=== PATIENT | female | born 1955 | race Caucasian/White ===

== ENCOUNTER 2020-10-11 10:39 | Outpatient (REF) | payer OTHER, SELFPAY ==
[2020-10-11 11:54] LABS: Glucose Urine UA NEG (NEG); Leukocyte Esterase Urine NEG (NEG); Nitrite Urine NEG (NEG); PH 6.5 (5.0-8.0); Urine Blood NEG (NEG); Urine Ketones NEG (NEG); Urine Protein NEG (NEG-TRACE)
[2020-10-11 11:57] LABS: Appearance Urine CLEAR; Color Urine YELLOW
[2020-10-11 11:58] LABS: MANUAL DIFF FLAG NO
[2020-10-11 12:04] LABS: Basophils Percent Auto 0.5 % (0-2); Eosinophils Absolute Auto 0.2 X10*3/uL (0.0-0.4); Eosinophils Percent Auto 4.1 % (0-4); Hematocrit 39.7 % (37-47); Hemoglobin 13.2 g/dl (12.0-16.0); Lymphocytes Absolute Auto 1.2 X10*3/uL (1.2-4.9); Lymphocytes Percent Auto 28.5 % (20-40); Mean Corpuscular HGB Conc 33.2 g/dl (31.0-35.0); Mean Corpuscular Hemoglobin 32.4 pg (27.0-33.0); Mean Corpuscular Volume 97.3 fL (80-98); Mean Platelet Volume 9.5 fL (9.4-12.3); Monocytes Absolute Auto 0.3 X10*3/uL (0.1-1.2); Monocytes Percent Auto 7.6 % (2-11); Neutrophils Absolute Auto 2.4 X10*3/uL (2.0-8.3); Neutrophils Percent Auto 59.3 % (45-73); Platelet Count 387 X10*3/uL (160-400); Red Blood Count 4.08 X10*6/uL (4.20-5.50); Red Cell Distribution Width 11.9 % (11.0-16.0); White Blood Count 4.1 X10*3/uL (4.8-10.8)
[2020-10-11 12:30] LABS: Alanine Aminotransferase 12 U/L (0-31); Albumin Level 4.3 g/dL (3.5-5.0); Alkaline Phosphatase 86 U/L (39-117); Anion Gap 14 (12-20); Aspartate Amino Transferase 16 U/L (5-31); Bilirubin Total 0.2 mg/dL (0.0-1.0); Blood Urea Nitrogen 17 mg/dL (9-16); C Reactive Protein 0.06 mg/dL (< or = 0.50); Calcium 9.1 mg/dL (8.4-10.2); Carbon Dioxide 26 mmol/L (22-29); Chloride 105 mmol/L (96-108); Cholesterol 200 mg/dL; Estimated Glomerular Filt Rate > 60; Glucose Fasting 95 mg/dL (60-99); HDL Cholesterol 59 mg/dL; LDL Cholesterol Calculated 127 mg/dl; Potassium 4.2 mmol/L (3.3-5.1); Sodium 141 mmol/L (135-145); Total Protein 7.1 g/dL (6.5-8.0); Triglycerides 71 mg/dL
[2020-10-11 12:40] LABS: TSH reflex Free T4 1.33 uIU/mL (0.32-4.0)
[2020-10-11 12:56] LABS: Erythrocyte Sedimentation Rate 6 MM/HR (0-20)
[2020-10-12 05:32] LABS: Lyme Abs Screen <0.90 index
[2020-10-12 13:31] LABS: Anti Nuclear Antibody Screen NEGATIVE (NEGATIVE)
== END 2020-10-11 10:40 | disposition home or self-care (01) ==
LOC: HO.LAB 10:39
PROVIDERS: PCP Internal Medicine; Visit Provider Internal Medicine
DX: R53.83 Other fatigue (principal); M79.10 Myalgia, unspecified site; R20.2 Paresthesia of skin; M79.604 Pain in right leg; M79.605 Pain in left leg; E78.5 Hyperlipidemia, unspecified
CPT/HCPCS: 36415; 80053; 80061; 81003; 82550; 84443; 85025; 85652; 86038; 86039; 86140; 86617; 86618

== ENCOUNTER 2021-01-15 07:47 | Outpatient (REF) | payer OTHER, SELFPAY ==
--- NOTE | 2021-01-15 07:51 | EMG_ITS ---
This is a 65-year-old woman, who has had pain in both of her legs for many years as well as low back pain. 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 PHYSICAL EXAMINATION: On examination, she is alert and oriented with normal intellectual functions. Cranial nerves II through XII are normal. Muscle tone and strength are normal in all 4 extremities. Reflexes symmetrical. IMPRESSION: Rule out lumbar radiculopathy. Nerve conduction EMG study: Mild motor axonal loss in the peroneal nerves bilaterally, otherwise normal study. No evidence of diffuse neuropathy. Normal EMG of the left L4-S1 innervated muscles. MD JESSICA Thao/ALEKSANDR / [id number]
== END 2021-01-15 07:48 | disposition home or self-care (01) ==
LOC: HO.NEURO 07:47
PROVIDERS: Visit Provider Internal Medicine
DX: R20.2 Paresthesia of skin (principal); M79.604 Pain in right leg; M79.605 Pain in left leg
CPT/HCPCS: 95885; 95912

== ENCOUNTER → 2022-05-29 15:09 | Outpatient (BNVA) | payer OTHER, SELFPAY | PROVIDERS: PCP Internal Medicine; Visit Provider Nurse Practitioner Psychiatric/Mental Health | DX: F11.20 Opioid dependence, uncomplicated (principal); Z51.81 Encounter for therapeutic drug level monitoring; Z79.899 Other long term (current) drug therapy | CPT/HCPCS: 80305 ==

== ENCOUNTER → 2022-06-03 15:01 | Outpatient (BNVA) | payer OTHER, SELFPAY | PROVIDERS: PCP Internal Medicine; Visit Provider Nurse Practitioner Psychiatric/Mental Health | DX: F11.20 Opioid dependence, uncomplicated (principal); Z51.81 Encounter for therapeutic drug level monitoring; Z79.899 Other long term (current) drug therapy | CPT/HCPCS: 80305 ==

== ENCOUNTER → 2022-06-10 15:30 | Outpatient (BNVA) | payer OTHER, SELFPAY | PROVIDERS: PCP Internal Medicine; Visit Provider Nurse Practitioner Psychiatric/Mental Health | DX: F11.20 Opioid dependence, uncomplicated (principal); Z51.81 Encounter for therapeutic drug level monitoring; Z79.899 Other long term (current) drug therapy | CPT/HCPCS: 80305 ==

== ENCOUNTER → 2022-06-19 15:38 | Outpatient (BNVA) | payer OTHER, SELFPAY | PROVIDERS: PCP Internal Medicine; Visit Provider Nurse Practitioner Psychiatric/Mental Health | DX: Z51.81 Encounter for therapeutic drug level monitoring (principal); F11.20 Opioid dependence, uncomplicated | CPT/HCPCS: 80305 ==

== ENCOUNTER → 2022-06-29 15:08 | Outpatient (BNVA) | payer OTHER, SELFPAY | PROVIDERS: PCP Internal Medicine; Visit Provider Nurse Practitioner Psychiatric/Mental Health | DX: Z51.81 Encounter for therapeutic drug level monitoring (principal) ==

== ENCOUNTER → 2022-07-07 15:16 | Outpatient (BNVA) | payer OTHER, SELFPAY | PROVIDERS: PCP Internal Medicine; Visit Provider Nurse Practitioner Psychiatric/Mental Health | DX: Z51.81 Encounter for therapeutic drug level monitoring (principal); F11.20 Opioid dependence, uncomplicated; F41.9 Anxiety disorder, unspecified | CPT/HCPCS: 80305 ==

== ENCOUNTER → 2022-07-21 15:52 | Outpatient (BNVA) | payer OTHER, SELFPAY | PROVIDERS: PCP Internal Medicine; Visit Provider Nurse Practitioner Psychiatric/Mental Health | DX: F11.20 Opioid dependence, uncomplicated (principal); Z51.81 Encounter for therapeutic drug level monitoring; Z79.899 Other long term (current) drug therapy ==

== ENCOUNTER 2022-08-13 15:40 | Outpatient (REF) | payer OTHER, SELFPAY ==
[2022-08-13 16:09] LABS: Basophils Percent Auto 0.5 % (0-2); Eosinophils Absolute Auto 0.2 X10*3/uL (0.0-0.4); Eosinophils Percent Auto 5.6 % (0-4); Hematocrit 37.8 % (37.0-47.0); Hemoglobin 12.8 g/dl (12.0-16.0); Imm Gran Abs Auto 0.01 X10*3/uL (0.00-0.03); Imm Gran Pct Auto 0.3 % (0.0-0.4); Lymphocytes Absolute Auto 1.3 X10*3/uL (1.2-4.9); Lymphocytes Percent Auto 33.7 % (20-40); MANUAL DIFF FLAG NO; Mean Corpuscular HGB Conc 33.9 g/dl (31.0-35.0); Mean Corpuscular Hemoglobin 32.2 pg (27.0-33.0); Mean Platelet Volume 9.1 fL (9.4-12.3); Monocytes Absolute Auto 0.4 X10*3/uL (0.1-1.2); Monocytes Percent Auto 10.2 % (2-11); Neutrophils Absolute Auto 1.9 x10*3/uL (2.0-8.3); Neutrophils Percent Auto 49.7 % (45-73); Platelet Count 354 X10*3/uL (160-400); Red Blood Count 3.98 X10*6/uL (4.20-5.50); Red Cell Distribution Width 11.8 % (11.0-16.0); White Blood Count 3.7 X10*3/uL (4.8-10.8)
[2022-08-13 16:29] LABS: Appearance Urine Clear; Color Urine Yellow; Glucose Urine UA Negative (Negative); Leukocyte Esterase Urine Trace (Negative); Nitrite Urine Negative (Negative); Specific Gravity - Urine 1.025 (1.005-1.025); UMIC TRIGGER UACC YES; Urine Blood Negative (Negative); Urine Ketones Negative (Negative); Urine Protein Negative (Neg-Trace)
[2022-08-13 16:32] LABS: Bacteria Urine None Seen (None Seen); Hyaline Casts Urine 0-2 /LPF (0-2); RBC Urine 0-2 /HPF (0-2); WBC Urine 0-5 /HPF (0-5)
[2022-08-13 16:37] LABS: Alanine Aminotransferase 10 U/L (0-31); Albumin Level 4.2 g/dL (3.5-5.0); Alkaline Phosphatase 100 U/L (39-117); Anion Gap 8 (12-20); Aspartate Amino Transferase 16 U/L (5-31); Bilirubin Direct < 0.2 mg/dL (0.0-0.5); Bilirubin Total 0.4 mg/dL (0.0-1.0); Blood Urea Nitrogen 19 mg/dL (9-16); Calcium 9.2 mg/dL (8.4-10.2); Carbon Dioxide 26 mmol/L (22-29); Chloride 110 mmol/L (96-108); Estimated Glomerular Filt Rate > 60; Glucose Random 118 mg/dL (60-115); Potassium 4.1 mmol/L (3.3-5.1); Sodium 140 mmol/L (135-145); Total Protein 6.8 g/dL (6.5-8.0)
[2022-08-13 16:43] LABS: Erythrocyte Sedimentation Rate 5 MM/HR (0-20)
[2022-08-13 16:53] LABS: TSH reflex Free T4 1.33 uIU/mL (0.32-4.0); Vitamin D 25-OH Total 6.9 ng/mL (>30)
== END 2022-08-13 15:41 | disposition home or self-care (01) ==
LOC: HO.LAB 15:40
PROVIDERS: Absent Provider Nurse Practitioner Psychiatric/Mental Health; PCP Internal Medicine; Visit Provider Internal Medicine
DX: R10.9 Unspecified abdominal pain (principal); E55.9 Vitamin D deficiency, unspecified; F11.20 Opioid dependence, uncomplicated
CPT/HCPCS: 36415; 80053; 81001; 81003; 82248; 82306; 84443; 85025; 85652

== ENCOUNTER → 2022-08-18 16:01 | Outpatient (BNVA) | payer OTHER, SELFPAY | PROVIDERS: PCP Internal Medicine; Visit Provider Nurse Practitioner Psychiatric/Mental Health | DX: Z13.89 Encounter for screening for other disorder (principal) ==

== ENCOUNTER → 2022-08-25 11:00 | Outpatient (BNVA) | payer OTHER, SELFPAY | PROVIDERS: PCP Internal Medicine; Visit Provider Physician Assistant | DX: Z13.89 Encounter for screening for other disorder (principal) ==

== ENCOUNTER 2022-08-25 12:29 | Outpatient (REF) | payer OTHER, SELFPAY ==
[2022-08-25 14:13] LABS: MANUAL DIFF FLAG NO
[2022-08-25 14:23] LABS: Basophils Percent Auto 0.2 % (0-2); Eosinophils Absolute Auto 0.2 X10*3/uL (0.0-0.4); Hematocrit 36.2 % (37.0-47.0); Hemoglobin 12.1 g/dl (12.0-16.0); Imm Gran Abs Auto 0.01 X10*3/uL (0.00-0.03); Imm Gran Pct Auto 0.2 % (0.0-0.4); Lymphocytes Absolute Auto 1.3 X10*3/uL (1.2-4.9); Lymphocytes Percent Auto 33.2 % (20-40); Mean Corpuscular HGB Conc 33.4 g/dl (31.0-35.0); Mean Corpuscular Hemoglobin 32.1 pg (27.0-33.0); Mean Platelet Volume 9.2 fL (9.4-12.3); Monocytes Absolute Auto 0.4 X10*3/uL (0.1-1.2); Monocytes Percent Auto 9.4 % (2-11); Neutrophils Absolute Auto 2.1 x10*3/uL (2.0-8.3); Platelet Count 346 X10*3/uL (160-400); Red Blood Count 3.77 X10*6/uL (4.20-5.50)
[2022-08-25 14:38] LABS: Lipase 17 U/L (8-78)
[2022-09-13 07:11] LABS: Alcohol, Ethyl Urine Screen SEE COMMENTS
== END 2022-08-25 12:30 | disposition home or self-care (01) ==
LOC: HO.WFDLDS 12:29
PROVIDERS: Visit Provider Physician Assistant
DX: R10.10 Upper abdominal pain, unspecified (principal); K52.9 Noninfective gastroenteritis and colitis, unspecified; R11.2 Nausea with vomiting, unspecified; F10.10 Alcohol abuse, uncomplicated
CPT/HCPCS: 80307; 83690; 85025

== ENCOUNTER 2022-09-02 16:05 | Outpatient (REF) | payer OTHER, SELFPAY ==
[2022-09-06 06:38] LABS: Fecal Fat Qualitative Abnormal (Normal)
[2022-09-11 13:59] LABS: Pancreatic Elastase-1 466 mcg/g
== END 2022-09-02 16:06 | disposition home or self-care (01) ==
LOC: HO.LNP 16:05
PROVIDERS: Visit Provider Physician Assistant
DX: R19.7 Diarrhea, unspecified (principal); R11.2 Nausea with vomiting, unspecified
CPT/HCPCS: 82656; 82705

== ENCOUNTER → 2022-09-15 16:02 | Outpatient (BNVA) | payer OTHER, SELFPAY | PROVIDERS: PCP Internal Medicine; Visit Provider Nurse Practitioner Psychiatric/Mental Health | DX: Z13.89 Encounter for screening for other disorder (principal) ==

== ENCOUNTER → 2022-09-16 14:59 | Outpatient (BNVA) | payer OTHER, SELFPAY | PROVIDERS: PCP Internal Medicine; Visit Provider Physician Assistant | DX: Z13.89 Encounter for screening for other disorder (principal) ==

== ENCOUNTER 2022-09-28 14:38 | Outpatient (REF) | payer OTHER, SELFPAY ==
--- NOTE | ~2022-09-28 | US_ITS ---
EXAMINATION: US ABDOMEN COMPLETE CLINICAL INFORMATION: Upper abdominal pain, unspecified. COMPARISON: Ultrasound abdomen complete 10/08/2015. TECHNIQUE: Real-time imaging of the abdominal viscera. FINDINGS: PANCREAS: Normal. ABDOMINAL AORTA: The proximal, mid, and distal segments are normal in caliber. INFERIOR VENA CAVA: Visualized portions are normal. LIVER: The liver is normal in size. The liver contour is normal. There is mild increased liver parenchymal echogenicity, consistent with hepatic steatosis. No focal hepatic lesion. There is no intrahepatic biliary duct dilatation seen. GALLBLADDER: Normal. The gallbladder is physiologically distended without evidence of stones, sludge, polyps, wall thickening or pericholecystic fluid. COMMON BILE DUCT: Normal in caliber measuring 0.5 cm in diameter. RIGHT KIDNEY: Multiple punctate echogenic foci are noted which do not shadow and do not demonstrate twinkle artifact probably representing vascular interfaces rather than calculi. No hydronephrosis. No renal calculi or focal parenchymal lesions. The kidney measures 9.2 cm in maximum dimension. LEFT KIDNEY: There is a single 2 mm echogenic focus present at the lower pole of the left kidney that may represent a nonobstructing stone. In addition, similar punctate echogenic foci without shadowing or twinkle artifact are noted in the left renal pelvis as well, also probably represented vascular interfaces. No hydronephrosis . The kidney measures 8.5 cm in maximum dimension. SPLEEN: Normal. The spleen measures 8.4 cm in maximum dimension. FREE FLUID: None. US/US abdomen complete IMPRESSION: 1. Hepatic steatosis. 2. Punctate echogenic foci in both kidneys which do not demonstrate twinkle artifact and probably represents vascular interfaces rather calculi. 3. A 2 mm large echogenic focus in the left lower pole may represent a nonobstructing calculus.
== END 2022-09-28 14:39 | disposition home or self-care (01) ==
LOC: HO.HMGCX 14:38
PROVIDERS: PCP Internal Medicine; Visit Provider Physician Assistant
DX: R10.10 Upper abdominal pain, unspecified (principal); Z78.9 Other specified health status
CPT/HCPCS: 76700

== ENCOUNTER → 2022-10-13 16:10 | Outpatient (BNVA) | payer OTHER, SELFPAY | PROVIDERS: PCP Internal Medicine; Visit Provider Nurse Practitioner Psychiatric/Mental Health | DX: Z13.89 Encounter for screening for other disorder (principal) ==

== ENCOUNTER → 2022-10-27 14:30 | Outpatient (BNVA) | payer OTHER, SELFPAY | PROVIDERS: PCP Internal Medicine; Visit Provider Nurse Practitioner Psychiatric/Mental Health | DX: Z13.89 Encounter for screening for other disorder (principal) ==

== ENCOUNTER → 2022-11-24 14:39 | Outpatient (BNVA) | payer OTHER, SELFPAY | PROVIDERS: PCP Internal Medicine; Visit Provider Nurse Practitioner Psychiatric/Mental Health ==

== ENCOUNTER 2023-01-20 14:58 | Outpatient (AMB) | payer OTHER, SELFPAY ==
--- NOTE | 2023-01-20 15:01 | A.OFFVIS_ITS ---
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 Has decided she is going to retire, excited to start this process. Reports that she would like to be done working before her birthday in April. Patient expressing anxiety as she has found a lump in her breast and is concerned that it is a recurrence of cancer. She has an ultrasound and mammogram scheduled for February 12. 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 [facility] Medical History (Updated 01/21/23 @ 17:40 by Lisa Kidd CNP) Allergic rhinitis Bilateral lower extremity pain Depression Fatigue History of breast cancer Lumbar degenerative disc disease Myalgia Opioid use disorder, moderate, dependence Osteopenia Paresthesia of bilateral legs Surgical History History of lumpectomy of both breasts Hx of tonsillectomy Family History Father Hypertension Cardiovascular disease Stroke Mother Hypertension Stroke Cardiovascular disease Sister Breast cancer Maternal Aunt Breast cancer Other Mental health problem Substance abuse Social History Housing: House Alcohol intake: current Alcohol intake frequency: 0-2 drinks per day Patient Tobacco Use Status: Never used Tobacco e-Cigarette/Vaping Use: Never Used Second Hand Smoke Exposure: Yes service: No Current occupational status: employed Cognitive needs: No Hearing needs: No Vision needs: No Review of Systems Const Reports as per HPI and Reports no additional complaints Physical Exam Vital Signs: Last Vital Signs Pulse 80 01/20/23 15:19 BP 128/72 01/20/23 15:19 Pulse Ox 97 01/20/23 15:19 Oxygen Delivery Method Room Air 01/20/23 15:19 Const General: cooperative, no acute distress and alert Nutritional Appearance: average body habitus Orientation/consciousness: patient oriented x3 Limitations: no limitations Neuro General: patient oriented x3 Psych Appearance: grossly normal Mental Status: mental status grossly normal Speech and movement: Normal speech and movement present Affect: normal affect Attitude: cooperative Thought process: Normal thought process present Thought content: Normal thought content present Insight: Good insight present (Psych) Judgement: Good judgement present (Psych) Results AMB 14 Panel Urine Drug Screen Urine Marijuana (THC) Negative Last Edit by Sheila Tenorio CMA on 01/20/23 15:30 Urine Cocaine Negative Last Edit by Sheila Tenorio CMA on 01/20/23 15:30 Urine Morphine Negative Last Edit by Sheila Tenorio CMA on 01/20/23 15:30 Urine Methamphetamine Negative Last Edit by Sheila Tenorio CMA on 01/20/23 15:30 Urine Amphetamine Negative Last Edit by Sheila Tenorio CMA on 01/20/23 15:3 0 Urine Benzodiazepine Negative Last Edit by Sheila Tenorio CMA on 01/20/23 15:30 Urine Barbiturates Negative Last Edit by Sheila Tenorio CMA on 01/20/23 15: 30 Urine Methadone Negative Last Edit by Sheila Tenorio CMA on 01/20/23 15:30 Urine Buprenorphine Positive Last Edit by Sheila Tenorio CMA on 01/20/23 15 :30 Urine Tricyclic Antidepressant Positive Last Edit by Sheila Tenorio CMA on 01/20/23 15:30 Urine MDMA Negative Last Edit by Sheila Tenorio CMA on 01/20/23 15:30 Urine Oxycodone Negative Last Edit by Sheila Tenorio CMA on 01/20/23 15:30 Urine Phencyclidine Negative Last Edit by Sheila Tenorio CMA on 01/20/23 15 :30 Urine Propoxyphene Negative Last Edit by Sheila Tenorio CMA on 01/20/23 15: 30 Results Reviewed Results Reviewed: Laboratory Last Values POC Urine Buprenorphine Positive 01/20/23 15:06 POC Urine Morphine Negative 01/20/23 15:06 POC Urine Oxycodone Negative 01/20/23 15:06 POC Urine Methadone Negative 01/20/23 15:06 POC Urine Propoxyphene Negative 01/20/23 15:06 POC Urine Barbiturates Negative 01/20/23 15:06 POC U Tricyclic Antidpr Positive 01/20/23 15:06 POC Urine PCP Negative 01/20/23 15:06 POC Ur Amphetamines Negative 01/20/23 15:06 POC Ur Methamphetamine Negative 01/20/23 15:06 POC Urine MDMA Negative 01/20/23 15:06 POC Ur Benzodiazepine Negative 01/20/23 15:06 POC Urine Cocaine Negative 01/20/23 15:06 POC Ur Marijuana (THC) Negative 01/20/23 15:06 Assessment & Plan Assessment & Plan (1) Opioid use disorder, moderate, dependence: Code(s): F11.20 - Opioid dependence, uncomplicated Plan: * Continue Suboxone at current dose * Follow-up 4 weeks * Encouraged patient to call office with any questions or concerns prior to next appointment. Orders: Orders AMB 14 Panel Urine Drug Screen 01/20/23 Z51.81 - Encounter for therapeutic drug level monitoring Medications: Refilled buprenorphine-naloxone 8-2 mg (Suboxone) 2 film sublingual DAILY 60 ea 0RF buprenorphine-naloxone 8-2 mg (Suboxone) 2 film sublingual DAILY 28 ea 0RF Coding Level of Care Code Est Pt Level 3 (72422) Diagnoses Opioid use disorder, moderate, dependence F11.20
[2023-01-20 15:19] VITALS: BP 128/72; PULSE 80; O2SAT 97
== END 2023-01-20 15:35 | disposition home or self-care (01) ==
LOC: HO.HCC 14:58
PROVIDERS: PCP Internal Medicine; Visit Provider Nurse Practitioner Psychiatric/Mental Health
DX: F11.20 Opioid dependence, uncomplicated (principal)
CPT/HCPCS: 99213

== ENCOUNTER → 2023-01-20 14:58 | Outpatient (BNVA) | payer OTHER, SELFPAY | PROVIDERS: PCP Internal Medicine; Visit Provider Nurse Practitioner Psychiatric/Mental Health | DX: F11.20 Opioid dependence, uncomplicated (principal); F41.9 Anxiety disorder, unspecified; Z51.81 Encounter for therapeutic drug level monitoring | CPT/HCPCS: 80305 ==

== ENCOUNTER → 2023-02-12 13:00 | Outpatient (BNV) | payer OTHER, SELFPAY | PROVIDERS: PCP Internal Medicine; Visit Provider Radiology Diagnostic Radiology | DX: N63.11 Unspecified lump in the right breast, upper outer quadrant (principal); Z85.3 Personal history of malignant neoplasm of breast | CPT/HCPCS: 76642; 77062; 77066 ==

== ENCOUNTER 2023-02-12 13:08 | Outpatient (REF) | payer OTHER, SELFPAY ==
--- NOTE | ~2023-02-12 | MM_ITS ---
EXAMINATION: MM DIAGNOSTIC DIGITAL BREAST TOMOSYNTHESIS, BILATERAL RIGHT BREAST ULTRASOUND CLINICAL INFORMATION: History of conservatively treated right breast cancer now with a palpable lump in the 10:00 position of the right breast. Patient also presents for screening left mammography. COMPARISON: Mammography: This study is compared with prior sonography mammography dating back to 2018. MAMMOGRAM: TECHNIQUE: Digital breast tomosynthesis is performed in both the craniocaudal and mediolateral oblique views along with computer-aided detection (CAD). Synthesized 2D images are generated from the tomosynthesis. FINDINGS: There are scattered areas of fibroglandular density (ACR BI-RADS breast composition Category b). There are architectural changes of the medial aspect of the right breast from prior breast cancer surgery. There are no significant masses, abnormal calcifications, or other abnormalities. There are no mammographic signs of malignancy at the current time. ULTRASOUND: Sonography of the palpable area of concern, 10:00 7 cm from the nipple, was performed. In this location there is a 5 mm x 4 mm x 2 mm superficially located, normal intramammary lymph node. MM/MM tomosynthesis diagnostic BI IMPRESSION: No mammographic evidence of malignancy. A normal, superficially located lymph node accounts for the patient's palpable lump. Results are provided to the patient at time of visit by the technologist. ASSESSMENT: BI-RADS BI-RADS 2 - Benign Findings RECOMMENDATION: 1 year F/U This patient's information was entered into a reminder system with a target due date for their next mammogram.
== END 2023-02-12 13:09 | disposition home or self-care (01) ==
LOC: HO.MAMMO 13:08
PROVIDERS: PCP Internal Medicine; Visit Provider Internal Medicine
DX: N63.11 Unspecified lump in the right breast, upper outer quadrant (principal)
CPT/HCPCS: 76642; 77062; 77066

== ENCOUNTER 2023-02-15 16:33 | Emergency (ER) | payer OTHER, SELFPAY ==
--- NOTE | 2023-02-15 18:30 | ED.GENADULT ---
HPI - General Adult General Chief complaint: Abdominal Pain Stated complaint: vomitng/abd pain Source: patient Mode of arrival: ambulatory Limitations: no limitations History of Present Illness HPI narrative: Patient is a 67 year old assigned female at with a history of alcohol abuse and anxiety presenting to the emergency department today with abdominal pain. Patient states that starting earlier today she began to have abdominal pain, nausea, and vomiting. Patient denies any dizziness, lightheadedness, fever, chills, blurry vision, double vision, loss of vision, chest pain, difficulty breathing, shortness of breath, back pain, night sweats, pain with urination, increased urinary frequency, increased urinary urgency, blood in her urine or stool, syncope or a near syncopal episode, recent trauma or falls, bowel incontinence, bladder incontinence, bowel retention, bladder retention, or any other complaints at this time. Onset (ago): hour(s) Location: abdomen Radiation: non-radiation Severity: mild Severity scale (1-10): 3 Quality: aching and dull Pain Consistency: constant Relieving factors: none Exacerbating factors: none Associated symptoms: nausea/vomiting Treatments prior to arrival: none Related Data Previous Rx's Medication Instructions Recorded loratadine 10 mg tablet (Allergy 10 mg PO DAILY PRN allergy 01/10/21 Relief (loratadine)) symptoms 90 days #90 tabs ibuprofen 800 mg tablet 800 mg PO Q8H PRN for pain #90 tabs 04/06/21 pantoprazole 40 mg tablet,delayed 40 mg PO DAILY 30 days #30 tabs 05/25/22 release pantoprazole 20 mg tablet,delayed 40 mg PO ONCE 30 days #60 tabs 08/25/22 release bisacodyl 5 mg tablet,delayed 10 mg PO ONCE colonoscopy prep 1 09/16/22 release (Dulcolax (bisacodyl)) day #2 tabs polyethylene glycol 3350 17 238 g PO ONCE 1 day #238 grams 09/16/22 gram/dose oral powder (Miralax) methylcellulose (laxative) 500 mg 500 mg PO BID #60 tabs 09/17/22 tablet (Citrucel) lamotrigine 150 mg tablet 150 mg PO DAILY #30 tabs 11/24/22 buprenorphine 8 mg-naloxone 2 mg 2 film sublingual DAILY #60 ea 02/17/23 sublingual film (Suboxone) Allergies Allergy/AdvReac Type Severity Reaction Status Date / Time alprazolam [From XANAX] Allergy Unknown SEIZURE Verified 02/17/23 15:34 tramadol Allergy Unknown Unknown Verified 02/17/23 15:34 Cymbalta Allergy Unknown headaches Uncoded 02/17/23 15:34 Gabapentin Allergy Unknown abdominal Uncoded 02/17/23 15:34 pains Review of Systems Constitutional: Constitutional: Reports no additional constitutional complaints, Denies chills, Denies fever(s) and Denies night sweats Eyes: Eyes: Reports no additional eye complaints, Denies blurry vision, Denies change in vision, Denies diplopia, Denies eye discharge, Denies loss of vision and Denies eye pain ENT: Denies dizziness Cardiovascular: Cardiovascular: Reports no additional cardiovascular complaints, Denies chest pain, Denies lightheadedness, Denies Loss of Consciousness and Denies dyspnea Respiratory: Respiratory: Reports no additional respiratory complaints and Denies dyspnea Gastrointestinal: Gastrointestinal: Reports no additional gastrointestinal complaints, Reports abdominal pain, Denies melena, Denies hematochezia, Denies change in bowel habits, Denies change in stool character, Reports nausea and Reports vomiting Genitourinary: Genitourinary: Denies hematuria, Denies urinary frequency, Denies dysuria, Denies urinary incontinence, Denies urinary hesitancy and Denies urinary urgency Musculoskeletal: Musculoskeletal: Reports no additional musculoskeletal complaints, Denies numbness and Denies tingling Neurologic: Denies dizziness, Denies loss of vision, Denies numbness and Denies tingling Psychiatric: Psychiatric: Reports no additional psychiatric complaints Endocrine: Endocrine: Reports no additional endocrine complaints Hematologic/Lymphatic: Hematologic/Lymphatic: Reports no additional hematologic/lymphatic complaints Allergic/Immunologic: Allergic/Immunologic: Reports no additional allergic/immunologic complaints [facility] Past Medical History Attestation statement: The following information was validated with the patient. Source: old records reviewed and nursing notes reviewed Medical History Abdominal pain Allergic rhinitis Bilateral lower extremity pain Depression Diarrhea Fatigue History of breast cancer History of opioid use Lumbar degenerative disc disease Lump of right breast Myalgia Nausea Nausea & vomiting Opioid use disorder, moderate, dependence Osteopenia Paresthesia of bilateral legs Poor historian Sinusitis Surgical History History of lumpectomy of both breasts Hx of tonsillectomy Family History Family History Father Hypertension Cardiovascular disease Stroke Mother Hypertension Stroke Cardiovascular disease Sister Breast cancer Maternal Aunt Breast cancer Other Mental health problem Substance abuse Social History Social History Housing: House Alcohol intake: current Alcohol intake frequency: 0-2 drinks per day Patient Tobacco Use Status: Never used Tobacco e-Cigarette/Vaping Use: Never Used Second Hand Smoke Exposure: Yes service: No Current occupational status: employed Cognitive needs: No Hearing needs: No Vision needs: No Physical Exam ED Vital Signs: BMI result Body Mass Index 20.0 Const General: cooperative, no acute distress, alert and awake Nutritional Appearance: well nourished Orientation/consciousness: patient oriented x3 Limitations: no limitations HENMT Head: Yes normal to inspection and Yes atraumatic Ears: hearing grossly normal bilaterally and external ears normal General nose exam: Normal external nose present, no nasal discharge noted and no epistaxis Face and sinus: Yes normal facial exam, No abrasion and No laceration Mouth: Normal oral and palatal mucosa present, no drooling and no muffled voice Eyes General: appearance normal, both eyes and all related structures Periorbital: periorbital findings normal Eyelids: Yes eyelids normal Conjunctivae: conjunctivae normal Pupils: Equal, round and reactive pupils present EOM: EOMs intact bilaterally Neck Neck: Yes normal visual inspection, Yes full ROM and Yes no lymphadenopathy Chest Chest palpation & inspection: normal inspection of the chest Resp Effort & Inspection: normal respiratory effort and able to speak in complete sentences GI Inspection: Yes normal to inspection Neuro General: patient oriented x3 and moves all extremities Cranial nerves: Yes Equal, round and reactive pupils present Cognition (Neuro): normal cognition Motor exam (neuro): 5/5 motor strength present throughout Sensory Exam: Normal double simultaneous stimulation for sensation Coordination: [id number] test normal Extrem General: Yes normal to inspection, Yes full ROM and Yes capillary refill normal Psych Appearance: grossly normal Mental Status: mental status grossly normal Affect: normal affect Attitude: cooperative Thought process: Normal thought process present Thought content: Normal thought content present Insight: Good insight present (Psych) Course Course Course Narrative: RME performed by Sharon Johnson PA-C. Patient is a 67 year old assigned female at presenting to the emergency department with abdominal pain and nausea. Patient has a history of alcohol and opiate abuse. Labs and swabs ordered. Patient placed back in the waiting room pending room availability and results. Medical Decision Making Medical Decision Making [facility] Narrative: Patient is a 67 year old assigned female at with a history of anxiety and alcohol abuse presenting to the emergency department today with abdominal pain, nausea, and vomiting. Patient's limited physical exam performed in triage was unremarkable. Patient's blood work was unremarkable. Patient's EKG was unremarkable. Patient eloped from the department before myself or any of the other emergency department providers could perform a more thorough physical examination, explain physical examination or test results, discuss need for or lack there of for further work up, or treatment plan / treatments. Differential Diagnosis Differential Diagnoses: The differential diagnosis associated with the presentation includes Abdominal pain Nausea Vomiting Gastroenteritis Gastritis Admission/Observation Consideration of admission/observation: Escalation of care including admission/observation considered Patient would have been admitted to the hospital had her work up had any findings where hospital admission was appropriate, her clinical presentation warranted hospital admission, and she hadn't eloped from the department. Lab Data [facility] Lab Attestation statement: I reviewed the patient's lab results. My interpretation of these studies and their corresponding values is that they are grossly normal. 02/15/23 19:36 02/15/23 19:36 Labs: Lab Results 02/15/23 02/15/23 02/15/23 Range/Units 19:36 19:36 19:36 WBC 5.3 (4.8-10.8) X10*3/uL RBC 4.37 (4.20-5.50) X10*6/uL Hgb 11.3 L (12.0-16.0) g/dl Hct 35.8 L (37.0-47.0) % MCV 81.9 (80.0-98.0) fL MCH 25.9 L (27.0-33.0) pg MCHC 31.6 (31.0-35.0) g/dl RDW 17.2 H (11.0-16.0) % Plt Count 359 (160-400) X10*3/uL MPV 8.7 L (9.4-12.3) fL Immature Gran % (Auto) 0.2 (0.0-0.4) % Neut % (Auto) 64.6 (45-73) % Lymph % (Auto) 22.3 (20-40) % Swisher % (Auto) 9.5 (2-11) % Eos % (Auto) 3.0 (0-4) % Baso % (Auto) 0.4 (0-2) % Lymph # (Auto) 1.2 (1.2-4.9) X10*3/uL Swisher # (Auto) 0.5 (0.1-1.2) X10*3/uL Eos # (Auto) 0.2 (0.0-0.4) X10*3/uL Baso # (Auto) 0.0 (0.0-0.2) X10*3/uL Abs Immat Gran (auto) 0.01 (0.00-0.03) X10*3/uL Absolute Neuts (auto) 3.4 (2.0-8.3) x10*3/uL Absolute Nucleated RBC 0.000 (0.0-0.012) X10*3/uL Nucleated RBC % (auto) 0.0 (0.0-0.2) /100WBC Sodium 140 (135-145) mmol/L Potassium 4.4 (3.3-5.1) mmol/L Chloride 109 H (96-108) mmol/L Carbon Dioxide 24 (22-29) mmol/L Anion Gap 11 L (12-20) BUN 11 (9-16) mg/dL Creatinine 0.70 (0.5-1.4) mg/dL Estim Creat Clear Calc 58.8 Estimated GFR > 60 Random Glucose 107 (60-115) mg/dL Calcium 9.0 (8.4-10.2) mg/dL Magnesium 1.9 (1.6-2.6) mg/dL Total Bilirubin 0.4 (0.0-1.0) mg/dL AST 20 (5-31) U/L ALT 16 (0-31) U/L Alkaline Phosphatase 92 (39-117) U/L Troponin I High Sens 3.0 (<3.5-17.0) ng/L Total Protein 7.2 (6.5-8.0) g/dL Albumin 4.1 (3.5-5.0) g/dL Lipase 15 (8-78) U/L Ethyl Alcohol < 10 mg/dL COVID-19 ([facility]) (Negative) COVID-19 Clin Com 02/15/23 Range/Units 19:36 WBC (4.8-10.8) X10*3/uL RBC (4.20-5.50) X10*6/uL Hgb (12.0-16.0) g/dl Hct (37.0-47.0) % MCV (80.0-98.0) fL MCH (27.0-33.0) pg MCHC (31.0-35.0) g/dl RDW (11.0-16.0) % Plt Count (160-400) X10*3/uL MPV (9.4-12.3) fL Immature Gran % (Auto) (0.0-0.4) % Neut % (Auto) (45-73) % Lymph % (Auto) (20-40) % Swisher % (Auto) (2-11) % Eos % (Auto) (0-4) % Baso % (Auto) (0-2) % Lymph # (Auto) (1.2-4.9) X10*3/uL Swisher # (Auto) (0.1-1.2) X10*3/uL Eos # (Auto) (0.0-0.4) X10*3/uL Baso # (Auto) (0.0-0.2) X10*3/uL Abs Immat Gran (auto) (0.00-0.03) X10*3/uL Absolute Neuts (auto) (2.0-8.3) x10*3/uL Absolute Nucleated RBC (0.0-0.012) X10*3/uL Nucleated RBC % (auto) (0.0-0.2) /100WBC Sodium (135-145) mmol/L Potassium (3.3-5.1) mmol/L Chloride (96-108) mmol/L Carbon Dioxide (22-29) mmol/L Anion Gap (12-20) BUN (9-16) mg/dL Creatinine (0.5-1.4) mg/dL Estim Creat Clear Calc Estimated GFR Random Glucose (60-115) mg/dL Calcium (8.4-10.2) mg/dL Magnesium (1.6-2.6) mg/dL Total Bilirubin (0.0-1.0) mg/dL AST (5-31) U/L ALT (0-31) U/L Alkaline Phosphatase (39-117) U/L Troponin I High Sens (<3.5-17.0) ng/L Total Protein (6.5-8.0) g/dL Albumin (3.5-5.0) g/dL Lipase (8-78) U/L Ethyl Alcohol mg/dL COVID-19 ([facility]) Negative (Negative) COVID-19 Clin Com See Note Independent Interpretation I performed an independent interpretation of an: EKG Interpretation: Vent. Rate: 068 BPM ? ? Atrial Rate: 068 BPM P-R Int: 136 ms? QRS Dur: 076 ms QT Int: 422 ms ? ? ? P-R-T Axes: 059 069 065 degrees QTc Int: 448 ms ? Normal sinus rhythm Possible Left atrial enlargement Minimal voltage criteria for LVH, may be normal variant ( Sokolow-Justin ) Borderline ECG No previous ECGs available ? Electronically Signed By:Ruperto Krishna Dictated By: Ruperto Krishna MD Signed By: Electronically signed by Ruperto Krishna MD 02/16/23 1456 Chronic Conditions Patient?s care impacted by: Other (alcohol abuse) Social Determinants Patient?s care significantly limited by Social Determinants of Health including: Other Social Determinant of Health (alcohol abuse) Discharge Plan Discharge Clinical Impression: Abdominal pain Patient Disposition: Elopement Prescriptions: No Action ibuprofen 800 mg tablet 800 mg PO Q8H PRN (Reason: for pain) Qty: 90 0RF loratadine [Allergy Relief (loratadine)] 10 mg tablet 10 mg PO DAILY PRN (Reason: allergy symptoms) 90 Days Qty: 90 3RF pantoprazole 40 mg tablet,delayed release (DR/EC) 40 mg PO DAILY 30 Days Qty: 30 3RF bisacodyl [Dulcolax (bisacodyl)] 5 mg tablet,delayed release (DR/EC) 10 mg PO ONCE 1 Days Qty: 2 0RF Rx Instructions: Take 2 tablets by mouth at 12:00pm the day before your procedure. polyethylene glycol 3350 [Miralax] 17 gram/dose powder 238 g PO ONCE 1 Days Qty: 238 0RF Rx Instructions: Take as directed by mouth the day before your procedure. Citrucel 500 mg tablet 500 mg PO BID Qty: 60 5RF pantoprazole 20 mg tablet,delayed release (DR/EC) 40 mg PO ONCE 30 Days Qty: 60 6RF lamotrigine 150 mg tablet 150 mg PO DAILY Qty: 30 6RF buprenorphine-naloxone [Suboxone] 8-2 mg film 2 film sublingual DAILY Qty: 60 0RF Discharge Date/Time: 02/15/23 23:05
[2023-02-15 18:31] VITALS: BP 172/78; PULSE 74; RESP 16; TEMP 36.2; O2SAT 98
--- NOTE | 2023-02-15 18:32 | ECG_ITS ---
Test Reason : ABD PAIN Blood Pressure : / mmHG Vent. Rate : 068 BPM Atrial Rate : 068 BPM P-R Int : 136 ms QRS Dur : 076 ms QT Int : 422 ms P-R-T Axes : 059 069 065 degrees QTc Int : 448 ms Normal sinus rhythm Possible Left atrial enlargement Minimal voltage criteria for LVH, may be normal variant ( Sokolow-Justin ) Borderline ECG No previous ECGs available Referred By: Sharon Johnson Electronically Signed By:Ruperto Krishna
[2023-02-15 19:41] LABS: MANUAL DIFF FLAG NO
[2023-02-15 19:42] LABS: Basophils Percent Auto 0.4 % (0-2); Eosinophils Absolute Auto 0.2 X10*3/uL (0.0-0.4); Hematocrit 35.8 % (37.0-47.0); Hemoglobin 11.3 g/dl (12.0-16.0); Imm Gran Abs Auto 0.01 X10*3/uL (0.00-0.03); Imm Gran Pct Auto 0.2 % (0.0-0.4); Lymphocytes Absolute Auto 1.2 X10*3/uL (1.2-4.9); Lymphocytes Percent Auto 22.3 % (20-40); Mean Corpuscular HGB Conc 31.6 g/dl (31.0-35.0); Mean Corpuscular Hemoglobin 25.9 pg (27.0-33.0); Mean Corpuscular Volume 81.9 fL (80.0-98.0); Mean Platelet Volume 8.7 fL (9.4-12.3); Monocytes Absolute Auto 0.5 X10*3/uL (0.1-1.2); Monocytes Percent Auto 9.5 % (2-11); Neutrophils Absolute Auto 3.4 x10*3/uL (2.0-8.3); Neutrophils Percent Auto 64.6 % (45-73); Platelet Count 359 X10*3/uL (160-400); Red Blood Count 4.37 X10*6/uL (4.20-5.50); Red Cell Distribution Width 17.2 % (11.0-16.0); White Blood Count 5.3 X10*3/uL (4.8-10.8)
[2023-02-15 19:57] LABS: COVID-19 Test Negative (Negative); IDNOW Serial# 08D9AD1C
[2023-02-15 20:02] LABS: Alanine Aminotransferase 16 U/L (0-31); Albumin Level 4.1 g/dL (3.5-5.0); Alkaline Phosphatase 92 U/L (39-117); Anion Gap 11 (12-20); Aspartate Amino Transferase 20 U/L (5-31); Bilirubin Total 0.4 mg/dL (0.0-1.0); Blood Urea Nitrogen 11 mg/dL (9-16); Carbon Dioxide 24 mmol/L (22-29); Chloride 109 mmol/L (96-108); Creatinine Clr Calc Pharmacy 58.8; Estimated Glomerular Filt Rate > 60; Ethanol < 10 mg/dL; Glucose Random 107 mg/dL (60-115); Lipase 15 U/L (8-78); Magnesium 1.9 mg/dL (1.6-2.6); Potassium 4.4 mmol/L (3.3-5.1); Sodium 140 mmol/L (135-145); Total Protein 7.2 g/dL (6.5-8.0)
== END 2023-02-15 23:05 | disposition left against medical advice (07) ==
PROVIDERS: Physician Assistant Medical; Emergency Provider Emergency Medicine; PCP Internal Medicine
DX: R10.9 Unspecified abdominal pain (principal); Z20.822 Contact with and (suspected) exposure to COVID-19; F11.20 Opioid dependence, uncomplicated; F10.10 Alcohol abuse, uncomplicated; Y90.0 Blood alcohol level of less than 20 mg/100 ml; Z79.899 Other long term (current) drug therapy
CPT/HCPCS: 80053; 80307; 83690; 83735; 84484; 85025; 87635; 93005; 99283

== ENCOUNTER → 2023-02-15 18:32 | Outpatient (BNV) | payer OTHER, SELFPAY | PROVIDERS: Emergency Provider Emergency Medicine; PCP Internal Medicine; Visit Provider Internal Medicine Cardiovascular Disease | DX: R11.2 Nausea with vomiting, unspecified (principal); R10.9 Unspecified abdominal pain | CPT/HCPCS: 93010 ==

== ENCOUNTER 2023-02-17 15:14 | Outpatient (AMB) | payer OTHER, SELFPAY ==
--- NOTE | 2023-02-17 15:20 | MHC.OFFVIS ---
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: No Allergies alprazolam [From XANAX] Allergy (Unknown, Verified 02/17/23 15:34) SEIZURE tramadol Allergy (Unknown, Verified 02/17/23 15:34) Unknown Cymbalta Allergy (Unknown, Uncoded 02/17/23 15:34) headaches Gabapentin Allergy (Unknown, Uncoded 02/17/23 15:34) abdominal pains Do you need a note to return to daycare/school/sports/work: No HPI mat visit HPI Details Patient presents for follow up Currently prescribed suboxone 8mg BID Continues to do well with recovery Had mammogram and repots results were negative--she is still concerned however and will be following up with provider [facility] Medical History (Updated 02/15/23 @ 18:31 by SHASHI Garza) Abdominal pain Allergic rhinitis Bilateral lower extremity pain Depression Diarrhea Fatigue History of breast cancer History of opioid use Lumbar degenerative disc disease Lump of right breast Myalgia Nausea Nausea & vomiting Opioid use disorder, moderate, dependence Osteopenia Paresthesia of bilateral legs Poor historian Sinusitis Surgical History History of lumpectomy of both breasts Hx of tonsillectomy Family History Father Hypertension Cardiovascular disease Stroke Mother Hypertension Stroke Cardiovascular disease Sister Breast cancer Maternal Aunt Breast cancer Other Mental health problem Substance abuse Social History Housing: House Alcohol intake: current Alcohol intake frequency: 0-2 drinks per day Patient Tobacco Use Status: Never used Tobacco e-Cigarette/Vaping Use: Never Used Second Hand Smoke Exposure: Yes service: No Current occupational status: employed Cognitive needs: No Hearing needs: No Vision needs: No Review of Systems Const Reports as per HPI and Reports no additional complaints Physical Exam Vital Signs: Last Vital Signs Pulse 84 02/17/23 15:33 BP 128/82 02/17/23 15:33 Pulse Ox 96 02/17/23 15:33 Oxygen Delivery Method Room Air 02/17/23 15:33 Const General: cooperative, no acute distress and alert Nutritional Appearance: average body habitus Orientation/consciousness: patient oriented x3 Limitations: no limitations Neuro General: patient oriented x3 Psych Appearance: grossly normal Mental Status: mental status grossly normal Speech and movement: Normal speech and movement present Affect: normal affect Attitude: cooperative Thought process: Normal thought process present Thought content: Normal thought content present Insight: Good insight present (Psych) Judgement: Good judgement present (Psych) Assessment & Plan Assessment & Plan (1) Opioid use disorder, moderate, dependence: Code(s): F11.20 - Opioid dependence, uncomplicated Plan: Continue Suboxone at current dose Follow-up 4 weeks Encouraged patient to call office with any questions or concerns prior to next appointment. Medications: Refilled buprenorphine-naloxone 8-2 mg (Suboxone) 2 film sublingual DAILY 60 ea 0RF Coding Level of Care Code Est Pt Level 3 (41058) Diagnoses Opioid use disorder, moderate, dependence F11.20
[2023-02-17 15:33] VITALS: BP 128/82; PULSE 84; O2SAT 96
== END 2023-02-17 15:58 | disposition home or self-care (01) ==
LOC: HO.HCC 15:14
PROVIDERS: PCP Internal Medicine; Visit Provider Nurse Practitioner Psychiatric/Mental Health
DX: F11.20 Opioid dependence, uncomplicated (principal)
CPT/HCPCS: 99213

== ENCOUNTER → 2023-02-17 15:14 | Outpatient (BNVA) | payer OTHER, SELFPAY | PROVIDERS: PCP Internal Medicine; Visit Provider Nurse Practitioner Psychiatric/Mental Health | DX: F11.20 Opioid dependence, uncomplicated (principal); F32.9 Major depressive disorder, single episode, unspecified; Z51.81 Encounter for therapeutic drug level monitoring ==

== ENCOUNTER 2023-03-24 15:14 | Outpatient (AMB) | payer OTHER, SELFPAY ==
--- NOTE | 2023-03-24 15:20 | A.OFFVIS_ITS ---
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 Allergies alprazolam [From XANAX] Allergy (Unknown, Verified 03/24/23 15:21) SEIZURE tramadol Allergy (Unknown, Verified 03/24/23 15:21) Unknown Cymbalta Allergy (Unknown, Uncoded 03/24/23 15:21) headaches Gabapentin Allergy (Unknown, Uncoded 03/24/23 15:21) abdominal pains Do you need a note to return to daycare/school/sports/work: No HPI MAT Visit HPI0 Details Pt presents for OUD treatment follow up Currently being prescribed Suboxone 16mg daily Denies any side effects related to medication No questions or concerns at this time [facility] Medical History Abdominal pain Allergic rhinitis Bilateral lower extremity pain Depression Diarrhea Fatigue History of breast cancer History of opioid use Lumbar degenerative disc disease Lump of right breast Myalgia Nausea Nausea & vomiting Opioid use disorder, moderate, dependence Osteopenia Paresthesia of bilateral legs Poor historian Sinusitis Surgical History History of lumpectomy of both breasts Hx of tonsillectomy Family History Father Hypertension Cardiovascular disease Stroke Mother Hypertension Stroke Cardiovascular disease Sister Breast cancer Maternal Aunt Breast cancer Other Mental health problem Substance abuse Social History Housing: House Alcohol intake: current Alcohol intake frequency: 0-2 drinks per day Patient Tobacco Use Status: Never used Tobacco e-Cigarette/Vaping Use: Never Used Second Hand Smoke Exposure: Yes service: No Current occupational status: employed Cognitive needs: No Hearing needs: No Vision needs: No Review of Systems Const Reports as per HPI and Reports no additional complaints Physical Exam Vital Signs: Last Vital Signs Pulse 80 03/24/23 15:34 BP 110/72 03/24/23 15:34 Pulse Ox 96 03/24/23 15:34 Oxygen Delivery Method Room Air 03/24/23 15:34 Const General: cooperative, no acute distress and alert Nutritional Appearance: average body habitus Orientation/consciousness: patient oriented x3 Limitations: no limitations Neuro General: patient oriented x3 Psych Appearance: grossly normal Mental Status: mental status grossly normal Speech and movement: Normal speech and movement present Affect: normal affect Attitude: cooperative Thought process: Normal thought process present Thought content: Normal thought content present Insight: Good insight present (Psych) Judgement: Good judgement present (Psych) Assessment & Plan Assessment & Plan (1) Opioid use disorder, moderate, dependence: Code(s): F11.20 - Opioid dependence, uncomplicated Plan: * Continue Suboxone at current dose * Follow-up 8 weeks * Encouraged patient to call office with any questions or concerns prior to next appointment. Medications: Refilled buprenorphine-naloxone 8-2 mg (Suboxone) 2 film sublingual DAILY 60 ea 1RF buprenorphine-naloxone 8-2 mg (Suboxone) 2 film sublingual DAILY 60 ea 0RF Coding Level of Care Code Est Pt Level 3 (69154) Diagnoses Opioid use disorder, moderate, dependence F11.20
[2023-03-24 15:34] VITALS: BP 110/72; PULSE 80; O2SAT 96
== END 2023-03-24 16:13 | disposition home or self-care (01) ==
LOC: HO.HCC 15:14
PROVIDERS: PCP Internal Medicine; Visit Provider Nurse Practitioner Psychiatric/Mental Health
DX: F11.20 Opioid dependence, uncomplicated (principal)
CPT/HCPCS: 99213

== ENCOUNTER → 2023-03-24 15:14 | Outpatient (BNVA) | payer OTHER, SELFPAY | PROVIDERS: PCP Internal Medicine; Visit Provider Nurse Practitioner Psychiatric/Mental Health ==

== ENCOUNTER 2023-04-27 12:44 | Outpatient (AMB) | payer OTHER, SELFPAY ==
[2023-04-27 13:04] VITALS: BP 118/82; PULSE 83; O2SAT 96; BMI 20.2
--- NOTE | 2023-04-27 13:04 | MHC.PC.OV ---
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 Accompanied by: Self / Same As Patient Allergies alprazolam [From XANAX] Allergy (Intermediate, Verified 05/01/24 15:54) SEIZURE tramadol Allergy (Intermediate, Verified 05/01/24 15:54) Seizure Gabapentin Allergy (Intermediate, Uncoded 05/01/24 15:54) abdominal pains Cymbalta Allergy (Mild, Uncoded 05/01/24 15:54) headaches Medication List - Last Reconciled 04/27/23 by Terence Leyva MD bisacodyl (Dulcolax (bisacodyl)) 10 mg (2 x 5 mg) PO ONCE 1 day buprenorphine-naloxone 8-2 mg (Suboxone) 2 film sublingual DAILY ibuprofen 800 mg PO Q8H PRN lamotrigine 150 mg PO DAILY loratadine (Allergy Relief (loratadine)) 10 mg PO DAILY PRN 90 days methylcellulose (laxative) (Citrucel) 500 mg PO BID pantoprazole 40 mg PO DAILY 30 days polyethylene glycol 3350 (Miralax) 238 grams PO ONCE 1 day Tobacco use date assessed: 04/27/23 Fall risk assessment: No Falls in past year Last assessed Fall Risk: 04/27/23 Dental Screening Dental Screen Date: 04/27/23 Did you have a dental visit in the last 12 months?: No Did you have a dental problem in the last 6 months where you did not have access to dental care?: No Was dental information given to patient?: No HPI annual PE HPI Details Patient comes in today for her annual physical examination She is still on Suboxone and following up with our addiction clinic here at [facility] States that she feels okay She has noticed a lump in her right breast recently and thinks that this needs to be checked out further She denies any headaches or dizziness Denies any chest pains, no shortness of breath No nausea/vomiting, no abdominal pain No change in bowel habits noted She denies any acute urinary symptoms She reports that she still struggles with chronic low back pain but it seems like Suboxone has been helping with this somewhat Also needs her Pantoprazole Rx refilled PFSH Medical History (Updated 05/02/24 @ 05:52 by Terence Leyva MD) Vitamin D deficiency History of seizure Nausea Poor historian Diarrhea Nausea & vomiting Opioid use disorder, moderate, dependence History of opioid use Abdominal pain Sinusitis Allergic rhinitis History of breast cancer Osteopenia Depression Lumbar degenerative disc disease Myalgia Fatigue Paresthesia of bilateral legs Bilateral lower extremity pain Surgical History History of esophagogastroduodenoscopy (EGD) Hx of colonoscopy Hx of hysterectomy Lump of right breast Hx of tonsillectomy History of lumpectomy of both breasts Family History Father Hypertension Cardiovascular disease Stroke Mother Hypertension Stroke Cardiovascular disease Sister Breast cancer Maternal Aunt Breast cancer Other Mental health problem Substance abuse Social History Household Members Other:: mother Housing: House Are you a primary healthcare economics consultant to a significant other at home: No Do you presently have visiting nurse or other home services: No Alcohol intake: current Alcohol intake frequency: 0-2 drinks per day Patient Tobacco Use Status: Never used Tobacco e-Cigarette/Vaping Use: Never Used Second Hand Smoke Exposure: Yes service: No Current occupational status: employed Cognitive needs: No Hearing needs: No Vision needs: No Questionnaire PHQ-9 Over the last 2 weeks, how often have you been bothered by any of the following problems? 1. Little interest or pleasure in doing things: not at all 2. Feeling down, depressed, or hopeless: not at all 3. Trouble falling or staying asleep, or sleeping too much: not at all 4. Feeling tired or having little energy: not at all 5. Poor appetite or overeating: not at all 6. Feeling bad about yourself - or that you are a failure or have let yourself or your family down: not at all 7. Trouble concentrating on things, such as reading the newspaper or watching television: not at all 8. Moving or speaking so slowly that other people could have noticed. Or the opposite - being so fidgety or restless that you have been moving around a lot more than usual: not at all 9. Thoughts that you would be better off or of hurting yourself in some way: not at all Total score: 0 Depression Screening Interpretation: Negative (is currently on Rx for depression) Depression Screening Done: Yes 12126 - PHQ-9 Billing: Yes Source: Developed by Drs. Tee Galaviz, Bee Shelley, Andrzej Herring and colleagues, with an educational william from [employer] Thrive Questionnaire Date Thrive assessed: 04/27/23 I am a: Patient What is your living situation today?: I have a steady place to live Within the past 12 months, did the food you bought not last and you didn't have the money to get more?: Never true Within the past 12 months, did you worry whether your food would run out before you got money to buy more?: Never true Do you have trouble paying for medicines?: No Do you have trouble getting transportation to medical appointments?: No Do you have trouble paying your heating and electricity bill?: No Do you have trouble taking care of your child, family member or friend?: No Do you have trouble with day-to-day activities such as bathing, preparing meals, shopping, managing finances, etc.?: No Are you currently unemployed and looking for a job?: No Are you interested in more education?: No Please select the resources that you would like help with: None Currently or been in a relationship where the following occur: no concerns reported AUDIT C Alcohol Use Questionnaire (AUDIT-C) 1. How often do you have a drink containing alcohol?: 4 or more times a week 2. How many drinks containing alcohol do you have on a typical day when you are drinking?: 1 or 2 3. How often do you have six or more drinks on one occasion?: Never Total Score: 4 Score Reviewed/Action Taken: Yes NIA-7 AMB Questionnaire NIA-7 Date NIA - 7 assessed: 04/27/23 Feeling nervous, anxious, or on edge: 0 = Not at all Not being able to stop or control worryin = Not at all Worrying too much about different things: 0 = Not at all Trouble relaxin = Not at all Being so restless that it is hard to sit still: 0 = Not at all Becoming easily annoyed or irritable: 0 = Not at all Feeling afraid as if something awful might happen: 0 = Not at all Total NIA-7 score (0-4 normal; 5-9 mild; 10-14 moderate; 15-21 severe): 0 Source: Developed by Drs. Tee Galaviz, Bee Shelley, Andrzej Herring and colleagues, with an educational william from [employer] Review of Systems Const Denies chills, Denies fatigue, Denies fever(s), Denies headache(s) and Denies malaise Eyes Denies blurry vision, Denies change in vision, Denies irritation and Denies itchy eyes ENT Denies dysphagia, Denies dizziness, Denies otalgia, Denies headache(s), Denies nasal congestion, Denies neck pain, Denies odynophagia, Denies sinus pain and Denies sore throat Card Denies chest pain, Denies rapid heart rate, Denies irregular heart rhythm, Denies palpitations and Denies dyspnea Resp Denies chest congestion, Denies cough, Denies dyspnea and Denies wheezing GI Denies abdominal pain, Denies bloating, Denies constipation, Denies dysphagia, Denies heartburn, Denies diarrhea, Denies nausea, Denies odynophagia and Denies vomiting Denies hematuria, Denies urinary frequency, Denies dysuria, Denies urinary incontinence and Denies urinary urgency Musc Reports back pain (over the lower back - chronic), Reports arthralgias (involving multiple joints), Denies joint swelling, Denies muscle weakness and Denies neck pain Skin/Breast Denies breast pain, Reports breast mass (in the right breast - noticed recently), Denies change in pigmentation, Denies lesions, Denies rash and Denies unusual bruising Neuro Denies dizziness, Denies headache(s) and Denies paresthesias Psych Denies anxiety and Denies depression Endo Denies fatigue and Denies palpitations Jesse/Lymph Denies easy bruising Aller/Immun Denies itchy eyes and Denies wheezing Physical exam (Primary Care) Vital Signs: Last Vital Signs Pulse 83 04/27/23 13:04 BP 118/82 04/27/23 13:04 Pulse Ox 96 04/27/23 13:04 Oxygen Delivery Method Room Air 04/27/23 13:04 BMI result Body Mass Index 20.2 Tobacco/Smoking Status: Tobacco use Status Tobacco use date assessed 04/27/23 04/27/23 13:10 Patient Tobacco Use Status Never used Tobacco 04/27/23 13:10 e-Cigarette/Vaping Use Never Used 04/27/23 13:10 PHQ-9: PHQ-9 Score PHQ-9: Total score 0 04/27/23 14:18 Depression Screening Interpretation: Negative (is currently on Rx for depression) Thrive Assessment: Date of Thrive Assessment Date Thrive assessed 04/27/23 04/27/23 13:10 Currently or been in a relationship where the following occur: no concerns reported Const General: no acute distress, alert and awake Orientation/consciousness: patient oriented x3 HENMT Head: Yes normocephalic and Yes atraumatic Ears: external ears normal, TM's normal bilaterally and EAC's normal General nose exam: No nasal discharge present Face and sinus: Yes normal facial exam and Yes sinuses nontender Teeth and gingiva: dentition normal Throat: Yes posterior oropharynx normal and Yes tonsils normal (no TP congestion) Eyes Eyelids: Yes eyelids normal Conjunctivae: conjunctivae normal Pupils: Equal, round and reactive pupils present EOM: EOMs intact bilaterally Neck Neck: Yes no lymphadenopathy and Yes supple Thyroid: Thyroid normal Resp Auscultation: clear to auscultation bilaterally, no rales and no wheezes Cardio Rate: regular rate Rhythm: regular rhythm Heart sounds: no murmurs GI Palpation (GI): Soft to palpation, nontender and No hepatosplenomegaly present Auscultation: normal bowel sounds General: Yes no CVA tenderness Back/Spine/Pelvis Back: no CVA tenderness Thoracic/Lumbar Spine: lumbar spinal tenderness Skin Lesions: no lesions Rashes: no rashes Neuro General: patient oriented x3, moves all extremities, no focal motor deficits and CN's II-XI intact bilaterally Cranial nerves: Yes Equal, round and reactive pupils present Cognition (Neuro): normal cognition Gait exam (Neuro): Normal gait present Extrem General: Yes no clubbing, cyanosis or edema Coding Level of Care Code Est Pt Prev Care >65y(28024) Diagnoses Annual physical exam Z00.00 Degeneration of intervertebral disc of lumbar region with discogenic back pain and lower extremity pain M51.362 Disc-related pain type: discogenic back pain and lower extremity pain Mass of upper outer quadrant of right breast N63.11 Breast mass location: upper outer quadrant Allergic rhinitis, unspecified seasonality, unspecified trigger J30.9 Allergic rhinitis trigger: unspecified Allergic rhinitis seasonality: unspecified GERD without esophagitis K21.9 Chronic constipation K59.09 Opioid use disorder, moderate, in sustained remission F11.21 Episode of recurrent major depressive disorder, unspecified depression episode severity F33.9 Depression Type: major depressive disorder Major depression recurrence: recurrent Active/Remission status: currently active Major depression episode severity: unspecified Osteoporosis screening Z13.820
== END 2023-04-27 14:23 | disposition home or self-care (01) ==
PROVIDERS: PCP Internal Medicine; Visit Provider Internal Medicine
DX: Z00.00 Encounter for general adult medical examination without abnormal findings (principal); N63.11 Unspecified lump in the right breast, upper outer quadrant; J30.9 Allergic rhinitis, unspecified; K21.9 Gastro-esophageal reflux disease without esophagitis; K59.09 Other constipation; F11.21 Opioid dependence, in remission; F33.9 Major depressive disorder, recurrent, unspecified; Z13.820 Encounter for screening for osteoporosis
CPT/HCPCS: 99499

== ENCOUNTER 2023-05-11 14:10 | Outpatient (AMB) | payer OTHER, SELFPAY ==
--- NOTE | 2023-05-11 14:17 | A.OFFVIS_ITS ---
Intake Vital Signs 05/11/23 14:20 Height 5 ft 1 in Weight 107 lb BMI 20.2 BP 140/70 H Blood Pressure Location Rt brachial Position Sitting Pulse 80 Intake Visit Reasons: Lump/ Rt breast Intake Note: Patient referred for lump on Rt breast. Hx of breast CA 21 yrs ago. Denies pain, itch, discomfort. C/o scar tissue. 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 She states it is increasing in size, becoming more symptomatic. Approximately 21 years ago, patient had a right breast cancer. She states at that time that she had seen several doctors and there was somewhat of a delay in the diagnosis of this. She eventually had a biopsy and went on to have lumpectomy, lymph node dissection, radiation therapy, and chemotherapy. She has concerns that this current process ,which has had both mammogram and ultrasound which were negative ,none the less to her is very concerning. Patient has had a left breast biopsy for benign disease in the past. Family history positive breast cancer in sister. Patient has had genetic testing which she states is negative. Chart was reviewed and patient evaluated [facility] Medical History Lump of right breast Nausea Poor historian Diarrhea Nausea & vomiting Opioid use disorder, moderate, dependence History of opioid use Abdominal pain Sinusitis Allergic rhinitis History of breast cancer Osteopenia Depression Lumbar degenerative disc disease Myalgia Fatigue Paresthesia of bilateral legs Bilateral lower extremity pain Surgical History Hx of tonsillectomy History of lumpectomy of both breasts Family History Father Hypertension Cardiovascular disease Stroke Mother Hypertension Stroke Cardiovascular disease Sister Breast cancer Maternal Aunt Breast cancer Other Mental health problem Substance abuse Social History Housing: House Alcohol intake: current Alcohol intake frequency: 0-2 drinks per day Patient Tobacco Use Status: Never used Tobacco e-Cigarette/Vaping Use: Never Used Second Hand Smoke Exposure: Yes service: No Current occupational status: employed Cognitive needs: No Hearing needs: No Vision needs: No Physical Exam Vital Signs: Last Vital Signs Pulse 80 05/11/23 14:20 BP 140/70 H 05/11/23 14:20 BMI result Body Mass Index 20.2 HEENT Other: No obvious cervical periclavicular or axillary adenopathy bilateral. Right axillary scar. Chest Other: Chest breath sounds bilaterally, HS 1 and 2. Right breast exam demonstrates an upper outer quadrant mass measuring approximately 2 x 1 cm. Patient has right jocelyn older scar from previous surgery. Although patient had radiation therapy to right breast, no obvious chronic radiation changes. Left breast soft, benign, no obvious mass discharge adenopathy Assessment & Plan Assessment & Plan (1) Lump of right breast: Comment: at the 10 o' clock position of the right breast Code(s): N63.10 - Unspecified lump in the right breast, unspecified quadrant Qualifiers: Breast mass location: upper outer quadrant Qualified Code(s): N63.11 - Unspecified lump in the right breast, upper outer quadrant Plan I discussed the patient therapeutic options which range from continued observation and follow-up sonogram in 6 months time to excision. After lengthy discussion with the patient, with her history, and this process increasing in size, she would like to undergo excision. Risks, benefits, alternatives of excision of this right breast mass were reviewed the patient and included but not limited to bleeding, infection, recurrence, numbness, pain, scarring, seroma formation and the patient wishes to proceed. All questions were answered. Arrangements will be made for this. Coding Level of Care Code New Pt Level 5 (59516) Diagnoses Mass of upper outer quadrant of right breast N63.11 Breast mass location: upper outer quadrant
[2023-05-11 14:20] VITALS: BP 140/70; PULSE 80; BMI 20.2
== END 2023-05-11 14:34 | disposition home or self-care (01) ==
PROVIDERS: PCP Internal Medicine; Referring Provider Internal Medicine; Visit Provider Surgery
DX: N63.11 Unspecified lump in the right breast, upper outer quadrant (principal)
CPT/HCPCS: 99204

== ENCOUNTER → 2023-05-11 14:10 | Outpatient (BNVA) | payer OTHER, SELFPAY | PROVIDERS: PCP Internal Medicine; Referring Provider Internal Medicine; Visit Provider Surgery ==

== ENCOUNTER 2023-05-19 15:02 | Outpatient (AMB) | payer OTHER, SELFPAY ==
[2023-05-19 15:33] VITALS: BP 132/74; PULSE 88; O2SAT 95
--- NOTE | 2023-05-19 15:33 | MHC.AM.SUB ---
Intake Vital Signs 05/19/23 15:33 BP 132/74 Blood Pressure Location Lt brachial Position Sitting Pulse 88 Pulse Source Pulse Oximeter Pulse Oximetry (%) 95 Oxygen Delivery Method Room Air Intake Visit Reasons: MAT Visit Allergies alprazolam [From XANAX] Allergy (Unknown, Verified 05/11/23 14:21) SEIZURE tramadol Allergy (Unknown, Verified 05/11/23 14:21) Unknown Cymbalta Allergy (Unknown, Uncoded 05/11/23 14:21) headaches Gabapentin Allergy (Unknown, Uncoded 05/11/23 14:21) abdominal pains HPI MAT Visit HPI Details Pt presents for DANTE treatment and follow up. Reports she has been well, keeping busy with work. States she has been working 50-60 hours a week- encouarged to make time for self-care. Has been gardening in her free time. Taking care of elderly mother with dementia. Denies concerns about suboxone side effects or dosing. [facility], LAT[facility] Medical History Lump of right breast Nausea Poor historian Diarrhea Nausea & vomiting Opioid use disorder, moderate, dependence History of opioid use Abdominal pain Sinusitis Allergic rhinitis History of breast cancer Osteopenia Depression Lumbar degenerative disc disease Myalgia Fatigue Paresthesia of bilateral legs Bilateral lower extremity pain Surgical History Hx of tonsillectomy History of lumpectomy of both breasts Family History Father Hypertension Cardiovascular disease Stroke Mother Hypertension Stroke Cardiovascular disease Sister Breast cancer Maternal Aunt Breast cancer Other Mental health problem Substance abuse Social History Housing: House Alcohol intake: current Alcohol intake frequency: 0-2 drinks per day Patient Tobacco Use Status: Never used Tobacco e-Cigarette/Vaping Use: Never Used Second Hand Smoke Exposure: Yes service: No Current occupational status: employed Cognitive needs: No Hearing needs: No Vision needs: No Review of Systems Const Reports as per HPI and Reports no additional complaints Physical Exam Const General: cooperative and no acute distress Nutritional Appearance: thin Orientation/consciousness: patient oriented x3 Resp Effort & Inspection: normal respiratory effort Skin General skin exam: no rashes or lesions noted Neuro General: patient oriented x3 Psych Appearance: grossly normal and well kempt Mental Status: mental status grossly normal Speech and movement: Normal speech and movement present Affect: normal affect Attitude: cooperative Assessment & Plan Assessment & Plan (1) Opioid use disorder, moderate, dependence: Comment: Continue suboxone- same dose. Follow up in 8 weeks. Call clinic with questions, concerns, or if she needs to be seen earlier. Code(s): F11.20 - Opioid dependence, uncomplicated Medications: Refilled buprenorphine-naloxone 8-2 mg (Suboxone) 2 film sublingual DAILY 60 ea 1RF Coding Level of Care Code Est Pt Level 3 (90783) Diagnoses Opioid use disorder, moderate, dependence F11.20
== END 2023-05-19 15:52 | disposition home or self-care (01) ==
PROVIDERS: PCP Internal Medicine; Visit Provider Nurse Practitioner Family
DX: F11.20 Opioid dependence, uncomplicated (principal)
CPT/HCPCS: 99213

== ENCOUNTER → 2023-05-19 15:02 | Outpatient (BNVA) | payer OTHER, SELFPAY | PROVIDERS: PCP Internal Medicine; Visit Provider Nurse Practitioner Family ==

== ENCOUNTER 2023-05-21 08:48 | Day surgery (SDC) | payer OTHER, SELFPAY ==
[2023-05-19 14:12] VITALS: BMI 20.2
--- NOTE | 2023-05-20 09:52 | P.CONAN_ITS ---
Documented by User: Latasha Cheng NP 05/20/23 09:53 HPI - Anesthesia Eval Consult details Narrative: 68yo F for Right Wide Local Breast Mass Excision Suboxone daily PMFSH Active Problems Active Problems: All Active Problems (Updated 05/19/23 @ 15:47 by Mahsa Loredo NP) Lymph node symptom (Acute) Annual physical exam (Acute) Colon cancer screening (Acute) Lump of right breast (Acute) Osteopenia (Acute) Opioid use disorder, moderate, dependence (Acute) Depression (Acute) Alcohol abuse (Acute) Anxiety (Acute) Allergic rhinitis (Acute) Lumbar degenerative disc disease (Acute) Myalgia (Acute) Fatigue (Acute) Paresthesia of bilateral legs (Acute) Bilateral lower extremity pain (Acute) Past Medical History Medical History History of seizure Nausea Poor historian Diarrhea Nausea & vomiting Opioid use disorder, moderate, dependence History of opioid use Abdominal pain Sinusitis Allergic rhinitis History of breast cancer Osteopenia Depression Lumbar degenerative disc disease Myalgia Fatigue Paresthesia of bilateral legs Bilateral lower extremity pain Family History Family History Father Hypertension Cardiovascular disease Stroke Mother Hypertension Stroke Cardiovascular disease Sister Breast cancer Maternal Aunt Breast cancer Other Mental health problem Substance abuse Surgical History Surgical History Hx of hysterectomy Lump of right breast Hx of tonsillectomy History of lumpectomy of both breasts Social History Social History Household Members Other:: mother Housing: House Are you a primary account executive healthcare to a significant other at home: No Do you presently have visiting nurse or other home services: No Alcohol intake: current Alcohol intake frequency: 0-2 drinks per day Patient Tobacco Use Status: Never used Tobacco e-Cigarette/Vaping Use: Never Used Second Hand Smoke Exposure: Yes Use of substances other than those prescribed or required for medical reasons: No Substance Use Type Other:: on suboxone Have you been hit, kicked, punched, or otherwise hurt by someone within the past year? If so, by whom?: No Are you DNR?: No Advance Directives: No Advance Directives Information Provided: Yes Advance Directives on File: No Recently lost weight without trying: No Nutrition Risks: No Nutritional Risk service: No Current occupational status: employed Cognitive needs: No Hearing needs: No Vision needs: No Meds Allergies Allergy/AdvReac Type Severity Reaction Status Date / Time alprazolam [From XANAX] Allergy Intermediate SEIZURE Verified 05/20/23 13:37 tramadol Allergy Intermediate Seizure Verified 05/20/23 13:37 Gabapentin Allergy Intermediate abdominal Uncoded 05/20/23 13:37 pains Cymbalta Allergy Mild headaches Uncoded 05/20/23 13:37 Exam Exam Date and Time: May 20, 2023 0952 Height,Weight and Vital Signs: Height 5 ft 1 in Weight 48.534 kg Pertinent Lab Results Pertinent Lab Results: Laboratory Tests 02/15/23 19:36 WBC 5.3 Hgb 11.3 L Hct 35.8 L Plt Count 359 Sodium 140 Potassium 4.4 Chloride 109 H Carbon Dioxide 24 BUN 11 Creatinine 0.70 Narrative Narrative: EKG 2022 Vent. Rate : 068 BPM Atrial Rate : 068 BPM P-R Int : 136 ms QRS Dur : 076 ms QT Int : 422 ms P-R-T Axes : 059 069 065 degrees QTc Int : 448 ms Normal sinus rhythm Possible Left atrial enlargement Minimal voltage criteria for LVH, may be normal variant ( Sokolow-Justin ) Borderline ECG No previous ECGs available Assessment and Plan Assessment Anesthesia Assessment: Chart Reviewed Documented by User: Enid Anderson MD 05/21/23 09:41 [facility] Active Problems Active Problems: All Active Problems (Updated 05/21/23 @ 09:28 by Enid Anderson MD) Annual physical exam (Acute) Colon cancer screening (Acute) Lump of right breast (Acute) Osteopenia (Acute) Opioid use disorder, moderate, dependence (Acute) Depression (Acute) Alcohol abuse (Acute) Anxiety (Acute) Allergic rhinitis (Acute) Lumbar degenerative disc disease (Acute) Myalgia (Acute) Fatigue (Acute) Paresthesia of bilateral legs (Acute) Bilateral lower extremity pain (Acute) On suboxone. Did not use this morning Last dose of ibuprofen yesterday Past Medical History Medical History History of seizure Nausea Poor historian Diarrhea Nausea & vomiting Opioid use disorder, moderate, dependence History of opioid use Abdominal pain Sinusitis Allergic rhinitis History of breast cancer Osteopenia Depression Lumbar degenerative disc disease Myalgia Fatigue Paresthesia of bilateral legs Bilateral lower extremity pain Family History Family History Father Hypertension Cardiovascular disease Stroke Mother Hypertension Stroke Cardiovascular disease Sister Breast cancer Maternal Aunt Breast cancer Other Mental health problem Substance abuse Family history of problems with anesthesia: No Surgical History Surgical History Hx of hysterectomy Lump of right breast Hx of tonsillectomy History of lumpectomy of both breasts History of Problems with Anesthesia: No Social History Social History Household Members Other:: mother Housing: House Are you a primary account executive healthcare to a significant other at home: No Do you presently have visiting nurse or other home services: No Alcohol intake: current Alcohol intake frequency: 0-2 drinks per day Patient Tobacco Use Status: Never used Tobacco e-Cigarette/Vaping Use: Never Used Second Hand Smoke Exposure: Yes Use of substances other than those prescribed or required for medical reasons: No Substance Use Type Other:: on suboxone Have you been hit, kicked, punched, or otherwise hurt by someone within the past year? If so, by whom?: No Are you DNR?: No Advance Directives: No Advance Directives Information Provided: Yes Advance Directives on File: No Recently lost weight without trying: No Nutrition Risks: No Nutritional Risk service: No Current occupational status: employed Cognitive needs: No Hearing needs: No Vision needs: No Meds Allergies Allergy/AdvReac Type Severity Reaction Status Date / Time alprazolam [From XANAX] Allergy Intermediate SEIZURE Verified 05/20/23 13:37 tramadol Allergy Intermediate Seizure Verified 05/20/23 13:37 Gabapentin Allergy Intermediate abdominal Uncoded 05/20/23 13:37 pains Cymbalta Allergy Mild headaches Uncoded 05/20/23 13:37 Exam Height,Weight and Vital Signs: Height 5 ft 1 in Weight 48.534 kg Vital Signs Temp Pulse Resp BP Pulse Ox O2 Del Method 05/21/23 09:12 98.0 F 77 18 154/66 H 97 Room Air Airway Mallampati Class: II TM Dist: >3cm Neck ROM: Full Denture: Upper Loose/Missing/Broken Teeth: Yes (Poor dentition bottom. Bottom front teeth broken. Some missing. Denies loose teeth) Heart: RRR + ?murmur Lungs: CTAB Assessment and Plan Assessment Anesthesia Assessment: Anesthesia Plan Discussed Final Anesthetic Review Family History of Problems with Anesthesia: No History of Problems with Anesthesia: No NPO: Yes ASA Class: III Final Preanesthetic Review: No Changes in Pt Med Stat, Meds/Allgs Chart Reviewed, Consent Obtained/Reviewed and Anes Risks/Benef Reviewed Patient Risk: Intermediate Procedure Risk: Low Assessment/Block/Sedation in SS: Assess/Block/Sedation-SS Anesthetic Plan Anesthetic Plan: GA and MAC: Disposition: Standard PACU
--- NOTE | 2023-05-20 11:27 | MHC.SHP ---
Pre-Procedural Eval Section A Date of Service: 05/20/23 The patient is an INPATIENT: No Changes since office visit: No Cold of Flu in the past 2 weeks, No New Medical Problems, No Changes in Medication and No Patient answered all questions The History & Physical has been completed within 30 days and I have reviewed it.: Yes Section B Chief Complaint: Unspecified lump in the right breast, upper outer Allergies: Allergies Allergy/AdvReac Type Severity Reaction Status Date / Time alprazolam [From XANAX] Allergy Unknown SEIZURE Verified 05/11/23 14:21 tramadol Allergy Unknown Unknown Verified 05/11/23 14:21 Cymbalta Allergy Unknown headaches Uncoded 05/11/23 14:21 Gabapentin Allergy Unknown abdominal Uncoded 05/11/23 14:21 pains Plan I have reviewed the history and physical and performed a pertinent physical examination on my patient. No changes have occurred unless specified. Time Spent With Patient Time: Total time managing care of this patient today ____ minutes.
[2023-05-21] MEDS: Lactated Ringers 1,000 ML 100 ML IVCONT (09:06)
[2023-05-21 09:12] VITALS: BP 154/66; PULSE 77; RESP 18; TEMP 36.7; O2SAT 97
--- NOTE | 2023-05-21 09:38 | PC.NURSE ---
dentures were removed. in blue cup in patient belonging bag.
--- NOTE | 2023-05-21 09:51 | HO.ANESPROP2 ---
[facility] Active Problems Active Problems: All Active Problems (Updated 05/20/23 @ 13:48 by Kirsten Casillas RN) Lymph node symptom (Acute) Annual physical exam (Acute) Colon cancer screening (Acute) Alcohol abuse (Acute) Anxiety (Acute) Lump of right breast (Acute) Osteopenia (Acute) Opioid use disorder, moderate, dependence (Acute) Depression (Acute) Allergic rhinitis (Acute) Lumbar degenerative disc disease (Acute) Myalgia (Acute) Fatigue (Acute) Paresthesia of bilateral legs (Acute) Bilateral lower extremity pain (Acute) Past Medical History Medical History History of seizure Nausea Poor historian Diarrhea Nausea & vomiting Opioid use disorder, moderate, dependence History of opioid use Abdominal pain Sinusitis Allergic rhinitis History of breast cancer Osteopenia Depression Lumbar degenerative disc disease Myalgia Fatigue Paresthesia of bilateral legs Bilateral lower extremity pain Functional capacity: independent ambulation Family History Family History Father Hypertension Cardiovascular disease Stroke Mother Hypertension Stroke Cardiovascular disease Sister Breast cancer Maternal Aunt Breast cancer Other Mental health problem Substance abuse Family history of problems with anesthesia: No Surgical History Surgical History Hx of hysterectomy Lump of right breast Hx of tonsillectomy History of lumpectomy of both breasts History of Problems with Anesthesia: No Social History Social History Household Members Other:: mother Housing: House Are you a primary healthcare consulting manager to a significant other at home: No Do you presently have visiting nurse or other home services: No Alcohol intake: current Alcohol intake frequency: 0-2 drinks per day Patient Tobacco Use Status: Never used Tobacco e-Cigarette/Vaping Use: Never Used Second Hand Smoke Exposure: Yes Use of substances other than those prescribed or required for medical reasons: No Substance Use Type Other:: on suboxone Have you been hit, kicked, punched, or otherwise hurt by someone within the past year? If so, by whom?: No Are you DNR?: No Advance Directives: No Advance Directives Information Provided: Yes Advance Directives on File: No Recently lost weight without trying: No Nutrition Risks: No Nutritional Risk service: No Current occupational status: employed Cognitive needs: No Hearing needs: No Vision needs: No Meds Allergies Allergy/AdvReac Type Severity Reaction Status Date / Time alprazolam [From XANAX] Allergy Intermediate SEIZURE Verified 05/20/23 13:37 tramadol Allergy Intermediate Seizure Verified 05/20/23 13:37 Gabapentin Allergy Intermediate abdominal Uncoded 05/20/23 13:37 pains Cymbalta Allergy Mild headaches Uncoded 05/20/23 13:37 Active Medications: Current Medications Lactated Ringer's (Lr) 1,000 mls @ 100 mls/hr IVCONT .Q10H LING Last Admin: 05/21/23 09:06 Dose: 100 mls/hr Exam Exam Date and Time: May 21, 2023 0951 Height,Weight and Vital Signs: Height 5 ft 1 in Weight 48.081 kg Last Vital Signs Temp 98.0 F 05/21/23 09:12 Pulse 77 05/21/23 09:12 Resp 18 05/21/23 09:12 BP 154/66 H 05/21/23 09:12 Pulse Ox 97 05/21/23 09:12 O2 Del Method Room Air 05/21/23 09:12 Airway Mallampati Class: II TM Dist: >3cm Neck ROM: Full Heart: RRR Lungs: CTA Assessment and Plan Assessment Anesthesia Assessment: Anesthesia Plan Discussed Final Anesthetic Review Family History of Problems with Anesthesia: No History of Problems with Anesthesia: No ASA Class: II Final Preanesthetic Review: Meds/Allgs Chart Reviewed, Consent Obtained/Reviewed and Anes Risks/Benef Reviewed Patient Risk: Low Procedure Risk: Low Anesthetic Plan Anesthetic Plan: MAC: Disposition: Standard PACU
[2023-05-21 10:29] VITALS: BP 139/77; PULSE 77; RESP 16; TEMP 36.4; O2SAT 95
[2023-05-21 10:34] VITALS: BP 149/80; PULSE 75; RESP 17; O2SAT 96
--- NOTE | 2023-05-21 10:46 | W.PM.OPN ---
Operative Note Operative Note Date of Service: 05/21/23 Narrative: Preoperative diagnosis: [] right upper outer quadrant breast mass Postop diagnosis: [] same Procedure [] wide local excision right upper outer quadrant breast mass Surgeon: [] Otto Optometrist Owner: [] Type of Anesthesia: [] mac Indication for surgery: [] symptomatic right upper outer quadrant breast mass. Patient has history of breast cancer. She is very concerned and wished to have this area excised. Preoperative workup was otherwise negative. Findings: [] Patient brought to the operating room, placed on operative table in supine position, after adequate level of MAC anesthesia was induced, the right breast was prepped and draped in usual sterile fashion and proposed incision site infiltrated with 0.5% Marcaine / 1% lidocaine.. Using a curvilinear incision in the upper outer quadrant right breast over the area in question, this carried down through skin, subcutaneous tissue, were circumferential dissection using Bovie of her right breast upper outer quadrant fullness was uneventfully performed. Specimen sent to pathology. Wound was irrigated, secured hemostasis, and closed using interrupted inverted Dermal 3-0 Vicryl sutures followed by Steri-Strips and sterile dressings. Sponge, needle, and instrument counts were reported to be correct. Patient tolerated the procedure well and emerged from anesthesia in stable condition. EBL minimal
[2023-05-21 10:49] VITALS: BP 158/78; PULSE 74; RESP 18; TEMP 36.4; O2SAT 98
== END 2023-05-21 11:10 | disposition home or self-care (01) ==
PROVIDERS: PCP Internal Medicine; Visit Provider Surgery
PROC: (CPT 19120; principal; 2023-05-21 11:50)
DX: N60.21 Fibroadenosis of right breast (principal); N60.81 Other benign mammary dysplasias of right breast; Z85.3 Personal history of malignant neoplasm of breast; Z92.21 Personal history of antineoplastic chemotherapy; Z92.3 Personal history of irradiation; M79.10 Myalgia, unspecified site; R53.83 Other fatigue; Z98.890 Other specified postprocedural states; Z80.3 Family history of malignant neoplasm of breast; F11.90 Opioid use, unspecified, uncomplicated; Z88.8 Allergy status to other drugs, medicaments and biological substances
CPT/HCPCS: 19120; 88305; J0665; J0690; J1100; J2250; J2704; J3010

== ENCOUNTER → 2023-05-21 08:48 | Outpatient (BNV) | payer OTHER, SELFPAY | PROVIDERS: PCP Internal Medicine; Visit Provider Surgery | DX: N63.11 Unspecified lump in the right breast, upper outer quadrant (principal) | CPT/HCPCS: 19301 ==

== ENCOUNTER 2023-05-31 09:43 | Outpatient (AMB) | payer OTHER, SELFPAY ==
[2023-05-31 09:49] VITALS: BP 159/91; PULSE 74
--- NOTE | 2023-05-31 09:49 | A.OFFVIS_ITS ---
Intake Vital Signs 05/31/23 09:49 Weight 106 lb BP 159/91 H Blood Pressure Location Lt brachial Position Sitting Pulse 74 Intake Visit Reasons: S/P WLE Rt breast mass Intake Note: Patient here s/p WLE Rt breast mass. Rt breast bx on 05-21-23. Reports incision healing well. County Extension Agent Required: No Accompanied by: Self / Same As Patient Allergies alprazolam [From XANAX] Allergy (Intermediate, Verified 05/31/23 09:50) SEIZURE tramadol Allergy (Intermediate, Verified 05/31/23 09:50) Seizure Gabapentin Allergy (Intermediate, Uncoded 05/31/23 09:50) abdominal pains Cymbalta Allergy (Mild, Uncoded 05/31/23 09:50) headaches HPI HPI Comments History of Present Illness Details Patient presents for follow-up. She has no wound issues or complaints. Pathology is benign. [facility] Medical History History of seizure Nausea Poor historian Diarrhea Nausea & vomiting Opioid use disorder, moderate, dependence History of opioid use Abdominal pain Sinusitis Allergic rhinitis History of breast cancer Osteopenia Depression Lumbar degenerative disc disease Myalgia Fatigue Paresthesia of bilateral legs Bilateral lower extremity pain Surgical History Hx of hysterectomy Lump of right breast Hx of tonsillectomy History of lumpectomy of both breasts Family History Father Hypertension Cardiovascular disease Stroke Mother Hypertension Stroke Cardiovascular disease Sister Breast cancer Maternal Aunt Breast cancer Other Mental health problem Substance abuse Social History Household Members Other:: mother Housing: House Are you a primary wound care nurse to a significant other at home: No Do you presently have visiting nurse or other home services: No Alcohol intake: current Alcohol intake frequency: 0-2 drinks per day Patient Tobacco Use Status: Never used Tobacco e-Cigarette/Vaping Use: Never Used Second Hand Smoke Exposure: Yes service: No Current occupational status: employed Cognitive needs: No Hearing needs: No Vision needs: No Physical Exam Vital Signs: Last Vital Signs Pulse 74 05/31/23 09:49 BP 159/91 H 1120/23 09:49 Chest Other: Incision clean dry and intact healing very well. Assessment & Plan Assessment & Plan (1) Lump of right breast: Comment: at the 10 o' clock position of the right breast Code(s): N63.10 - Unspecified lump in the right breast, unspecified quadrant Qualifiers: Breast mass location: upper outer quadrant Qualified Code(s): N63.11 - Unspecified lump in the right breast, upper outer quadrant Plan Patient is scheduled for follow-up screening mammograms in the spring. We will see her after those studies or p.r.n.. She is encouraged to do self-breast exams. Coding Level of Care Code Global (93607) Diagnoses Mass of upper outer quadrant of right breast N63.11 Breast mass location: upper outer quadrant
== END 2023-05-31 09:54 | disposition home or self-care (01) ==
PROVIDERS: PCP Internal Medicine; Visit Provider Surgery
DX: N63.11 Unspecified lump in the right breast, upper outer quadrant (principal)
CPT/HCPCS: 99024

== ENCOUNTER → 2023-05-31 09:43 | Outpatient (BNVA) | payer OTHER, SELFPAY | PROVIDERS: PCP Internal Medicine; Visit Provider Surgery ==

== ENCOUNTER 2023-07-14 14:58 | Outpatient (AMB) | payer OTHER, SELFPAY ==
--- NOTE | 2023-07-14 15:01 | MHC.AM.SUB ---
Intake Vital Signs 07/14/23 15:15 BP 128/70 Blood Pressure Location Lt radial Position Sitting Pulse 82 Pulse Source Pulse Oximeter Pulse Oximetry (%) 96 Oxygen Delivery Method Room Air Intake Visit Reasons: MAT Visit Intake Note: the patient presents for a mat visit Demo Specialist Required: No Allergies alprazolam [From XANAX] Allergy (Intermediate, Verified 07/14/23 15:16) SEIZURE tramadol Allergy (Intermediate, Verified 07/14/23 15:16) Seizure Gabapentin Allergy (Intermediate, Uncoded 07/14/23 15:16) abdominal pains Cymbalta Allergy (Mild, Uncoded 07/14/23 15:16) headaches Do you need a note to return to daycare/school/sports/work: No HPI MAT Visit HPI Details Patient presents for DANTE treatment and follow up She expresses today that she has been having a difficult time with her mother as of late. Her mother has dementia and has been getting progressively meaner towards the patient. She reports that her sisters have been less than helpful with caring for her mother. She has been drinking a beer-oly almost nightly. She feels as though this is more than usual due to increased stressors and back pain. T/w encouraged her to try and split her second dose of the day so she would be taking 8-4-4 to space it out for better pain control. She has no other concerns today [facility] Medical History History of seizure Nausea Poor historian Diarrhea Nausea & vomiting Opioid use disorder, moderate, dependence History of opioid use Abdominal pain Sinusitis Allergic rhinitis History of breast cancer Osteopenia Depression Lumbar degenerative disc disease Myalgia Fatigue Paresthesia of bilateral legs Bilateral lower extremity pain Surgical History Hx of hysterectomy Lump of right breast Hx of tonsillectomy History of lumpectomy of both breasts Family History Father Hypertension Cardiovascular disease Stroke Mother Hypertension Stroke Cardiovascular disease Sister Breast cancer Maternal Aunt Breast cancer Other Mental health problem Substance abuse Social History Household Members Other:: mother Housing: House Are you a primary pharmacist critical care to a significant other at home: No Do you presently have visiting nurse or other home services: No Alcohol intake: current Alcohol intake frequency: 0-2 drinks per day Patient Tobacco Use Status: Never used Tobacco e-Cigarette/Vaping Use: Never Used Second Hand Smoke Exposure: Yes service: No Current occupational status: employed Cognitive needs: No Hearing needs: No Vision needs: No Review of Systems Const Reports as per HPI Physical Exam Vital Signs: Last Vital Signs Pulse 82 07/14/23 15:15 BP 128/70 07/14/23 15:15 Pulse Ox 96 07/14/23 15:15 Oxygen Delivery Method Room Air 07/14/23 15:15 Const General: cooperative, healthy appearing and no acute distress Resp Effort & Inspection: normal respiratory effort Skin General skin exam: no rashes or lesions noted Psych Appearance: grossly normal Mental Status: mental status grossly normal Affect: normal affect Attitude: cooperative Thought content: Normal thought content present Assessment & Plan Assessment & Plan (1) Opioid use disorder, moderate, dependence: Code(s): F11.20 - Opioid dependence, uncomplicated Plan: Continue suboxone- same dose, alter dosing schedule to 8mg in am, 4mg early afternoon, 4mg evening. She is to follow up with office by phone Wednesday to provide feedback. Follow up in 8 weeks. Call clinic with questions, concerns, or if she needs to be seen earlier. Medications: Refilled buprenorphine-naloxone 8-2 mg (Suboxone) 2 film sublingual DAILY 60 ea 1RF Coding Level of Care Code Est Pt Level 3 (16743) Diagnoses Opioid use disorder, moderate, dependence F11.20
[2023-07-14 15:15] VITALS: BP 128/70; PULSE 82; O2SAT 96
== END 2023-07-14 15:43 | disposition home or self-care (01) ==
PROVIDERS: PCP Internal Medicine; Visit Provider Nurse Practitioner Family
DX: F11.20 Opioid dependence, uncomplicated (principal)
CPT/HCPCS: 99213

== ENCOUNTER → 2023-07-14 14:58 | Outpatient (BNVA) | payer OTHER, SELFPAY | PROVIDERS: PCP Internal Medicine; Visit Provider Nurse Practitioner Family | DX: F11.20 Opioid dependence, uncomplicated (principal) ==

== ENCOUNTER 2023-07-22 11:26 | Outpatient (AMB) | payer OTHER, SELFPAY ==
--- NOTE | 2023-07-22 11:30 | A.OFFVIS_ITS ---
Intake Vital Signs 07/22/23 11:32 Height 5 ft 1 in Weight 108 lb 0.424 oz BMI 20.4 BP 148/66 H Blood Pressure Location Lt brachial Position Sitting Pulse 98 Intake Visit Reasons: Abdominal pain Intake Note: Ivis presents in the office as a follow up for abdominal pains. CC: She states she is upset because she was told that she is having issues because she was drinking. Allergies alprazolam [From XANAX] Allergy (Intermediate, Verified 07/22/23 11:32) SEIZURE tramadol Allergy (Intermediate, Verified 07/22/23 11:32) Seizure Gabapentin Allergy (Intermediate, Uncoded 07/22/23 11:32) abdominal pains Cymbalta Allergy (Mild, Uncoded 07/22/23 11:32) headaches Medication List - Last Reconciled 07/22/23 by Magali Segovia PA-C buprenorphine-naloxone 8-2 mg (Suboxone) 2 film sublingual DAILY ibuprofen 800 mg PO Q8H PRN lamotrigine 150 mg PO DAILY pantoprazole 40 mg PO DAILY 90 days HPI HPI Comments History of Present Illness Details A 68-year-old female seen last September with chronic abdominal pain nausea and alternating stool pattern. She was scheduled for EGD colonoscopy Intermittent epigastric pain- appetite not great-extremely anxious due to her living situation Started pantoprazole 40 in April- has been somewhat helpful- Episodes of wandering pain- sometimes wakens her at night- she has very irregular bowel pattern- since childhood she has difficulties with caring for her mother- very stressful- she admits to depression- not S/H- does not see psycho- No nausea, vomiting hematemesis, hematochezia fever or chills PFSH Medical History (Updated 07/22/23 @ 13:55 by Magali Segovia PA-C) History of seizure Nausea Poor historian Diarrhea Nausea & vomiting Opioid use disorder, moderate, dependence History of opioid use Abdominal pain Sinusitis Allergic rhinitis History of breast cancer Osteopenia Depression Lumbar degenerative disc disease Myalgia Fatigue Paresthesia of bilateral legs Bilateral lower extremity pain Surgical History Hx of colonoscopy Hx of hysterectomy Lump of right breast Hx of tonsillectomy History of lumpectomy of both breasts Family History Father Hypertension Cardiovascular disease Stroke Mother Hypertension Stroke Cardiovascular disease Sister Breast cancer Maternal Aunt Breast cancer Other Mental health problem Substance abuse Social History Household Members Other:: mother Housing: House Are you a primary client care manager to a significant other at home: No Do you presently have visiting nurse or other home services: No Alcohol intake: current Alcohol intake frequency: 0-2 drinks per day Patient Tobacco Use Status: Never used Tobacco e-Cigarette/Vaping Use: Never Used Second Hand Smoke Exposure: Yes service: No Current occupational status: employed Cognitive needs: No Hearing needs: No Vision needs: No Review of Systems Const All systems reviewed & are unremarkable except as noted in HPI and below Card Denies chest pain and Denies dyspnea Resp Denies dyspnea GI Reports abdominal pain, Denies hematochezia, Reports heartburn, Reports nausea and Denies vomiting Psych Reports anxiety, Reports depression, Denies homicidal ideation and Denies suicidal ideation Physical Exam Vital Signs: Last Vital Signs Pulse 98 07/22/23 11:32 BP 148/66 H 07/22/23 11:32 BMI result Body Mass Index 20.4 Const General: anxious Orientation/consciousness: patient oriented x3 Limitations: no limitations Eyes Sclerae: sclerae normal Resp Effort & Inspection: normal respiratory effort and able to speak in complete sentences Auscultation: clear to auscultation bilaterally, no rales, no rhonchi and no wheezes Cardio Rate: regular rate Rhythm: regular rhythm Heart sounds: S1 normal heart sound present and S2 normal heart sound present GI Palpation (GI): Soft to palpation and nontender Auscultation: normal bowel sounds Skin General skin exam: no rashes or lesions noted Neuro General: patient oriented x3 Extrem General: Yes full ROM Psych Speech and movement: Clear speech present and Pressured speech present Affect: Labile affect present and Sad affect present Attitude: Guarded attititude/behavior present Thought process: Circumstantial thought process present Thought content: suicidality and no homicidality Results Reviewed Results Reviewed: US/US abdomen complete IMPRESSION: 1. Hepatic steatosis. 2. Punctate echogenic foci in both kidneys which do not demonstrate twinkle artifact and probably represents vascular interfaces rather calculi. 3. A 2 mm large echogenic focus in the left lower pole may represent a nonobstructing calculus. Assessment & Plan Assessment & Plan (1) Chronic abdominal pain: Comment: Nonspecific, wonders-may have functional component Code(s): R10.9 - Unspecified abdominal pain; G89.29 - Other chronic pain Plan: Resubmitted for EGD colonoscopy Continue PPI (2) Chronic constipation: Code(s): K59.09 - Other constipation Plan: Consistent bowel regimen Maintain high-fiber diet (3) Acid reflux: Code(s): K21.9 - Gastro-esophageal reflux disease without esophagitis Plan: Continue PPI Reflux precaution (4) Anxiety: Comment: Expresses extreme anxiety due to living situation with her mother-she may need some type intervention helps for some change Depression, denies suicidal or homicidal ideation Her adult son lives with her as well Code(s): F41.9 - Anxiety disorder, unspecified Plan: Consider psychotherapy Plan Consider psychotherapy EGD colonoscopy MiraLax Gatorade prep Reflux precautions Avoid culprits Continue PPI Reassured Brought to schedule Orders: Orders Comprehensive Met. Panel Today K58.9 - Irritable bowel syndrome without diarrhea Complete Blood Count Auto Diff Today G89.29 - Other chronic pain, K59.09 - Other constipation, R10.9 - Unspecified abdominal pain Thyroid Stimulating Hormone Today R19.8 - Other specified symptoms and signs involving the digestive system and abdomen EGD/[facility] - GI Use Only Today G89.29 - Other chronic pain, K21.9 - Gastro- esophageal reflux disease without esophagitis, K59.09 - Other constipation, R10.9 - Unspecified abdominal pain Medications: New polyethylene glycol 3350 (Miralax) Take as directed by mouth the day before your procedure. 238 grams PO ONCE 1 day PRN 238 grams 0RF laxative effect calcium polycarbophil (Fiber Laxative (calcium polycarbophil)) 1,250 mg (2 x 625 mg) PO DAILY 30 days 60 tabs 3RF bisacodyl (Dulcolax (bisacodyl)) Day before procedure, prep day Take 4 tablets by mouth upon awakening followed by large glass of water 20 mg (4 x 5 mg) PO ONCE 1 day 4 tabs 0RF colonoscopy prep Z12.11 - Encounter for screening for malignant neoplasm of colon Patient Instructions: Consider psychotherapy-child for assistance with possible help with elder care EGD colonoscopy-discussed procedure, rare risk need for escort MiraLax Gatorade prep, reviewed, sent to 5 Reflux precautions Avoid culprits to include alcohol likely plays a role Continue PPI Reassurace Encouraged to call with questions or concerns Coding Level of Care Code Est Pt Level 4 (40097) Diagnoses Chronic abdominal pain R10.9; G89.29 Chronic constipation K59.09 Acid reflux K21.9 Anxiety F41.9 Time Spent (min) 30
[2023-07-22 11:32] VITALS: BP 148/66; PULSE 98; BMI 20.4
== END 2023-07-22 12:29 | disposition home or self-care (01) ==
PROVIDERS: PCP Internal Medicine; Visit Provider Physician Assistant
DX: R10.9 Unspecified abdominal pain (principal); G89.29 Other chronic pain; K59.09 Other constipation; K21.9 Gastro-esophageal reflux disease without esophagitis; F41.9 Anxiety disorder, unspecified
CPT/HCPCS: 99214

== ENCOUNTER → 2023-07-22 11:26 | Outpatient (BNVA) | payer OTHER, SELFPAY | PROVIDERS: PCP Internal Medicine; Visit Provider Physician Assistant ==

== ENCOUNTER 2023-09-08 16:02 | Outpatient (AMB) | payer OTHER, SELFPAY ==
--- NOTE | 2023-09-08 16:08 | A.OFFVISCC_ITS ---
Intake Vital Signs 09/08/23 16:14 BP 134/72 Blood Pressure Location Lt radial Position Sitting Pulse 85 Pulse Source Pulse Oximeter Pulse Oximetry (%) 96 Oxygen Delivery Method Room Air Intake Visit Reasons: MAT Visit Intake Note: The patient presents for a mat visit Manager Telemetry Required: No Allergies alprazolam [From XANAX] Allergy (Intermediate, Verified 09/08/23 16:21) SEIZURE tramadol Allergy (Intermediate, Verified 09/08/23 16:21) Seizure Gabapentin Allergy (Intermediate, Uncoded 09/08/23 16:21) abdominal pains Cymbalta Allergy (Mild, Uncoded 09/08/23 16:21) headaches Do you need a note to return to daycare/school/sports/work: No HPI MAT Visit HPI Details Patient presents for MAT visit Denies any concerns related to recovery at this time She is stable on current suboxone dose 8mg bid Denies any side effects related to medications She self-discontinued her lamictal a few weeks ago, reports she self tapered off of it Reports her mood has been ok Excited to start gardening for spring [facility] Medical History (Updated 07/22/23 @ 13:55 by Magali Segovia PA-C) History of seizure Nausea Poor historian Diarrhea Nausea & vomiting Opioid use disorder, moderate, dependence History of opioid use Abdominal pain Sinusitis Allergic rhinitis History of breast cancer Osteopenia Depression Lumbar degenerative disc disease Myalgia Fatigue Paresthesia of bilateral legs Bilateral lower extremity pain Surgical History Hx of colonoscopy Hx of hysterectomy Lump of right breast Hx of tonsillectomy History of lumpectomy of both breasts Family History Father Hypertension Cardiovascular disease Stroke Mother Hypertension Stroke Cardiovascular disease Sister Breast cancer Maternal Aunt Breast cancer Other Mental health problem Substance abuse Social History Household Members Other:: mother Housing: House Are you a primary healthcare business analyst to a significant other at home: No Do you presently have visiting nurse or other home services: No Alcohol intake: current Alcohol intake frequency: 0-2 drinks per day Patient Tobacco Use Status: Never used Tobacco e-Cigarette/Vaping Use: Never Used Second Hand Smoke Exposure: Yes service: No Current occupational status: employed Cognitive needs: No Hearing needs: No Vision needs: No Review of Systems Const Reports as per HPI Physical Exam Vital Signs: Last Vital Signs Pulse 85 09/08/23 16:14 BP 134/72 09/08/23 16:14 Pulse Ox 96 09/08/23 16:14 Oxygen Delivery Method Room Air 09/08/23 16:14 Const General: cooperative and no acute distress Resp Effort & Inspection: normal respiratory effort and able to speak in complete sentences Skin General skin exam: no rashes or lesions noted Psych Appearance: grossly normal Mental Status: mental status grossly normal Speech and movement: Normal speech and movement present Affect: normal affect Attitude: cooperative Thought content: Normal thought content present Assessment & Plan Assessment & Plan (1) Opioid use disorder, moderate, dependence: Code(s): F11.20 - Opioid dependence, uncomplicated Plan: -Continue suboxone same dose -Mass pat reviewed -Follow up 8 weeks Medications: Refilled buprenorphine-naloxone 8-2 mg (Suboxone) 2 film sublingual DAILY 60 ea 1RF Coding Level of Care Code Est Pt Level 3 (80899) Diagnoses Opioid use disorder, moderate, dependence F11.20
[2023-09-08 16:14] VITALS: BP 134/72; PULSE 85; O2SAT 96
== END 2023-09-08 16:34 | disposition home or self-care (01) ==
PROVIDERS: PCP Internal Medicine; Visit Provider Nurse Practitioner Family
DX: F11.20 Opioid dependence, uncomplicated (principal)
CPT/HCPCS: 99213

== ENCOUNTER → 2023-09-08 16:02 | Outpatient (BNVA) | payer OTHER, SELFPAY | PROVIDERS: PCP Internal Medicine; Visit Provider Nurse Practitioner Family | DX: F11.20 Opioid dependence, uncomplicated (principal) ==

== ENCOUNTER 2023-11-03 15:59 | Outpatient (AMB) | payer OTHER, SELFPAY ==
--- NOTE | 2023-11-03 15:58 | MHC.AM.SUB ---
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, 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, but is financially assisting a granddaughter so is unable to scale back too much No recovery concerns at this time Tolerating 16mg Suboxone daily HPI Comments Details: Patient presents for MAT visit [facility] Medical History (Updated 07/22/23 @ 13:55 by Magali Segovia PA-C) History of seizure Nausea Poor historian Diarrhea Nausea & vomiting Opioid use disorder, moderate, dependence History of opioid use Abdominal pain Sinusitis Allergic rhinitis History of breast cancer Osteopenia Depression Lumbar degenerative disc disease Myalgia Fatigue Paresthesia of bilateral legs Bilateral lower extremity pain Surgical History Hx of colonoscopy Hx of hysterectomy Lump of right breast Hx of tonsillectomy History of lumpectomy of both breasts Family History Father Hypertension Cardiovascular disease Stroke Mother Hypertension Stroke Cardiovascular disease Sister Breast cancer Maternal Aunt Breast cancer Other Mental health problem Substance abuse Social History Household Members Other:: mother Housing: House Are you a primary customer care associate to a significant other at home: No Do you presently have visiting nurse or other home services: No Alcohol intake: current Alcohol intake frequency: 0-2 drinks per day Patient Tobacco Use Status: Never used Tobacco e-Cigarette/Vaping Use: Never Used Second Hand Smoke Exposure: Yes service: No Current occupational status: employed Cognitive needs: No Hearing needs: No Vision needs: No Review of Systems Const Reports as per HPI Physical Exam Vital Signs: Last Vital Signs Pulse 79 11/03/23 15:59 BP 138/82 11/03/23 15:59 Pulse Ox 96 11/03/23 15:59 Oxygen Delivery Method Room Air 11/03/23 15:59 Const General: cooperative and no acute distress Resp Effort & Inspection: normal respiratory effort and able to speak in complete sentences Psych Appearance: grossly normal Mental Status: mental status grossly normal Speech and movement: Normal speech and movement present Affect: normal affect Attitude: cooperative Thought process: Normal thought process present Assessment & Plan Assessment & Plan (1) Opioid use disorder, moderate, dependence: Code(s): F11.20 - Opioid dependence, uncomplicated Category: Medical Plan: -SHANNON rebolledo reviewed -Suboxone refilled -Follow up 2 months Medications: Refilled buprenorphine-naloxone 8-2 mg (Suboxone) 2 film sublingual DAILY 60 ea 1RF
[2023-11-03 15:59] VITALS: BP 138/82; PULSE 79; O2SAT 96
== END 2023-11-03 16:31 | disposition home or self-care (01) ==
PROVIDERS: PCP Internal Medicine; Visit Provider Nurse Practitioner Family
DX: F11.20 Opioid dependence, uncomplicated (principal)
CPT/HCPCS: 99213

== ENCOUNTER → 2023-11-03 15:59 | Outpatient (BNVA) | payer OTHER, SELFPAY | PROVIDERS: PCP Internal Medicine; Visit Provider Nurse Practitioner Family | DX: F11.20 Opioid dependence, uncomplicated (principal) ==

== ENCOUNTER 2023-11-10 08:30 | Day surgery (SDC) | payer OTHER, SELFPAY ==
--- NOTE | 2023-11-10 09:14 | P.HPSUR_ITS ---
Pre-Procedural Eval Section A - 24 Hr Update-Section A only Date of Service: 11/10/23 Section B - Complete if H&P > 30 days Chief Complaint: Gastro-esophageal reflux disease without esophagit Details of Present Illness: abdominal pain -non specific Relevant Family History (Specify if Yes): No Relevant Social History: None Present Medications: see Short Stay Collaborative assessment Medical History: Significant History (History of seizure Nausea Poor historian Diarrhea Nausea & vomiting Opioid use disorder, moderate, dependence History of opioid use Abdominal pain Sinusitis Allergic rhinitis History of breast cancer Osteopenia Depression Lumbar degenerative disc disease Myalgia Fatigue Paresthesia of bilateral legs) History of Previous Operations: Relevant previous surgery/procedure and date(s) (Hx of hysterectomy Lump of right breast Hx of tonsillectomy History of lumpectomy of both breasts) Allergies: Allergies Allergy/AdvReac Type Severity Reaction Status Date / Time alprazolam [From XANAX] Allergy Intermediate SEIZURE Verified 11/03/23 16:02 tramadol Allergy Intermediate Seizure Verified 11/03/23 16:02 Gabapentin Allergy Intermediate abdominal Uncoded 11/03/23 16:02 pains Cymbalta Allergy Mild headaches Uncoded 11/03/23 16:02 Review of Systems Sugical H&P ROS: Negative: Constitution, Cardiovascular, Respiratory, Neurological, Psychiatric, Hem-Onc, Allergic/Immunologic, Gastrointestinal, Genitourinary, Musculoskeletal, Integumentary, Endocrine and Eyes/Ears/Nose/Throat Exam Surgical H&P Exam: Normal: HEENT, Normal: Heart, Normal: Lungs, Normal: Extr emities, Normal: Abdomen, Normal: Skin and Normal: Neurological Plan Diagnosis/Plan: Unchanged I have reviewed the history and physical and performed a pertinent physical examination on my patient. No changes have occurred unless specified. Time Spent With Patient Time: Total time managing care of this patient today ____ minutes.
[2023-11-10 09:31] VITALS: BMI 21.4
[2023-11-10 10:05] VITALS: BP 136/84; PULSE 78; RESP 16; TEMP 37.1; O2SAT 95
--- NOTE | 2023-11-10 10:05 | HO.ANESPROP2 ---
[facility] Active Problems Active Problems: All Active Problems Acid reflux (Acute) Chronic constipation (Acute) Chronic abdominal pain (Acute) Lymph node symptom (Acute) Annual physical exam (Acute) Colon cancer screening (Acute) Alcohol abuse (Acute) Anxiety (Acute) Lump of right breast (Acute) Osteopenia (Acute) Opioid use disorder, moderate, dependence (Acute) Depression (Acute) Allergic rhinitis (Acute) Lumbar degenerative disc disease (Acute) Myalgia (Acute) Fatigue (Acute) Paresthesia of bilateral legs (Acute) Bilateral lower extremity pain (Acute) Past Medical History Medical History (Updated 07/22/23 @ 13:55 by Magali Segovia PA-C) History of seizure Nausea Poor historian Diarrhea Nausea & vomiting Opioid use disorder, moderate, dependence History of opioid use Abdominal pain Sinusitis Allergic rhinitis History of breast cancer Osteopenia Depression Lumbar degenerative disc disease Myalgia Fatigue Paresthesia of bilateral legs Bilateral lower extremity pain Family History Family History Father Hypertension Cardiovascular disease Stroke Mother Hypertension Stroke Cardiovascular disease Sister Breast cancer Maternal Aunt Breast cancer Other Mental health problem Substance abuse Family history of problems with anesthesia: No Surgical History Surgical History Hx of colonoscopy Hx of hysterectomy Lump of right breast Hx of tonsillectomy History of lumpectomy of both breasts History of Problems with Anesthesia: No Social History Social History Household Members Other:: mother Housing: House Are you a primary health care recruiter to a significant other at home: No Do you presently have visiting nurse or other home services: No Alcohol intake: current Alcohol intake frequency: 0-2 drinks per day Patient Tobacco Use Status: Never used Tobacco e-Cigarette/Vaping Use: Never Used Second Hand Smoke Exposure: Yes Use of substances other than those prescribed or required for medical reasons: No Are you DNR?: No Advance Directives: No Advance Directives Information Provided: Yes service: No Current occupational status: employed Cognitive needs: No Hearing needs: No Vision needs: No Meds Allergies Allergy/AdvReac Type Severity Reaction Status Date / Time alprazolam [From XANAX] Allergy Intermediate SEIZURE Verified 11/03/23 16:02 tramadol Allergy Intermediate Seizure Verified 11/03/23 16:02 Gabapentin Allergy Intermediate abdominal Uncoded 11/03/23 16:02 pains Cymbalta Allergy Mild headaches Uncoded 11/03/23 16:02 Active Medications: Current Medications Lactated Ringer's (Lr) 1,000 mls @ 80 mls/hr IVCONT .[id number] LING Exam Height,Weight and Vital Signs: Height 5 ft 1 in Weight 51.313 kg Airway Mallampati Class: II TM Dist: >3cm Neck ROM: Full Heart: rrr Lungs: cta Assessment and Plan Assessment Anesthesia Assessment: Anesthesia Plan Discussed and Chart Reviewed Final Anesthetic Review Family History of Problems with Anesthesia: No History of Problems with Anesthesia: No NPO: Yes ASA Class: II Final Preanesthetic Review: No Changes in Pt Med Stat, Meds/Allgs Chart Reviewed and Consent Obtained/Reviewed Patient Risk: Low Procedure Risk: Low Anesthetic Plan Anesthetic Plan: MAC: Disposition: Standard PACU
[2023-11-10] MEDS: Lactated Ringers 1,000 ML 80 ML IVCONT (10:06)
--- NOTE | 2023-11-10 10:15 | P.OP_ITS ---
Operative Note Operative Note Date of Service: 11/10/23 Narrative: Operative Information Procedure Description: EGD, Colonoscopy Indication: abdominal pain Anesthesia: MAC FLEXIBLE TRANSORAL UPPER GASTROINTESTINAL ENDOSCOPY AND COLONOSCOPY PROCEDURE NOTE UPPER ENDOSCOPY Consent: Indications for the procedure and potential complications of bleeding, perforation, reaction to medications and missed diagnosis were discussed with the patient and informed consent was obtained. Instrument: Olympus GIF H 190 J mid size upper endoscope Monitoring: Vital signs and clinical assessment, continuous EKG monitoring, Pulse oximetry, Carbon Dioxide monitoring and blood pressure monitoring were done throughout the procedure. Procedure: The patient was placed in the left lateral decubitis position and pre-procedure medications were administered and a bite block was placed. The endoscope was inserted into the mouth and advanced under direct vision to the third part of duodenum. A careful inspection was made as the upper endoscope was withdrawn including a retroflexed examination of the proximal stomach; Findings and interventions are described below. Findings: Larynx:normal Esophagus: GE junction at 40 cm, diaphragm hiatus at 40 cm, bx taken from GEJ, distal and proximal esophagus Stomach: atrophic gastritis. Biopsies were obtained. Grade 2 flap valve on retroflexed examination of the cardia. The pylorus was v tight and strectched with 18 mm pyloric balloon with heme noted using wire guided technique Duodenum: Patchy erythema, bx taken Intervention: Biopsies as noted above, wire guided balloon dilation COLONOSCOPY Instrument: Olympus variable stiffness pediatric scope 190L Colonoscopy Monitoring: Vital signs and clinical assessment, continuous EKG monitoring, Pulse oximetry, Carbon Dioxide monitoring and blood pressure monitoring were done throughout the procedure. Colon withdrawal time was 12 minutes. Procedure: The patient was placed in the left lateral decubitis position and pre-procedure medications were administered. After a digital rectal examination of the ano-rectum, the video colonoscope was inserted into the rectum and advanced through the colon to the cecum/TI. The colonoscope was slowly withdrawn in a retrograde panoramic fashion and the colon mucosa was carefully examined including a retroflexed view of the rectum. Findings and interventions are described below. Procedure Difficulty:moderate Findings: Terminal Ileum-normal appearing Random colon bx taken Cecum:normal Ascending Colon: few diverticula Transverse Colon -normal Descending Colon:normal Sigmoid Colon: moderate diverticula Rectum: Retroflexion with small internal hemorrhoids, grade I Anorectum - normal Colon preparation: [place] Bowel Preparation Scale Right colon; 1-2 Transverse colon:2 Left colon; 2 (0 = Unprepared colon segment with mucosa not seen due to solid stool that cannot be cleared. 1 = Portion of mucosa of the colon segment seen, but other areas of the colon segment not well seen due to staining, residual stool and/or opaque liquid. 2 = Minor amount of residual staining, small fragments of stool and/or opaque liquid, but mucosa of colon segment seen well. 3 = Entire mucosa of colon segment seen well with no residual staining, small fragments of stool or opaque liquid) Impression and Post Procedure Diagnosis: Endoscopy Findings: pyloric stricture atrophic gastritis Colonoscopy Findings: diverticulosis internal hemorrhoids Plan: Await Pathology results Repeat Colonoscopy in 5 years due to fair right sided prep or earlier if clinically indicated High fiber diet leaflet avoid straining at stool, epsom salts and sitz bath, anusol supps or cream check PPI compliance Above findings were reviewed with the patient and relevant handouts were provided if indicated.
[2023-11-10 11:05] VITALS: BP 153/86; PULSE 85; RESP 16; TEMP 36.4; O2SAT 98
[2023-11-10 11:20] VITALS: BP 153/89; PULSE 74; RESP 18; O2SAT 98
[2023-11-10 11:35] VITALS: BP 143/85; PULSE 87; RESP 18; TEMP 36.6; O2SAT 98
== END 2023-11-10 13:09 | disposition home or self-care (01) ==
PROVIDERS: PCP Internal Medicine; Visit Provider Internal Medicine Gastroenterology
PROC: (CPT 43239; principal; 2023-11-10 10:30)
DX: R10.9 Unspecified abdominal pain (principal); G89.29 Other chronic pain; K21.9 Gastro-esophageal reflux disease without esophagitis; K31.1 Adult hypertrophic pyloric stenosis; K29.40 Chronic atrophic gastritis without bleeding; K57.30 Diverticulosis of large intestine without perforation or abscess without bleeding; K64.0 First degree hemorrhoids; Z88.5 Allergy status to narcotic agent; Z88.8 Allergy status to other drugs, medicaments and biological substances
CPT/HCPCS: 43239; 45380; 88305; 88313; 88342; J2250; J2704

== ENCOUNTER → 2023-11-10 08:30 | Outpatient (BNV) | payer OTHER, SELFPAY | PROVIDERS: PCP Internal Medicine; Visit Provider Internal Medicine Gastroenterology | DX: R10.9 Unspecified abdominal pain (principal); K31.1 Adult hypertrophic pyloric stenosis; K29.70 Gastritis, unspecified, without bleeding; K57.90 Diverticulosis of intestine, part unspecified, without perforation or abscess without bleeding; K64.0 First degree hemorrhoids | CPT/HCPCS: 43239; 43245; 45380 ==

== ENCOUNTER 2023-11-24 12:29 | Outpatient (AMB) | payer OTHER, SELFPAY ==
--- NOTE | 2023-11-24 12:33 | A.OFFVIS_ITS ---
Vital Signs 11/24/23 12:36 Height 5 ft Weight 112 lb 6.972 oz BMI 22.0 BP 121/65 Blood Pressure Location Lt brachial Position Sitting Pulse 72 Intake Visit Reasons: S/P Double: Dr. Johnson Intake Note: Ivis presents in the office as a follow up for EGD and COLO. CC: She states that she is having pains in her stomach. Allergies alprazolam [From XANAX] Allergy (Intermediate, Verified 11/24/23 12:39) SEIZURE tramadol Allergy (Intermediate, Verified 11/24/23 12:39) Seizure Gabapentin Allergy (Intermediate, Uncoded 11/24/23 12:39) abdominal pains Cymbalta Allergy (Mild, Uncoded 11/24/23 12:39) headaches Medication List - Last Reconciled 11/24/23 by Magali Segovia PA-C buprenorphine-naloxone 8-2 mg (Suboxone) 2 film sublingual DAILY calcium polycarbophil (Fiber Laxative (calcium polycarbophil)) 1,250 mg (2 x 625 mg) PO DAILY 30 days ibuprofen 800 mg PO Q8H PRN lamotrigine 150 mg PO DAILY pantoprazole 40 mg PO DAILY 90 days HPI Comments Details: A 68 y/o female f/u afer EGD and colonoscopy-she has heartburn intermittently has made dietary modifications- however she says overall she is feeling better she is able to eat without having any abdominal discomfort She does not eat much- she says since covid taste buds are off- Works fT- busy- Nausea, vomiting abdominal pain, hematemesis fever or chills PFSH Medical History History of seizure Nausea Poor historian Diarrhea Nausea & vomiting Opioid use disorder, moderate, dependence History of opioid use Abdominal pain Sinusitis Allergic rhinitis History of breast cancer Osteopenia Depression Lumbar degenerative disc disease Myalgia Fatigue Paresthesia of bilateral legs Bilateral lower extremity pain Surgical History History of esophagogastroduodenoscopy (EGD) Hx of colonoscopy Hx of hysterectomy Lump of right breast Hx of tonsillectomy History of lumpectomy of both breasts Family History Father Hypertension Cardiovascular disease Stroke Mother Hypertension Stroke Cardiovascular disease Sister Breast cancer Maternal Aunt Breast cancer Other Mental health problem Substance abuse Social History Household Members Other:: mother Housing: House Are you a primary healthcare financial analyst to a significant other at home: No Do you presently have visiting nurse or other home services: No Alcohol intake: current Alcohol intake frequency: 0-2 drinks per day Patient Tobacco Use Status: Never used Tobacco e-Cigarette/Vaping Use: Never Used Second Hand Smoke Exposure: Yes service: No Current occupational status: employed Cognitive needs: No Hearing needs: No Vision needs: No Review of Systems Const All systems reviewed & are unremarkable except as noted in HPI and below GI Reports heartburn Physical Exam Vital Signs: Last Vital Signs Pulse 72 11/24/23 12:36 BP 121/65 11/24/23 12:36 BMI result Body Mass Index 22.0 Const General: cooperative, comfortable and no acute distress Nutritional Appearance: thin Orientation/consciousness: patient oriented x3 Limitations: no limitations Resp Effort & Inspection: normal respiratory effort and able to speak in complete sentences Skin General skin exam: no rashes or lesions noted Neuro General: patient oriented x3 Extrem General: Yes full ROM Psych Appearance: grossly normal and well kempt Mental Status: mental status grossly normal Speech and movement: Normal speech and movement present Affect: normal affect Attitude: cooperative Thought process: Normal thought process present Thought content: Normal thought content present Insight: Good insight present (Psych) Judgement: Good judgement present (Psych) Results Reviewed Results Reviewed: Impression and Post Procedure Diagnosis: Endoscopy Findings: pyloric stricture atrophic gastritis Colonoscopy Findings: diverticulosis internal hemorrhoids Plan: Await Pathology results Repeat Colonoscopy in 5 years due to fair right sided prep or earlier if clinically indicated High fiber diet leaflet avoid straining at stool, epsom salts and sitz bath, anusol supps or cream check PPI compliance Above findings were reviewed with the patient and relevant handouts were provided if indicated. Name: Ivis Verde Age/Sex: 68/F Attending: Christopher Johnson MD : 1955 Submitted by: Christopher Johnson MD Copies to: Terence Leyva MD MR #: [id number] Status: [facility] Collected: 11/10/23 Location: [facility] Received: 11/10/23 Diagnosis A. Duodenum, biopsy: Duodenal mucosa within normal limits. B. Stomach, biopsy: Oxyntic mucosa with mild chronic inactive inflammation; no atrophy or Helicobacter organisms seen. C. EG junction, biopsy: - Cardiofundic-type mucosa with moderate chronic inactive inflammation; no intestinal metaplasia seen. - Squamous mucosa within normal limits. D. Esophagus, distal, biopsy: Squamous epithelium within normal limits; no inflammation seen. E. Esophagus, proximal, biopsy: Squamous epithelium within normal limits; no inflammation seen. F. Colon, random, biopsy: Colonic mucosa within normal limits. Assessment & Plan Assessment & Plan (1) Pyloric stricture: Comment: balloon dil Code(s): K31.1 - Adult hypertrophic pyloric stenosis Category: Medical (2) Atrophic gastritis: Code(s): K29.40 - Chronic atrophic gastritis without bleeding Category: Medical Plan: reviewed path (3) Diverticular disease: Code(s): K57.90 - Diverticulosis of intestine, part unspecified, without perforation or abscess without bleeding Category: Medical Plan: ER protocol foods to avoid (4) Hemorrhoids: Code(s): K64.9 - Unspecified hemorrhoids Category: Medical Plan: HFD avoid strain Plan Recall colonoscopy 5 years Diverticulosis/diverticulitis ER protocol Maintain high-fiber diet Foods to avoid Compliance with PPI Reflux precautions Medications: New famotidine Take at HS 40 mg PO DAILY 90 tabs 3RF 90 days Refilled pantoprazole 40 mg PO DAILY 90 tabs 3RF 90 days Patient Instructions: Recall colonoscopy 5 years Diverticulosis/diverticulitis ER protocol Maintain high-fiber diet Foods to avoid-to include nuts, seeds, popcorn and corn Compliance with PPI Reflux precautions reviewed Encouraged to call with any questions or concerns Coding Level of Care Code Tele New Pt Level 3 (61493) Diagnoses Pyloric stricture K31.1 Atrophic gastritis K29.40 Diverticular disease K57.90 Hemorrhoids K64.9 Time Spent (min) 30
[2023-11-24 12:36] VITALS: BP 121/65; PULSE 72; BMI 22.0
== END 2023-11-24 13:29 | disposition home or self-care (01) ==
PROVIDERS: PCP Internal Medicine; Visit Provider Physician Assistant
DX: K31.1 Adult hypertrophic pyloric stenosis (principal); K29.40 Chronic atrophic gastritis without bleeding; K57.90 Diverticulosis of intestine, part unspecified, without perforation or abscess without bleeding; K64.9 Unspecified hemorrhoids
CPT/HCPCS: 99214

== ENCOUNTER → 2023-11-24 12:29 | Outpatient (BNVA) | payer OTHER, SELFPAY | PROVIDERS: PCP Internal Medicine; Visit Provider Physician Assistant ==

== ENCOUNTER 2024-01-06 10:37 | Outpatient (AMB) | payer OTHER, SELFPAY ==
--- NOTE | 2024-01-06 10:41 | A.OFFVISCC_ITS ---
Intake Visit Reasons: MAT Visit Allergies alprazolam [From XANAX] Allergy (Intermediate, Verified 11/24/23 12:39) SEIZURE tramadol Allergy (Intermediate, Verified 11/24/23 12:39) Seizure Gabapentin Allergy (Intermediate, Uncoded 11/24/23 12:39) abdominal pains Cymbalta Allergy (Mild, Uncoded 11/24/23 12:39) headaches HPI HPI MAT Visit: Details: Patient presents for follow up Started chcf process increasing depression and anxiety --home and work Requesting medication Discussed some options and agreeable to Propranolol trial Discussed dosing, side effects and goals of treatment. Also discussed limitations to medication given that many of patient's sx are related to home and work life. [facility] Medical History (Updated 01/06/24 @ 11:06 by Lisa Kidd CNP) History of seizure Nausea Poor historian Diarrhea Nausea & vomiting Opioid use disorder, moderate, dependence History of opioid use Abdominal pain Sinusitis Allergic rhinitis History of breast cancer Osteopenia Depression Lumbar degenerative disc disease Myalgia Fatigue Paresthesia of bilateral legs Bilateral lower extremity pain Surgical History History of esophagogastroduodenoscopy (EGD) Hx of colonoscopy Hx of hysterectomy Lump of right breast Hx of tonsillectomy History of lumpectomy of both breasts Family History Father Hypertension Cardiovascular disease Stroke Mother Hypertension Stroke Cardiovascular disease Sister Breast cancer Maternal Aunt Breast cancer Other Mental health problem Substance abuse Social History Household Members Other:: mother Housing: House Are you a primary critical care paramedic to a significant other at home: No Do you presently have visiting nurse or other home services: No Alcohol intake: current Alcohol intake frequency: 0-2 drinks per day Patient Tobacco Use Status: Never used Tobacco e-Cigarette/Vaping Use: Never Used Second Hand Smoke Exposure: Yes service: No Current occupational status: employed Cognitive needs: No Hearing needs: No Vision needs: No Review of Systems Const All systems reviewed & are unremarkable except as noted in HPI and below Physical Exam Const General: cooperative and no acute distress Resp Effort & Inspection: normal respiratory effort and able to speak in complete sentences Psych Appearance: grossly normal Mental Status: mental status grossly normal Speech and movement: Normal speech and movement present Affect: normal affect Attitude: cooperative Thought process: Normal thought process present Assessment & Plan Assessment & Plan (1) Opioid use disorder, moderate, in sustained remission: Code(s): F11.21 - Opioid dependence, in remission Category: Medical Plan: * continue suboxone at current dose * follow up one month to reassess anxiety * encouraged to call office prior to next appt if needed Medications: New propranolol 10 mg PO BID PRN 30 tabs 0RF anxiety Refilled buprenorphine-naloxone 8-2 mg (Suboxone) 2 film sublingual DAILY 60 ea 1RF Discontinued lamotrigine Discontinued Reason: Patient no longer taking 150 mg PO DAILY 30 tabs 6RF
== END 2024-01-06 14:20 | disposition home or self-care (01) ==
PROVIDERS: PCP Internal Medicine; Visit Provider Nurse Practitioner Psychiatric/Mental Health
DX: F11.21 Opioid dependence, in remission (principal)
CPT/HCPCS: 99214

== ENCOUNTER → 2024-01-06 10:37 | Outpatient (BNVA) | payer OTHER, SELFPAY | PROVIDERS: PCP Internal Medicine; Visit Provider Nurse Practitioner Psychiatric/Mental Health | DX: F11.20 Opioid dependence, uncomplicated (principal) ==

== ENCOUNTER 2024-02-23 16:12 | Outpatient (AMB) | payer OTHER, SELFPAY ==
--- NOTE | 2024-02-23 16:20 | A.OFFVISCC_ITS ---
Intake Visit Reasons: MAT Visit Allergies alprazolam [From XANAX] Allergy (Intermediate, Verified 11/24/23 12:39) SEIZURE tramadol Allergy (Intermediate, Verified 11/24/23 12:39) Seizure Gabapentin Allergy (Intermediate, Uncoded 11/24/23 12:39) abdominal pains Cymbalta Allergy (Mild, Uncoded 11/24/23 12:39) headaches HPI HPI MAT Visit: Details: Patient presents for follow up started propranolol after last visit takes it in the morning before work. 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 [facility] Medical History (Updated 01/06/24 @ 11:06 by Lisa Kidd CNP) History of seizure Nausea Poor historian Diarrhea Nausea & vomiting Opioid use disorder, moderate, dependence History of opioid use Abdominal pain Sinusitis Allergic rhinitis History of breast cancer Osteopenia Depression Lumbar degenerative disc disease Myalgia Fatigue Paresthesia of bilateral legs Bilateral lower extremity pain Surgical History History of esophagogastroduodenoscopy (EGD) Hx of colonoscopy Hx of hysterectomy Lump of right breast Hx of tonsillectomy History of lumpectomy of both breasts Family History Father Hypertension Cardiovascular disease Stroke Mother Hypertension Stroke Cardiovascular disease Sister Breast cancer Maternal Aunt Breast cancer Other Mental health problem Substance abuse Social History Household Members Other:: mother Housing: House Are you a primary patient care coordinator to a significant other at home: No Do you presently have visiting nurse or other home services: No Alcohol intake: current Alcohol intake frequency: 0-2 drinks per day Patient Tobacco Use Status: Never used Tobacco e-Cigarette/Vaping Use: Never Used Second Hand Smoke Exposure: Yes service: No Current occupational status: employed Cognitive needs: No Hearing needs: No Vision needs: No Review of Systems Const Reports as per HPI Physical Exam Const General: cooperative and no acute distress Psych Appearance: grossly normal Mental Status: mental status grossly normal Speech and movement: Normal speech and movement present Affect: normal affect Attitude: cooperative Thought process: Normal thought process present Assessment & Plan Assessment & Plan (1) Opioid use disorder, moderate, in sustained remission: Code(s): F11.21 - Opioid dependence, in remission Category: Medical Plan: * continue suboxone at current dose * encouraged to not make any changes to current regimen until t/w can further research particular plant she is referring to * follow up 6 weeks
== END 2024-02-23 16:36 | disposition home or self-care (01) ==
PROVIDERS: PCP Internal Medicine; Visit Provider Nurse Practitioner Psychiatric/Mental Health
DX: F11.21 Opioid dependence, in remission (principal)
CPT/HCPCS: 99214

== ENCOUNTER → 2024-02-23 16:12 | Outpatient (BNVA) | payer OTHER, SELFPAY | PROVIDERS: PCP Internal Medicine; Visit Provider Nurse Practitioner Psychiatric/Mental Health | DX: F11.20 Opioid dependence, uncomplicated (principal); F11.21 Opioid dependence, in remission ==

== ENCOUNTER 2024-04-05 14:57 | Outpatient (AMB) | payer OTHER, SELFPAY ==
--- NOTE | 2024-04-05 15:08 | MHC.AM.SUB ---
Intake Visit Reasons: MAT Visit Allergies alprazolam [From XANAX] Allergy (Intermediate, Verified 11/24/23 12:39) SEIZURE tramadol Allergy (Intermediate, Verified 11/24/23 12:39) Seizure Gabapentin Allergy (Intermediate, Uncoded 11/24/23 12:39) abdominal pains Cymbalta Allergy (Mild, Uncoded 11/24/23 12:39) headaches HPI HPI MAT Visit: Details: Patient presents for follow up Currently prescribed Suboxone 16mg QD no issues with current dose has not started her ghost plant tinctures looked into social security and working on insurance changes COUNT INCLUDES [facility] Medical History (Updated 01/06/24 @ 11:06 by Lisa Kidd CNP) History of seizure Nausea Poor historian Diarrhea Nausea & vomiting Opioid use disorder, moderate, dependence History of opioid use Abdominal pain Sinusitis Allergic rhinitis History of breast cancer Osteopenia Depression Lumbar degenerative disc disease Myalgia Fatigue Paresthesia of bilateral legs Bilateral lower extremity pain Surgical History History of esophagogastroduodenoscopy (EGD) Hx of colonoscopy Hx of hysterectomy Lump of right breast Hx of tonsillectomy History of lumpectomy of both breasts Family History Father Hypertension Cardiovascular disease Stroke Mother Hypertension Stroke Cardiovascular disease Sister Breast cancer Maternal Aunt Breast cancer Other Mental health problem Substance abuse Social History Household Members Other:: mother Housing: House Are you a primary long term care administrator to a significant other at home: No Do you presently have visiting nurse or other home services: No Alcohol intake: current Alcohol intake frequency: 0-2 drinks per day Patient Tobacco Use Status: Never used Tobacco e-Cigarette/Vaping Use: Never Used Second Hand Smoke Exposure: Yes service: No Current occupational status: employed Cognitive needs: No Hearing needs: No Vision needs: No Review of Systems Const Reports as per HPI Physical Exam Const General: cooperative and no acute distress Psych Appearance: grossly normal Mental Status: mental status grossly normal Speech and movement: Normal speech and movement present Affect: normal affect Attitude: cooperative Thought process: Normal thought process present Assessment & Plan Assessment & Plan (1) Opioid use disorder, moderate, in sustained remission: Code(s): F11.21 - Opioid dependence, in remission Category: Medical Plan: continue suboxone at current dose follow up 2 months will call when refill is due
== END 2024-04-05 16:40 | disposition home or self-care (01) ==
PROVIDERS: PCP Internal Medicine; Visit Provider Nurse Practitioner Psychiatric/Mental Health
DX: F11.21 Opioid dependence, in remission (principal)
CPT/HCPCS: 99213

== ENCOUNTER → 2024-04-05 14:57 | Outpatient (BNVA) | payer OTHER, SELFPAY | PROVIDERS: PCP Internal Medicine; Visit Provider Nurse Practitioner Psychiatric/Mental Health | DX: F11.20 Opioid dependence, uncomplicated (principal); F11.21 Opioid dependence, in remission ==

== ENCOUNTER 2024-05-01 15:03 | Outpatient (AMB) | payer OTHER, SELFPAY ==
[2024-05-01 15:12] VITALS: BP 122/78; PULSE 71; O2SAT 97; BMI 20.9
--- NOTE | 2024-05-01 15:12 | A.OFFPC_ITS ---
Vital Signs 05/01/24 15:12 Height 5 ft Weight 107 lb 4 oz BMI 20.9 BP 122/78 Blood Pressure Location Lt brachial Position Sitting Pulse 71 Pulse Source Pulse Oximeter Pulse Oximetry (%) 97 Oxygen Delivery Method Room Air Intake Visit Reasons: Annual Exam Interpretive Program Coordinator Required: No Accompanied by: Self / Same As Patient Allergies alprazolam [From XANAX] Allergy (Intermediate, Verified 05/01/24 15:54) SEIZURE tramadol Allergy (Intermediate, Verified 05/01/24 15:54) Seizure Gabapentin Allergy (Intermediate, Uncoded 05/01/24 15:54) abdominal pains Cymbalta Allergy (Mild, Uncoded 05/01/24 15:54) headaches Medication List - Last Reconciled 05/01/24 by Terence Leyva MD buprenorphine-naloxone 8-2 mg (Suboxone) 2 film sublingual DAILY calcium polycarbophil (Fiber Laxative (calcium polycarbophil)) 1,250 mg (2 x 625 mg) PO DAILY 30 days famotidine 40 mg PO DAILY 90 days ibuprofen 800 mg PO Q8H PRN pantoprazole 40 mg PO DAILY 90 days propranolol 10 mg PO BID PRN Tobacco use date assessed: 05/01/24 Fall risk assessment: No Falls in past year Last assessed Fall Risk: 05/01/24 Dental Screening Dental Screen Date: 05/01/24 Did you have a dental visit in the last 12 months?: No Did you have a dental problem in the last 6 months where you did not have access to dental care?: No Was dental information given to patient?: Patient has dentist HPI Annual Exam HPI Details Patient comes in today for her annual physical examination - was last seen over a year ago in April 2023 She is still on Suboxone and following up with our addiction clinic here at [facility] States that she is still experiencing recurrent low back pain and wants to try going to [facility] in [place] for interventional pain management Adds that she often finds ticks on herself as [place] Relates that she recently found a tick that was deeply embedded into her skin that took her a while to remove - she is not sure how long this one was on her before she discovered it and is wondering if she should be checked out further States that she feels okay She denies any headaches or dizziness Denies any chest pains, no shortness of breath No nausea/vomiting, no abdominal pain No change in bowel habits noted She denies any acute urinary symptoms She had her screening colonoscopy most recently done back in November 2023 - was recommended to get repeat colonoscopy in 5 years She is due for her yearly mammogram as well as her repeat BMD She does not need to continue with her yearly pap smear and gynecology exam since she had a total hysterectomy done back in 2018 [facility] Medical History (Updated 05/02/24 @ 05:36 by Terence Leyva MD) Vitamin D deficiency History of seizure Nausea Poor historian Diarrhea Nausea & vomiting Opioid use disorder, moderate, dependence History of opioid use Abdominal pain Sinusitis Allergic rhinitis History of breast cancer Osteopenia Depression Lumbar degenerative disc disease Myalgia Fatigue Paresthesia of bilateral legs Bilateral lower extremity pain Surgical History History of esophagogastroduodenoscopy (EGD) Hx of colonoscopy Hx of hysterectomy Lump of right breast Hx of tonsillectomy History of lumpectomy of both breasts Family History Father Hypertension Cardiovascular disease Stroke Mother Hypertension Stroke Cardiovascular disease Sister Breast cancer Maternal Aunt Breast cancer Other Mental health problem Substance abuse Social History Household Members Other:: mother Housing: House Are you a primary client care representative to a significant other at home: No Do you presently have visiting nurse or other home services: No Alcohol intake: current Alcohol intake frequency: 0-2 drinks per day Patient Tobacco Use Status: Never used Tobacco e-Cigarette/Vaping Use: Never Used Second Hand Smoke Exposure: Yes service: No Current occupational status: employed Cognitive needs: No Hearing needs: No Vision needs: No Questionnaire PHQ-9 Over the last 2 weeks, how often have you been bothered by any of the following problems? 1. Little interest or pleasure in doing things: not at all 2. Feeling down, depressed, or hopeless: not at all 3. Trouble falling or staying asleep, or sleeping too much: not at all 4. Feeling tired or having little energy: not at all 5. Poor appetite or overeating: not at all 6. Feeling bad about yourself - or that you are a failure or have let yourself or your family down: not at all 7. Trouble concentrating on things, such as reading the newspaper or watching television: not at all 8. Moving or speaking so slowly that other people could have noticed. Or the opposite - being so fidgety or restless that you have been moving around a lot more than usual: not at all 9. Thoughts that you would be better off or of hurting yourself in some way: not at all Total score: 0 Depression Screening Interpretation: Negative Depression Screening Done: Yes [id number] - PHQ-9 Billing: Yes Source: Developed by Drs. Tee Galaviz, Bee Shelley, Andrzej Herring and colleagues, with an educational william from [employer]. Thrive Questionnaire Date Thrive assessed: 05/01/24 I am a: Parent/Caregiver What is your living situation today?: I have a steady place to live Within the past 12 months, did the food you bought not last and you didn't have the money to get more?: Never true Within the past 12 months, did you worry whether your food would run out before you got money to buy more?: Never true Do you have trouble paying for medicines?: No Do you have trouble getting transportation to medical appointments?: No Do you have trouble paying your heating and electricity bill?: No Do you have trouble taking care of your child, family member or friend?: No Do you have trouble with day-to-day activities such as bathing, preparing meals, shopping, managing finances, etc.?: No Are you currently unemployed and looking for a job?: No Are you interested in more education?: No Please select the resources that you would like help with: None Currently or been in a relationship where the following occur: I choose not to answer THRIVE Score: 0 AUDIT C Alcohol Use Questionnaire (AUDIT-C) 1. How often do you have a drink containing alcohol?: 2-4 times a month 2. How many drinks containing alcohol do you have on a typical day when you are drinking?: 1 or 2 3. How often do you have six or more drinks on one occasion?: Never Total Score: 2 Score Reviewed/Action Taken: Yes NIA-7 AMB Questionnaire NIA-7 Date NIA - 7 assessed: 05/01/24 Feeling nervous, anxious, or on edge: 3 = Nearly every day Not being able to stop or control worryin = Nearly every day Worrying too much about different things: 3 = Nearly every day Trouble relaxin = Nearly every day Being so restless that it is hard to sit still: 3 = Nearly every day Becoming easily annoyed or irritable: 2 = More than half the days Feeling afraid as if something awful might happen: 1 = Several days Total NIA-7 score (0-4 normal; 5-9 mild; 10-14 moderate; 15-21 severe): 18 Source: Developed by Drs. Tee Galaviz, Bee Shelley, Andrzej Herring and colleagues, with an educational william from [employer]. Review of Systems Const Denies chills, Denies fatigue, Denies fever(s), Denies headache(s) and Denies malaise Eyes Denies blurry vision, Denies change in vision, Denies irritation and Denies itchy eyes ENT Denies dysphagia, Denies dizziness, Denies otalgia, Denies headache(s), Denies nasal congestion, Denies neck pain, Denies odynophagia, Denies sinus pain and Denies sore throat Card Denies chest pain, Denies rapid heart rate, Denies irregular heart rhythm, Denies palpitations and Denies dyspnea Resp Denies chest congestion, Denies cough, Denies dyspnea and Denies wheezing GI Denies abdominal pain, Denies bloating, Denies constipation, Denies dysphagia, Denies heartburn, Denies diarrhea, Denies nausea, Denies odynophagia and Denies vomiting Denies hematuria, Denies urinary frequency, Denies dysuria, Denies urinary incontinence and Denies urinary urgency Musc Reports back pain (over the lower back - chronic), Reports arthralgias (involving multiple joints), Denies joint swelling, Denies muscle weakness and Denies neck pain Skin/Breast Denies breast pain, Denies breast mass, Denies change in pigmentation, Denies lesions, Denies rash and Denies unusual bruising Neuro Denies dizziness, Denies headache(s) and Denies paresthesias Psych Denies anxiety and Denies depression Endo Denies fatigue and Denies palpitations Jesse/Lymph Denies easy bruising Aller/Immun Denies itchy eyes and Denies wheezing Physical exam (Primary Care) Vital Signs: Last Vital Signs Pulse 71 05/01/24 15:12 BP 122/78 05/01/24 15:12 Pulse Ox 97 05/01/24 15:12 Oxygen Delivery Method Room Air 05/01/24 15:12 BMI result Body Mass Index 20.9 Tobacco/Smoking Status: Tobacco use Status Tobacco use date assessed 05/01/24 05/01/24 15:14 Patient Tobacco Use Status Never used Tobacco 05/01/24 15:14 e-Cigarette/Vaping Use Never Used 05/01/24 15:14 PHQ-9: PHQ-9 Score PHQ-9: Total score 0 05/01/24 15:57 Depression Screening Interpretation: Negative Thrive Assessment: Date of Thrive Assessment Date Thrive assessed 05/01/24 05/01/24 15:14 Currently or been in a relationship where the following occur: I choose not to answer Const General: no acute distress, alert and awake Orientation/consciousness: patient oriented x3 HENMT Head: Yes normocephalic and Yes atraumatic Ears: external ears normal, TM's normal bilaterally and EAC's normal General nose exam: No nasal discharge present Face and sinus: Yes normal facial exam and Yes sinuses nontender Teeth and gingiva: dentition normal Throat: Yes posterior oropharynx normal and Yes tonsils normal (no TP congestion) Eyes Eyelids: Yes eyelids normal Conjunctivae: conjunctivae normal Pupils: Equal, round and reactive pupils present EOM: EOMs intact bilaterally Neck Neck: Yes no lymphadenopathy and Yes supple Thyroid: Thyroid normal Resp Auscultation: clear to auscultation bilaterally, no rales and no wheezes Cardio Rate: regular rate Rhythm: regular rhythm Heart sounds: no murmurs GI Palpation (GI): Soft to palpation, nontender and No hepatosplenomegaly present Auscultation: normal bowel sounds General: Yes no CVA tenderness Back/Spine/Pelvis Back: no CVA tenderness Thoracic/Lumbar Spine: lumbar spinal tenderness Skin Lesions: no lesions Rashes: no rashes Neuro General: patient oriented x3, moves all extremities, no focal motor deficits and CN's II-XI intact bilaterally Cranial nerves: Yes Equal, round and reactive pupils present Cognition (Neuro): normal cognition Gait exam (Neuro): Normal gait present Extrem General: Yes no clubbing, cyanosis or edema Coding Level of Care Code Est Pt Prev Care >65y(91039) Diagnoses Annual physical exam Z00.00 Degeneration of intervertebral disc of lumbar region with discogenic back pain and lower extremity pain M51.362 Disc-related pain type: discogenic back pain and lower extremity pain Atrophic gastritis without hemorrhage K29.40 Gastritis bleeding: without bleeding Pyloric stricture K31.1 Vitamin D deficiency E55.9 Tick bite, unspecified site, sequela W57.XXXS Encounter type: sequela Site of tick bite: unspecified site Chronic constipation K59.09 Opioid use disorder, moderate, in sustained remission F11.21 Anxiety F41.9 Breast cancer screening by mammogram Z12.31 Osteoporosis screening Z13.820 Assessment & Plan Assessment & Plan (1) Annual physical exam: Code(s): Z00.00 - Encounter for general adult medical examination without abnormal findings Category: Medical Plan: Check labs She is due for her yearly mammogram and repeat BMD - these will be ordered (2) Lumbar degenerative disc disease: Code(s): M51.36 - Other intervertebral disc degeneration, lumbar region Category: Medical Qualifiers: Disc-related pain type: discogenic back pain and lower extremity pain Qualified Code(s): M51.362 - Other intervertebral disc degeneration, lumbar region with discogenic back pain and lower extremity pain Plan: Reinforced activity and weight-lifting restrictions to avoid aggravating her low back pain Continue Ibuprofen 800 mg TID PRN with food for pain Per request, will refer her to [facility] for pain management evaluation (3) Atrophic gastritis: Code(s): K29.40 - Chronic atrophic gastritis without bleeding Category: Medical Qualifiers: Gastritis bleeding: without bleeding Qualified Code(s): K29.40 - Chronic atrophic gastritis without bleeding Plan: EGD done in November 2023 revealed (+) findings of atrophic gastritis Reinforced dietary restrictions, including alcohol Continue Pantoprazole 40 mg QD and Famotidine 40 mg QD Follow up with GI as scheduled (4) Pyloric stricture: Comment: balloon dil Code(s): K31.1 - Adult hypertrophic pyloric stenosis Category: Medical Plan: This was also noted during her EGD in November 2023 and was dilated Follow up with GI as scheduled (5) Vitamin D deficiency: Code(s): E55.9 - Vitamin D deficiency, unspecified Category: Medical Plan: Patient is advised that her vitamin D level was very low (6.9) when it was last checked a year ago Will start her on Vitamin D3 2000 units QD (6) Tick bites: Code(s): W57.XXXA - Bitten or stung by nonvenomous insect and other nonvenomous arthropods, initial encounter Category: Medical Qualifiers: Encounter type: sequela Site of tick bite: unspecified site Qualified Code(s): W57.XXXS - Bitten or stung by nonvenomous insect and other nonvenomous arthropods, sequela Plan: S/P multiple tick bites, per patient, as [place] an area where Lyme disease is endemic, will send her as well for Lyme disease testing - we will then treat her accordingly depending on how her labs come out (7) Chronic constipation: Code(s): K59.09 - Other constipation Category: Medical Plan: This is most likely, in part, due to her Suboxone Rx She had a colonoscopy done recently in November 2023 - (+) internal hemorrhoids and diverticulosis; random biopsies done came out negative Continue Fiber Laxative 1250 mg QD Follow up with GI as scheduled (8) Opioid use disorder, moderate, in sustained remission: Code(s): F11.21 - Opioid dependence, in remission Category: Medical Plan: Continue Suboxone 8-2 mg 2 films subligually QD Follow up with the Suboxone clinic as scheduled (9) Anxiety: Comment: Expresses extreme anxiety due to living situation with her mother-she may need some type intervention helps for some change Depression, denies suicidal or homicidal ideation Her adult son lives with her as well Code(s): F41.9 - Anxiety disorder, unspecified Category: Medical Plan: Continue Propranolol 10 mg BID (10) Breast cancer screening by mammogram: Code(s): Z12.31 - Encounter for screening mammogram for malignant neoplasm of breast Category: Medical Plan: Will send her for her yearly mammogram (11) Osteoporosis screening: Code(s): Z13.820 - Encounter for screening for osteoporosis Category: Medical Plan: Will send patient for repeat BMD for osteoporosis screening - states that she has not had one done in years now Plan Follow up in 6 months Orders: Orders Complete Blood Count Auto Diff 05/01/24 D64.9 - Anemia, unspecified, Z00.00 - Encounter for general adult medical examination without abnormal findings Comprehensive [place]. Panel Fast 05/01/24 E78.00 - Pure hypercholesterolemia, unspecified, Z00.00 - Encounter for general adult medical examination without abnormal findings Lyme IgG/IgM w/reflex to WB 05/01/24 W57.XXXA - Bitten or stung by nonvenomous insect and other nonvenomous arthropods, initial encounter TSH reflex Free T4 05/01/24 E78.00 - Pure hypercholesterolemia, unspecified, Z00.00 - Encounter for general adult medical examination without abnormal findings Vitamin B12 and Folate 05/01/24 E53.8 - Deficiency of other specified B group vitamins, Z00.00 - Encounter for general adult medical examination without abnormal findings Vitamin D 25-OH Total 05/01/24 E55.9 - Vitamin D deficiency, unspecified, Z00.00 - Encounter for general adult medical examination without abnormal findings XR DEXA axial skeleton 05/01/24 Z78.0 - Asymptomatic menopausal state MM tomosynthesis screening BI 05/01/24 Z12.31 - Encounter for screening mammogram for malignant neoplasm of breast Lipid Panel 05/01/24 E78.00 - Pure hypercholesterolemia, unspecified, Z00.00 - Encounter for general adult medical examination without abnormal findings UA CC w/rflx Micro + Cult 05/01/24 R30.0 - Dysuria, Z00.00 - Encounter for general adult medical examination without abnormal findings Referrals Pain Management Referral M51.36 - Other intervertebral disc degeneration, lumbar region, M54.50 - Low back pain, unspecified Medications: New cholecalciferol (vitamin D3) 50 mcg PO DAILY 90 days 90 caps 3RF E55.9 - Vitamin D deficiency, unspecified
== END 2024-05-01 16:06 | disposition home or self-care (01) ==
PROVIDERS: PCP Internal Medicine; Visit Provider Internal Medicine
DX: Z00.00 Encounter for general adult medical examination without abnormal findings (principal); F11.21 Opioid dependence, in remission; M51.362 Other intervertebral disc degeneration, lumbar region with discogenic back pain and lower extremity pain; K29.40 Chronic atrophic gastritis without bleeding; K31.1 Adult hypertrophic pyloric stenosis; E55.9 Vitamin D deficiency, unspecified; W57.XXXS Bitten or stung by nonvenomous insect and other nonvenomous arthropods, sequela; K59.09 Other constipation; F41.9 Anxiety disorder, unspecified; Z12.31 Encounter for screening mammogram for malignant neoplasm of breast; Z13.820 Encounter for screening for osteoporosis

== ENCOUNTER → 2024-05-01 15:03 | Outpatient (BNVA) | payer OTHER, SELFPAY | PROVIDERS: PCP Internal Medicine; Visit Provider Internal Medicine ==

== ENCOUNTER 2024-05-31 15:35 | Outpatient (AMB) | payer OTHER, SELFPAY ==
--- NOTE | 2024-05-31 15:44 | A.OFFVISCC_ITS ---
Intake Visit Reasons: MAT Visit Allergies alprazolam [From XANAX] Allergy (Intermediate, Verified 05/01/24 15:54) SEIZURE tramadol Allergy (Intermediate, Verified 05/01/24 15:54) Seizure Gabapentin Allergy (Intermediate, Uncoded 05/01/24 15:54) abdominal pains Cymbalta Allergy (Mild, Uncoded 05/01/24 15:54) headaches HPI HPI MAT Visit: Details: Patient presents for follow up Currently prescribed Subxone 8mg BID No issues related to current dose states she trialed her tincture and did not find it effective in managing her pain sx will be continuing with suboxone --still working FT, not ready to be home all day yet Review of Systems Const Reports as per HPI and Reports no additional complaints Physical Exam Const General: cooperative and no acute distress Psych Appearance: grossly normal Mental Status: mental status grossly normal Speech and movement: Normal speech and movement present Affect: normal affect Attitude: cooperative Thought process: Normal thought process present Assessment & Plan Assessment & Plan (1) Opioid use disorder, moderate, in sustained remission: Code(s): F11.21 - Opioid dependence, in remission Category: Medical Plan: * continue suboxone at current dose * follow up 8 weeks [facility] Medical History (Updated 05/02/24 @ 05:52 by Terence Leyva MD) Vitamin D deficiency History of seizure Nausea Poor historian Diarrhea Nausea & vomiting Opioid use disorder, moderate, dependence History of opioid use Abdominal pain Sinusitis Allergic rhinitis History of breast cancer Osteopenia Depression Lumbar degenerative disc disease Myalgia Fatigue Paresthesia of bilateral legs Bilateral lower extremity pain Surgical History History of esophagogastroduodenoscopy (EGD) Hx of colonoscopy Hx of hysterectomy Lump of right breast Hx of tonsillectomy History of lumpectomy of both breasts Family History Father Hypertension Cardiovascular disease Stroke Mother Hypertension Stroke Cardiovascular disease Sister Breast cancer Maternal Aunt Breast cancer Other Mental health problem Substance abuse Social History Household Members Other:: mother Housing: House Are you a primary healthcare insurance sales agent to a significant other at home: No Do you presently have visiting nurse or other home services: No Alcohol intake: current Alcohol intake frequency: 0-2 drinks per day Patient Tobacco Use Status: Never used Tobacco e-Cigarette/Vaping Use: Never Used Second Hand Smoke Exposure: Yes service: No Current occupational status: employed Cognitive needs: No Hearing needs: No Vision needs: No
== END 2024-05-31 16:06 | disposition home or self-care (01) ==
PROVIDERS: PCP Internal Medicine; Visit Provider Nurse Practitioner Psychiatric/Mental Health
DX: F11.21 Opioid dependence, in remission (principal)
CPT/HCPCS: 99213

== ENCOUNTER 2024-07-04 10:11 | Outpatient (REF) | payer OTHER, SELFPAY ==
--- NOTE | ~2024-07-04 | MM_ITS ---
EXAMINATION: MM SCREENING DIGITAL BREAST TOMOSYNTHESIS, BILATERAL CLINICAL INFORMATION: Screening. Asymptomatic. COMPARISON: Mammography: Comparison is made with available priors TECHNIQUE: Digital breast mammography with tomosynthesis is performed in both the craniocaudal and mediolateral oblique views along with computer-aided detection (CAD). FINDINGS: The breasts are heterogeneously dense, which may obscure small masses (ACR BI-RADS breast composition Category c). Right post lumpectomy changes. Right: There are no significant masses, abnormal calcifications, or other abnormalities. Left: Asymmetry retroareolar region middle depth on CC view. No suspicious calcifications or other abnormal findings. MM/MM tomosynthesis screening BI IMPRESSION: Additional imaging is recommended ASSESSMENT: BI-RADS BI-RADS 0 - Incomplete: Needs additional Imaging. RECOMMENDATION: 1. Additional views of the left breast 2. Targeted ultrasound if warranted after review of the additional views. 3. Radiology department staff will contact the patient for additional imaging. Additional Imaging required This examination should not preclude the clinical evaluation of a suspicious palpable abnormality. This patient's information was entered into a reminder system with a target due date for their next mammogram. Electronically signed by: Yolanda Barriga DO 07/18/2024 09:42 AM JOM[facility]
--- NOTE | ~2024-07-04 | MM_ITS ---
EXAMINATION: BONE DENSITOMETRY CLINICAL INDICATION: Asymptomatic menopausal state. COMPARISON: Previous BD dated 01/24/2015 and baseline BD dated 10/25/2009. TECHNIQUE: Using a [employer] DXA System (software version: 13.1) manufactured by [employer], dual-energy x-ray absorptiometry was performed of the lumbar spine and left hip. The images are of good technical quality. Summary results are attached. FINDINGS: AP SPINE L1-L3 (excluding L4): The data of L1-L4 has been changed to exclude the L4 vertebral body, because significant degenerative change at this level may cause overestimation of lumbar spine density. Current: BMD 1.103 g/cm2, Z-score 1.6, T-score -0.6, normal, 11.9% increase from previous, 16.6% increase from baseline (<5% change is not significant). Prior: BMD 0.986 g/cm2. Baseline: BMD 0.946 g/cm2. LEFT FEMUR, NECK: Current: BMD 0.642 g/cm2, Z-score -0.8, T-score -2.8, osteoporosis. Prior: BMD 0.743 g/cm2. Baseline: BMD 0.722 g/cm2. LEFT FEMUR, TOTAL: Current: BMD 0.640 g/cm2, Z-score -1.1, T-score -2.9, osteoporosis, 15.7% decrease from previous, 15.2% decrease from baseline (<5% change is not significant). Prior: BMD 0.759 g/cm2. Baseline: BMD 0.755 g/cm2. IDENTIFIED RISK FACTORS: Secondary osteoporosis (intestinal or bowel disease). Hysterectomy. Bilateral oophorectomy. Menopause. HISTORY OF FRACTURE: None listed. MEDICATIONS: None listed. MM/XR DEXA axial skeleton IMPRESSION: 1. DIAGNOSIS: Osteoporosis based on the lowest T-score value of -2.9 in the total femur applying World Health Organization criteria. 2. 10-YEAR FRACTURE RISK PREDICTION, FRAX: According to the guidelines, FRAX calculation should only be performed on patients in the osteopenia bone density category. Therefore, FRAX was not performed on this patient. 3. Treatment Recommendations: NOF guidelines recommend consideration for treatment in postmenopausal women and men age 50 and older presenting with the following: -A hip or vertebral (clinical or morphometric) fracture. -T-score less than or equal to -2.5 at the femoral neck or spine after appropriate evaluation to exclude secondary causes. -Low bone mass at the hip or spine and a 10-year fracture probability by FRAX of greater than or equal to 3% for hip fracture or greater than or equal to 20% for major osteoporotic fracture based on the [place] adapted WHO algorithm. 4. Other Recommendations: All treatment decisions require clinical judgment and consideration of individual patient factors, including patient preferences, comorbidities, previous drug use, risk factors not captured in the FRAX model (e.g. frailty, falls, vitamin D deficiency, increased bone turnover, interval significant decline in bone density) and possible under or overestimation of fracture risk by FRAX. Additional medical evaluation for secondary cause of low bone mineral density may be appropriate. FUTURE SCAN RECOMMENDATION: People with diagnosed cases of osteoporosis or at high risk for fracture should have regular bone mineral density tests. For patients eligible for Medicare, routine testing is allowed once every 2 years. The testing frequency can be increased to one year for patients who have rapidly progressing disease, those who are receiving or discontinuing medical therapy to restore bone mass, or have additional risk factors. Electronically signed by: Derrell Lubin MD 07/04/2024 01:34 PM J[facility]OSA
== END 2024-07-04 10:12 | disposition home or self-care (01) ==
LOC: HO.MAMMO 10:11
PROVIDERS: PCP Internal Medicine; Visit Provider Internal Medicine
DX: Z12.31 Encounter for screening mammogram for malignant neoplasm of breast (principal); M81.0 Age-related osteoporosis without current pathological fracture; Z85.3 Personal history of malignant neoplasm of breast; Z78.0 Asymptomatic menopausal state
CPT/HCPCS: 77063; 77067; 77080

== ENCOUNTER → 2024-07-04 10:15 | Outpatient (BNV) | payer OTHER, SELFPAY | PROVIDERS: PCP Internal Medicine; Visit Provider Internal Medicine | DX: Z12.31 Encounter for screening mammogram for malignant neoplasm of breast (principal) | CPT/HCPCS: 77063; 77067 ==

== ENCOUNTER 2024-08-07 15:05 | Outpatient (AMB) | payer OTHER, SELFPAY ==
--- NOTE | 2024-08-07 15:13 | A.OFFVISCC_ITS ---
Intake Visit Reasons: MAT Office Allergies alprazolam [From XANAX] Allergy (Intermediate, Verified 05/01/24 15:54) SEIZURE tramadol Allergy (Intermediate, Verified 05/01/24 15:54) Seizure Gabapentin Allergy (Intermediate, Uncoded 05/01/24 15:54) abdominal pains Cymbalta Allergy (Mild, Uncoded 05/01/24 15:54) headaches Medication List - Last Reconciled 08/07/24 by Lisa Kidd CNP buprenorphine-naloxone 8-2 mg (Suboxone) 2 film sublingual DAILY cholecalciferol (vitamin D3) 50 mcg PO DAILY 90 days famotidine 40 mg PO DAILY 90 days ibuprofen 800 mg PO Q8H PRN pantoprazole 40 mg PO DAILY 90 days propranolol 10 mg PO BID PRN HPI HPI MAT Office: Details: Patient presents for follow up Currently prescribed Suboxone 8mg QD Tolerating dose --still having pain, taking ibuprofen Considering cutting her work week down to 4 days per week Denies any issues with sleep or appetite Does feel tired often, though Review of Systems Const Reports as per HPI and Reports no additional complaints Physical Exam Const General: cooperative and no acute distress Psych Appearance: grossly normal Mental Status: mental status grossly normal Speech and movement: Normal speech and movement present Affect: normal affect Attitude: cooperative Thought process: Normal thought process present [facility] Medical History (Updated 05/02/24 @ 05:52 by Terence Leyva MD) Vitamin D deficiency History of seizure Nausea Poor historian Diarrhea Nausea & vomiting Opioid use disorder, moderate, dependence History of opioid use Abdominal pain Sinusitis Allergic rhinitis History of breast cancer Osteopenia Depression Lumbar degenerative disc disease Myalgia Fatigue Paresthesia of bilateral legs Bilateral lower extremity pain Surgical History History of esophagogastroduodenoscopy (EGD) Hx of colonoscopy Hx of hysterectomy Lump of right breast Hx of tonsillectomy History of lumpectomy of both breasts Family History Father Hypertension Cardiovascular disease Stroke Mother Hypertension Stroke Cardiovascular disease Sister Breast cancer Maternal Aunt Breast cancer Other Mental health problem Substance abuse Social History Household Members Other:: mother Housing: House Are you a primary customer care agent to a significant other at home: No Do you presently have visiting nurse or other home services: No Alcohol intake: current Alcohol intake frequency: 0-2 drinks per day Patient Tobacco Use Status: Never used Tobacco e-Cigarette/Vaping Use: Never Used Second Hand Smoke Exposure: Yes service: No Current occupational status: employed Cognitive needs: No Hearing needs: No Vision needs: No Assessment & Plan Assessment & Plan (1) Opioid use disorder, moderate, in sustained remission: Code(s): F11.21 - Opioid dependence, in remission Category: Medical Plan: * continue suboxone at current dose * follow up 8 weeks Medications: Refilled buprenorphine-naloxone 8-2 mg (Suboxone) 2 film sublingual DAILY 60 ea 1RF
--- OUTSIDE RECORDS SUMMARY | 2024-08-07 19:17 | XMS_ITS | Clinical Summary ---
Author Organization [facility] Address [address] [place] [address] Care Team Providers Care Emergency Services Professional Name Role Phone Unavailable Primary Care Provider Unavailabl e Social History Tobacco Use Types Packs/Day Years Used Date Smoking Tobacco: Never Assessed Sex and Gender Information Value Date Recorded Sex Assigned at Not on file Gender Identity Not on file Sexual Orientation Not on file Plan of Treatment Not on file
== END 2024-08-07 15:32 | disposition home or self-care (01) ==
PROVIDERS: PCP Internal Medicine; Visit Provider Nurse Practitioner Psychiatric/Mental Health
DX: F11.21 Opioid dependence, in remission (principal)
CPT/HCPCS: 99213

== ENCOUNTER → 2024-08-07 15:05 | Outpatient (BNVA) | payer OTHER, SELFPAY | PROVIDERS: PCP Internal Medicine; Visit Provider Nurse Practitioner Psychiatric/Mental Health ==

== ENCOUNTER → 2024-08-16 11:30 | Outpatient (BNV) | payer OTHER, SELFPAY | PROVIDERS: PCP Internal Medicine; Visit Provider Internal Medicine | DX: R92.8 Other abnormal and inconclusive findings on diagnostic imaging of breast (principal); Z85.3 Personal history of malignant neoplasm of breast | CPT/HCPCS: 76642; 77061; 77065 ==

== ENCOUNTER 2024-08-16 11:32 | Outpatient (REF) | payer OTHER, SELFPAY ==
--- NOTE | ~2024-08-16 | MM_ITS ---
EXAMINATION: MM DIAGNOSTIC DIGITAL BREAST TOMOSYNTHESIS, LEFT Limited left breast ultrasound. CLINICAL INFORMATION: History of right breast cancer status post lumpectomy. Callback from screening for left breast asymmetry on CC view. COMPARISON: Mammography: Comparison is made with available prior examinations. TECHNIQUE: Digital breast tomosynthesis is performed in both the craniocaudal and mediolateral oblique views along with computer-aided detection (CAD). Synthesized 2D images are generated from the tomosynthesis. Limited left breast ultrasound. FINDINGS: The breasts are heterogeneously dense, which may obscure small masses (ACR BI-RADS breast composition Category c). The previously seen asymmetry in the retroareolar region of the left breast on CC view partially effaces on additional imaging projections. Suspicious calcifications or other abnormal findings. Targeted color Doppler ultrasound scanning in the retroareolar region from 10 2:00 and 4- 8:00 demonstrates normal fibroglandular breast tissue. There is no sonographic abnormal findings. MM/MM tomosynthesis added views L IMPRESSION: Left: Asymmetry which partially effaces and without sonographic correlate. Recommend 6 month follow-up left breast mammography for further evaluation of stability. Patient has a history of right breast cancer and heterogeneous dense tissue. Breast MRI screening surveillance could be considered for further evaluation. Breast MRI would need to be ordered by the patient's providing clinician. ASSESSMENT: BI-RADS BI-RADS 3 - Probably benign finding(s) - 6 month follow-up suggested RECOMMENDATION: 6 Month F/U Results were provided to the patient at time of visit by the technologist. This patient's information was entered into a reminder system with a target due date for their next mammogram. Electronically signed by: Yolanda Barriga DO 08/16/2024 12:23 PM JOMAR
--- OUTSIDE RECORDS SUMMARY | 2024-08-16 13:24 | XMS_ITS | Clinical Summary ---
[facility] Organization [facility] Address [address] [place] [address] Care Team Providers Care Clinical Systems Educator Name Role Phone Unavailable Primary Care Provider Unavailabl e Social History Tobacco Use Types Packs/Day Years Used Date Smoking Tobacco: Never Assessed Sex and Gender Information Value Date Recorded Sex Assigned at Not on file Gender Identity Not on file Sexual Orientation Not on file Plan of Treatment Not on file
== END 2024-08-16 11:33 | disposition home or self-care (01) ==
LOC: HO.MAMMO 11:32
PROVIDERS: PCP Internal Medicine; Visit Provider Internal Medicine
DX: N64.89 Other specified disorders of breast (principal)
CPT/HCPCS: 76642; 77061; 77065

== ENCOUNTER 2024-10-16 15:50 | Outpatient (AMB) | payer OTHER, SELFPAY ==
--- NOTE | 2024-10-16 15:49 | MHC.OFFVIS ---
Vital Signs 10/16/24 15:50 Height 5 ft Weight 114 lb BMI 22.3 Pulse 76 Pulse Source Pulse Oximeter Pulse Oximetry (%) 96 Oxygen Delivery Method Room Air Intake Visit Reasons: MAT Allergies alprazolam [From XANAX] Allergy (Intermediate, Verified 10/16/24 15:54) SEIZURE tramadol Allergy (Intermediate, Verified 10/16/24 15:54) Seizure Gabapentin Allergy (Intermediate, Uncoded 05/01/24 15:54) abdominal pains Cymbalta Allergy (Mild, Uncoded 05/01/24 15:54) headaches HPI HPI MAT: Details: She is on Suboxone after stopped oxy for chronic pain. She still has some pain but wants to get off meds. She has no constipation of significance. [facility] Medical History (Updated 10/16/24 @ 16:23 by Sheyla Howard MD) Vitamin D deficiency History of seizure Nausea Poor historian Diarrhea Nausea & vomiting Opioid use disorder, moderate, dependence History of opioid use Abdominal pain Sinusitis Allergic rhinitis History of breast cancer Osteopenia Depression Lumbar degenerative disc disease Myalgia Fatigue Paresthesia of bilateral legs Bilateral lower extremity pain Surgical History History of esophagogastroduodenoscopy (EGD) Hx of colonoscopy Hx of hysterectomy Lump of right breast Hx of tonsillectomy History of lumpectomy of both breasts Family History Father Hypertension Cardiovascular disease Stroke Mother Hypertension Stroke Cardiovascular disease Sister Breast cancer Maternal Aunt Breast cancer Other Mental health problem Substance abuse Social History Household Members Other:: mother Housing: House Are you a primary career and guidance counselor to a significant other at home: No Do you presently have visiting nurse or other home services: No Alcohol intake: current Alcohol intake frequency: 0-2 drinks per day Patient Tobacco Use Status: Never used Tobacco e-Cigarette/Vaping Use: Never Used Second Hand Smoke Exposure: Yes service: No Current occupational status: employed Cognitive needs: No Hearing needs: No Vision needs: No Review of Systems Const All systems reviewed & are unremarkable except as noted in HPI and below Physical Exam Vital Signs: Last Vital Signs Pulse 76 10/16/24 15:50 Pulse Ox 96 10/16/24 15:50 Oxygen Delivery Method Room Air 10/16/24 15:50 BMI result Body Mass Index 22.3 Const General: cooperative Results AMB 14 Panel Urine Drug Screen Urine Marijuana (THC) Negative Last Edit by Rebekah Norman CMA on 10/16/24 15:56 Urine Cocaine Negative Last Edit by Rebekah Norman CMA on 10/16/24 15:56 Urine Morphine Negative Last Edit by Rebekah Norman CMA on 10/16/24 15:56 Urine Methamphetamine Negative Last Edit by Rebekah Norman CMA on 10/16/24 15:56 Urine Amphetamine Negative Last Edit by Rebekah Norman CMA on 10/16/24 15:56 Urine Benzodiazepine Negative Last Edit by Rebekah Norman CMA on 10/16/24 15:56 Urine Barbiturates Negative Last Edit by Rebekah Norman CMA on 10/16/24 15:56 Urine Methadone Negative Last Edit by Rebekah Norman CMA on 10/16/24 15:56 Urine Buprenorphine Positive Last Edit by Rebekah Norman CMA on 10/16/24 15:56 Urine Tricyclic Antidepressant Negative Last Edit by Rebekah Norman CMA on 10/16/24 15:56 Urine MDMA Negative Last Edit by Rebekah Norman CMA on 10/16/24 15:56 Urine Oxycodone Negative Last Edit by Rebekah Norman CMA on 10/16/24 15:56 Urine Phencyclidine Negative Last Edit by Rebekah Norman CMA on 10/16/24 15:56 Urine Propoxyphene Negative Last Edit by Rebekah Norman CMA on 10/16/24 15:56 Results Reviewed Results Reviewed: Laboratory Last Values POC Urine Buprenorphine Positive 10/16/24 15:54 POC Urine Morphine Negative 10/16/24 15:54 POC Urine Oxycodone Negative 10/16/24 15:54 POC Urine Methadone Negative 10/16/24 15:54 POC Urine Propoxyphene Negative 10/16/24 15:54 POC Urine Barbiturates Negative 10/16/24 15:54 POC U Tricyclic Antidpr Negative 10/16/24 15:54 POC Urine PCP Negative 10/16/24 15:54 POC Ur Amphetamines Negative 10/16/24 15:54 POC Ur Methamphetamine Negative 10/16/24 15:54 POC Urine MDMA Negative 10/16/24 15:54 POC Ur Benzodiazepine Negative 10/16/24 15:54 POC Urine Cocaine Negative 10/16/24 15:54 POC Ur Marijuana (THC) Negative 10/16/24 15:54 Assessment & Plan Assessment & Plan (1) Opioid use disorder, moderate, in sustained remission: Comment: She is doing well Code(s): F11.21 - Opioid dependence, in remission Category: Medical Plan: Suboxone 8/2 daily,one month and one refill. See in two months. Orders: Orders AMB 14 Panel Urine Drug Screen Today Z51.81 - Encounter for therapeutic drug level monitoring Basic Metabolic Panel Today F11.21 - Opioid dependence, in remission Liver Panel Today F11.21 - Opioid dependence, in remission Hepatitis A IgG Today F11.21 - Opioid dependence, in remission Hepatitis B Surface Ab Qnt Today F11.21 - Opioid dependence, in remission Hepatitis B Core Antibody Today F11.21 - Opioid dependence, in remission Hepatitis B Surface Antigen Today F11.21 - Opioid dependence, in remission T Spot TB Today F11.21 - Opioid dependence, in remission Syphilis Screen Today F11.21 - Opioid dependence, in remission Complete Blood Count Auto Diff Today F11.21 - Opioid dependence, in remission Hepatitis C Antibody Reflex Today F11.21 - Opioid dependence, in remission HIV Ab/Ag Today F11.21 - Opioid dependence, in remission Medications: New buprenorphine-naloxone 8-2 mg (Suboxone) place 1 film on inside of (each) cheek 2 film sublingual DAILY 60 ea 1RF 30 days Coding Level of Care Code Est Pt Level 3 (86944) Diagnoses Opioid use disorder, moderate, in sustained remission F11.21
[2024-10-16 15:50] VITALS: PULSE 76; O2SAT 96; BMI 22.3
--- OUTSIDE RECORDS SUMMARY | 2024-10-16 18:30 | XMS_ITS | Clinical Summary ---
[facility] Organization [facility] Address [address] [place] [address] Care Team Providers Care Transportation Engineer Name Role Phone Unavailable Primary Care Provider Unavailabl e Social History Tobacco Use Types Packs/Day Years Used Date Smoking Tobacco: Never Assessed Sex and Gender Information Value Date Recorded Sex Assigned at Not on file Gender Identity Not on file Sexual Orientation Not on file Plan of Treatment Not on file
== END 2024-10-16 16:39 | disposition home or self-care (01) ==
LOC: HO.HCC 15:50
PROVIDERS: PCP Internal Medicine; Visit Provider Internal Medicine
DX: Z51.81 Encounter for therapeutic drug level monitoring (principal); F11.21 Opioid dependence, in remission
CPT/HCPCS: 99213

== ENCOUNTER → 2024-10-16 15:50 | Outpatient (BNVA) | payer OTHER, SELFPAY | PROVIDERS: PCP Internal Medicine; Visit Provider Internal Medicine | DX: F11.21 Opioid dependence, in remission (principal) | CPT/HCPCS: 80307 ==

== ENCOUNTER 2024-12-15 15:31 | Outpatient (AMB) | payer OTHER, SELFPAY ==
[2024-12-15 15:32] VITALS: PULSE 97; O2SAT 90
--- NOTE | 2024-12-15 15:32 | A.OFFVIS_ITS ---
Vital Signs 12/15/24 15:32 Height 5 ft Pulse 97 Pulse Source Pulse Oximeter Pulse Oximetry (%) 90 L Intake Visit Reasons: MAT Allergies alprazolam [From XANAX] Allergy (Intermediate, Verified 12/15/24 15:36) SEIZURE tramadol Allergy (Intermediate, Verified 12/15/24 15:36) Seizure Gabapentin Allergy (Intermediate, Uncoded 05/01/24 15:54) abdominal pains Cymbalta Allergy (Mild, Uncoded 05/01/24 15:54) headaches HPI Comments Details: She is doing well. She has no complaints [facility] Medical History Vitamin D deficiency History of seizure Nausea Poor historian Diarrhea Nausea & vomiting Opioid use disorder, moderate, dependence History of opioid use Abdominal pain Sinusitis Allergic rhinitis History of breast cancer Osteopenia Depression Lumbar degenerative disc disease Myalgia Fatigue Paresthesia of bilateral legs Bilateral lower extremity pain Surgical History History of esophagogastroduodenoscopy (EGD) Hx of colonoscopy Hx of hysterectomy Lump of right breast Hx of tonsillectomy History of lumpectomy of both breasts Family History Father Hypertension Cardiovascular disease Stroke Mother Hypertension Stroke Cardiovascular disease Sister Breast cancer Maternal Aunt Breast cancer Other Mental health problem Substance abuse Social History Household Members Other:: mother Housing: House Are you a primary career services representative to a significant other at home: No Do you presently have visiting nurse or other home services: No Alcohol intake: current Alcohol intake frequency: 0-2 drinks per day Patient Tobacco Use Status: Never used Tobacco e-Cigarette/Vaping Use: Never Used Second Hand Smoke Exposure: Yes service: No Current occupational status: employed Cognitive needs: No Hearing needs: No Vision needs: No Review of Systems Const All systems reviewed & are unremarkable except as noted in HPI and below Physical Exam Vital Signs: Last Vital Signs Pulse 97 12/15/24 15:32 Pulse Ox 90 L 12/15/24 15:32 Const General: cooperative Assessment & Plan Assessment & Plan (1) Opioid use disorder, moderate, in sustained remission: Comment: She is doing well Code(s): F11.21 - Opioid dependence, in remission Category: Medical Plan Continue bid Suboxone See in two months. Medications: New buprenorphine-naloxone 8-2 mg (Suboxone) 1 film sublingual BID 60 ea 1RF 30 days Coding Level of Care Code Est Pt Level 3 (55170) Diagnoses Opioid use disorder, moderate, in sustained remission F11.21
--- OUTSIDE RECORDS SUMMARY | 2024-12-15 15:34 | XMS_ITS | Clinical Summary ---
Author Organization [facility] Address [address] [place] [address] Care Team Providers Care E Tailer Name Role Phone Unavailable Primary Care Provider Unavailabl e Social History Tobacco Use Types Packs/Day Years Used Date Smoking Tobacco: Never Assessed Sex and Gender Information Value Date Recorded Sex Assigned at Not on file Gender Identity Not on file Sexual Orientation Not on file Plan of Treatment Not on file
== END 2024-12-15 16:00 | disposition home or self-care (01) ==
LOC: HO.HCC 15:32
PROVIDERS: PCP Internal Medicine; Visit Provider Internal Medicine
DX: F11.21 Opioid dependence, in remission (principal)
CPT/HCPCS: 99213

== ENCOUNTER 2025-02-14 15:08 | Outpatient (AMB) | payer OTHER, SELFPAY ==
--- OUTSIDE RECORDS SUMMARY | 2025-02-14 15:38 | XMS_ITS | Clinical Summary ---
Author Organization [facility] Address [address] [place] [address] Care Team Providers Care Order Processing Clerk Name Role Phone Unavailable Primary Care Provider Unavailabl e Social History Tobacco Use Types Packs/Day Years Used Date Smoking Tobacco: Never Assessed Sex and Gender Information Value Date Recorded Sex Assigned at Not on file Gender Identity Not on file Sexual Orientation Not on file Plan of Treatment Not on file
--- NOTE | 2025-02-14 15:48 | A.OFFVIS_ITS ---
Vital Signs 02/14/25 15:53 Height 5 ft Weight 109 lb BMI 21.3 Pulse 80 Pulse Source Pulse Oximeter Pulse Oximetry (%) 98 Oxygen Delivery Method Room Air Intake Visit Reasons: Mat Allergies alprazolam (From XANAX) Allergy (Intermediate, Verified 02/14/25 15:53) SEIZURE tramadol Allergy (Intermediate, Verified 02/14/25 15:53) Seizure Gabapentin Allergy (Intermediate, Uncoded 05/01/24 15:54) abdominal pains Cymbalta Allergy (Mild, Uncoded 05/01/24 15:54) headaches HPI HPI Mat: Details: She is doing well. She has no complaints. [facility] Medical History Vitamin D deficiency History of seizure Nausea Poor historian Diarrhea Nausea & vomiting Opioid use disorder, moderate, dependence History of opioid use Abdominal pain Sinusitis Allergic rhinitis History of breast cancer Osteopenia Depression Lumbar degenerative disc disease Myalgia Fatigue Paresthesia of bilateral legs Bilateral lower extremity pain Surgical History History of esophagogastroduodenoscopy (EGD) Hx of colonoscopy Hx of hysterectomy Lump of right breast Hx of tonsillectomy History of lumpectomy of both breasts Family History Father Hypertension Cardiovascular disease Stroke Mother Hypertension Stroke Cardiovascular disease Sister Breast cancer Maternal Aunt Breast cancer Other Mental health problem Substance abuse Social History Household Members Other:: mother Housing: House Are you a primary patient care technician instructor to a significant other at home: No Do you presently have visiting nurse or other home services: No Alcohol intake: current Alcohol intake frequency: 0-2 drinks per day Patient Tobacco Use Status: Never used Tobacco e-Cigarette/Vaping Use: Never Used Second Hand Smoke Exposure: Yes service: No Current occupational status: employed Cognitive needs: No Hearing needs: No Vision needs: No Review of Systems Const All systems reviewed & are unremarkable except as noted in HPI and below Physical Exam Vital Signs: Last Vital Signs Pulse 80 02/14/25 15:53 Pulse Ox 98 02/14/25 15:53 Oxygen Delivery Method Room Air 02/14/25 15:53 BMI result Body Mass Index 21.3 Const General: cooperative Assessment & Plan Assessment & Plan (1) Opioid use disorder, moderate, in sustained remission: Comment: She is doing well Code(s): F11.21 - Opioid dependence, in remission Category: Medical Plan Continue current dose Suboxone 8/2 bid. See as scheduled. Coding Level of Care Code Est Pt Level 3 (49329) Diagnoses Opioid use disorder, moderate, in sustained remission F11.21
[2025-02-14 15:53] VITALS: PULSE 80; O2SAT 98; BMI 21.3
== END 2025-02-14 16:15 | disposition home or self-care (01) ==
LOC: HO.HCC 15:08
PROVIDERS: Visit Provider Internal Medicine
DX: F11.21 Opioid dependence, in remission (principal)
CPT/HCPCS: 99213

== ENCOUNTER 2025-04-13 15:55 | Outpatient (AMB) | payer OTHER, SELFPAY ==
--- OUTSIDE RECORDS SUMMARY | 2025-04-13 15:57 | XMS_ITS | Clinical Summary ---
Author [facility] Address [address] [place] [address] Care Team Providers Care Rug Hooker Name Role Phone Unavailable Primary Care Provider Unavailabl e Social History Tobacco Use Types Packs/Day Years Used Date Smoking Tobacco: Never Assessed Sex and Gender Information Value Date Recorded Sex Assigned at Not on file Gender Identity Not on file Sexual Orientation Not on file Plan of Treatment Not on file
--- NOTE | 2025-04-13 16:02 | MHC.OFFVIS ---
Intake Visit Reasons: MAT Allergies alprazolam (From XANAX) Allergy (Intermediate, Verified 04/13/25 16:03) SEIZURE tramadol Allergy (Intermediate, Verified 04/13/25 16:03) Seizure Gabapentin Allergy (Intermediate, Uncoded 04/13/25 16:03) abdominal pains Cymbalta Allergy (Mild, Uncoded 04/13/25 16:03) headaches HPI Comments Details: History of Present Illness The patient is a 69-year-old female presenting for follow-up on opioid use disorder. During the televisit today, she noted consistent adherence to her medication regimen, reporting no unexpected side effects such as constipation, depression, or anxiety. Her condition remains stable under the current treatment with Suboxone 8/2 BID, and she exhibits no new symptoms or concerns. The patient's comfort with the treatment and satisfaction with progress continues. She consented to the use of ambient technology during the visit. Review of Systems - Gastrointestinal: Denies constipation. - Psychiatric: Denies depression, denies anxiety. Physical Exam Results Plan Patient was informed and verbally consented to the use of an ambient scribe for clinic note documentation during this visit. 1. Opioid use, unspecified, uncomplicated F11.90 The patient is adhering well to her current management with Suboxone 8/2 BID, reporting neither adverse side effects nor new concerns. The patient shall continue with the same regimen. I have recommended scheduling her next in-person follow-up in a couple of months to ensure continued monitoring and support. Discussion Notes During today's televisit, I discussed the ongoing management of the patient's opioid use disorder. We reviewed the effectiveness of her current medication regimen, Suboxone 8/2 BID, which she seems to tolerate well without adverse side effects such as constipation, depression, or anxiety. I emphasized the importance of adherence to the treatment plan to maintain her stable condition. We also discussed scheduling an in-person follow-up for continuous monitoring of her health status and therapy effectiveness. The patient consented to the use of ambient technology in conducting this visit and reported no new areas of concern requiring immediate attention. Medical Decision Making The patient's condition currently demonstrates stability with her established opioid use disorder treatment regimen, Suboxone 8/2 BID. She has shown no signs of adverse effects or complications, confirming the appropriateness of the chosen therapy. The current management plan has proven effective in maintaining her state, reducing potential relapse risk, and managing mental health aspects. Continuing the current medication dosages is appropriate given the absence of new symptoms. Prioritizing regular follow-up will facilitate monitoring and address any potential changes swiftly. Patient Instructions - Continue taking Suboxone 8/2 BID as prescribed. - Maintain your current routine and medication adherence. - Attend the follow-up appointment in person as scheduled. - Notify the clinic if any new symptoms or concerns arise. [facility] Medical History Vitamin D deficiency History of seizure Nausea Poor historian Diarrhea Nausea & vomiting Opioid use disorder, moderate, dependence History of opioid use Abdominal pain Sinusitis Allergic rhinitis History of breast cancer Osteopenia Depression Lumbar degenerative disc disease Myalgia Fatigue Paresthesia of bilateral legs Bilateral lower extremity pain Surgical History History of esophagogastroduodenoscopy (EGD) Hx of colonoscopy Hx of hysterectomy Lump of right breast Hx of tonsillectomy History of lumpectomy of both breasts Family History Father Hypertension Cardiovascular disease Stroke Mother Hypertension Stroke Cardiovascular disease Sister Breast cancer Maternal Aunt Breast cancer Other Mental health problem Substance abuse Social History Household Members Other:: mother Housing: House Are you a primary long term care phlebotomist to a significant other at home: No Do you presently have visiting nurse or other home services: No Alcohol intake: current Alcohol intake frequency: 0-2 drinks per day Patient Tobacco Use Status: Never used Tobacco e-Cigarette/Vaping Use: Never Used Second Hand Smoke Exposure: Yes service: No Current occupational status: employed Cognitive needs: No Hearing needs: No Vision needs: No Telehealth Telehealth Telehealth Platform: Telephone Location of provider rendering services: practice address Location of patient: address on file Patient Identification confirmed using: Name, : Yes Telehealth method: voice only Patient verbally consented to treatment: Yes Patient verbally consented to billing insurance company: Yes Patient informed of any privacy concerns related to visit: Yes Assessment & Plan Assessment & Plan (1) Opioid use disorder, moderate, in sustained remission: Comment: She is doing well Code(s): F11.21 - Opioid dependence, in remission Category: Medical Plan na Medications: New buprenorphine-naloxone 8-2 mg (Suboxone) 1 film sublingual BID 60 ea 1RF 30 days Coding Level of Care Code Tele New Pt Level 3 (57300) Diagnoses Opioid use disorder, moderate, in sustained remission F11.21
== END 2025-04-13 16:04 | disposition home or self-care (01) ==
LOC: HO.HCC 15:55
PROVIDERS: Visit Provider Internal Medicine
DX: F11.21 Opioid dependence, in remission (principal)
CPT/HCPCS: 99213

== ENCOUNTER 2025-04-18 14:31 | Emergency (ER) | payer OTHER, SELFPAY ==
[2025-04-18 14:37] VITALS: BP 116/87; PULSE 87; RESP 16; TEMP 37; O2SAT 97; BMI 19.5
--- NOTE | 2025-04-18 14:39 | ED.GENADULT ---
HPI - General Adult General Chief complaint: Skin/Abscess/Foreign Body Stated complaint: rash all over for 2 mths now getting abscesses Time Seen by Provider: 04/18/25 20:22 Source: patient Limitations: no limitations History of Present Illness ED Provider: Argelia Madrid PA-C HPI narrative: 69-year-old female with a history of opiate use disorder now in remission on Suboxone, alcohol use disorder, anxiety, GERD, depression, chronic back pain, who presents with full body rash x2 months. Patient describes raised, erythematous lesions all over her body, they all have developed scab formation, they are pruritic. Patient has been seen by multiple providers, she has been treated for scabies, she is currently on a steroid taper which is helping alleviate her symptoms. She is supposed to see a bearing machine operator, she is not clear when. Denies recent medication change, other people with similar rash, change in body products or implementing new foods. Patient states she is exposed to ticks frequently, however denies joint pain. Related Data Previous Rx's ?Medication ?Instructions ?Recorded ibuprofen 800 mg tablet 800 mg PO Q8H PRN for pain #90 tabs 04/06/21 famotidine 40 mg tablet 40 mg PO DAILY 90 days #90 tabs 11/24/23 pantoprazole 40 mg tablet,delayed 40 mg PO DAILY 90 days #90 tabs 12/28/23 release buprenorphine 8 mg-naloxone 2 mg 2 film sublingual DAILY #60 ea 08/07/24 sublingual film (Suboxone) buprenorphine 8 mg-naloxone 2 mg 2 film sublingual DAILY 30 days 10/16/24 sublingual film (Suboxone) #60 ea buprenorphine 8 mg-naloxone 2 mg 1 film sublingual BID 30 days #60 12/15/24 sublingual film (Suboxone) ea buprenorphine 8 mg-naloxone 2 mg 1 film sublingual BID 30 days #60 02/21/25 sublingual film (Suboxone) ea buprenorphine 8 mg-naloxone 2 mg 1 film sublingual BID 30 days #60 04/13/25 sublingual film (Suboxone) ea hydroxyzine HCl 25 mg tablet 25 mg PO TID PRN itching #15 tabs 04/18/25 Allergies Allergy/AdvReac Type Severity Reaction Status Date / Time alprazolam (From XANAX) Allergy Intermediate SEIZURE Verified 04/18/25 14:40 tramadol Allergy Intermediate Seizure Verified 04/18/25 14:40 Gabapentin Allergy Intermediate abdominal Uncoded 04/13/25 16:03 pains Cymbalta Allergy Mild headaches Uncoded 04/13/25 16:03 Review of Systems Review of Systems: Yes all other systems are reviewed and are negative Constitutional: Constitutional: Denies fatigue and Denies fever(s) Cardiovascular: Cardiovascular: Denies chest pain and Denies dyspnea Respiratory: Respiratory: Denies dyspnea Gastrointestinal: Gastrointestinal: Denies abdominal pain, Denies nausea and Denies vomiting Integumentary/Breasts: Skin/Breast: Reports pruritus, Reports lesions and Reports rash Endocrine: Endocrine: Denies fatigue PMFSH Past Medical History Attestation statement: The following information was validated with the patient. Medical History Vitamin D deficiency History of seizure Nausea Poor historian Diarrhea Nausea & vomiting Opioid use disorder, moderate, dependence History of opioid use Abdominal pain Sinusitis Allergic rhinitis History of breast cancer Osteopenia Depression Lumbar degenerative disc disease Myalgia Fatigue Paresthesia of bilateral legs Bilateral lower extremity pain Surgical History History of esophagogastroduodenoscopy (EGD) Hx of colonoscopy Hx of hysterectomy Lump of right breast Hx of tonsillectomy History of lumpectomy of both breasts Family History Family History Father Hypertension Cardiovascular disease Stroke Mother Hypertension Stroke Cardiovascular disease Sister Breast cancer Maternal Aunt Breast cancer Other Mental health problem Substance abuse Social History Social History Household Members Other:: mother Housing: House Are you a primary long term care administrator to a significant other at home: No Do you presently have visiting nurse or other home services: No Alcohol intake: current Alcohol intake frequency: 0-2 drinks per day Patient Tobacco Use Status: Never used Tobacco e-Cigarette/Vaping Use: Never Used Second Hand Smoke Exposure: Yes Advance Directives: No Advance Directives Information Provided: No service: No Current occupational status: employed Cognitive needs: No Hearing needs: No Vision needs: No Physical Exam ED Vital Signs: Vital Signs - 24 hr 04/18/25 14:37 04/18/25 18:04 Temperature 98.6 F 97.3 F Pulse Rate 87 83 Respiratory Rate 16 16 Blood Pressure 116/87 137/65 Pulse Oximetry 97 99 Oxygen Delivery Method Room Air Room Air BMI result Body Mass Index 19.5 Const Other: Alert overall well-appearing Orientation/consciousness: patient oriented x3 Resp Effort & Inspection: normal respiratory effort Cardio Other: Normal peripheral perfusion Skin Other: The lesions resembles folliculitis, they are fascicular they are scabbed over many regions, some regions of excoriation, she has them over upper extremities lower extremities anterior posterior torso, along the sides of her neck and into the scalp. Neuro General: patient oriented x3, gait normal, no focal motor deficits and CN's II-XI intact bilaterally Psych Other: Cooperative Course Course Course Narrative: This is a rapid medical exam performed by Celina Farooq NP: Additional HPI, ROS, PE not included below will be deferred to primary provider. Patient is a 69y/o F presenting with complaint of pruritic rash to entire body for several months, and is now developing abscesses. Went to urgent care recently and was treated with prednisone. Has not been prescribed and antibiotics. Concerned for tick borne illness. Diffuse erythematous/scabbed lesions to arms, legs, trunk. Abscess to lower back. Plan: labs Medical Decision Making Medical Decision Making [facility] Narrative: 69-year-old female with a history of opiate use disorder now in remission on Suboxone, alcohol use disorder, anxiety, GERD, depression, chronic back pain, who presents with full body rash x2 months. Patient describes raised, erythematous lesions all over her body, they all have developed scab formation, they are pruritic. Patient has been seen by multiple providers, she has been treated for scabies, she is currently on a steroid taper which is helping alleviate her symptoms. She is supposed to see a bearing machine operator, she is not clear when. Denies recent medication change, other people with similar rash, change in body products or implementing new foods. Patient states she is exposed to ticks frequently, however denies joint pain. Problem: Rash History: Per patient I have considered the following differential diagnoses: Drug reaction, allergic reaction to food, scabies, bedbugs, contact dermatitis, shingles, rash associated with tick-borne illness Plan: Patient has contact dermatitis of unclear etiology, she has been ruled out for scabies, the steroid taper is helping. We will give her a script for hydroxyzine, and I have told her she needs to use Zyrtec. I am also giving her the contact for [facility]. She has a tick panel pending, she is aware, I do not think this is tick related at all. I have independently reviewed the following tests: Labs: No leukocytosis, not anemic, not thrombocytopenic, no bump in LFTs, no electrolyte abnormality, tick panel pending Differential Diagnosis Differential Diagnoses: The differential diagnosis associated with the presentation includes See medical decision-making Admission/Observation Consideration of admission/observation: Escalation of care including admission/observation considered Not applicable Lab Data MDM Lab Attestation statement: I reviewed the patient's lab results. 04/18/25 14:55 04/18/25 14:55 Labs: Lab Results 04/18/25 Range/Units 14:55 WBC 6.1 (4.8-10.8) X10*3/uL RBC 3.60 L (4.20-5.50) X10*6/uL Hgb 11.3 L (12.0-16.0) g/dl Hct 34.5 L (37.0-47.0) % MCV 95.8 (80.0-98.0) fL MCH 31.4 (27.0-33.0) pg MCHC 32.8 (31.0-35.0) g/dl RDW 12.9 (11.0-16.0) % Plt Count 416 H (160-400) X10*3/uL MPV 8.7 L (9.4-12.3) fL Immature Gran % (Auto) 0.3 (0.0-0.4) % Neut % (Auto) 56.6 (45-73) % Lymph % (Auto) 20.1 (20-40) % [place] % (Auto) 9.1 (2-11) % Eos % (Auto) 13.4 H (0-4) % Baso % (Auto) 0.5 (0-2) % Lymph # (Auto) 1.2 (1.2-4.9) X10*3/uL [place] # (Auto) 0.6 (0.1-1.2) X10*3/uL Eos # (Auto) 0.8 H (0.0-0.4) X10*3/uL Baso # (Auto) 0.0 (0.0-0.2) X10*3/uL Abs Immat Gran (auto) 0.02 (0.00-0.03) X10*3/uL Absolute Neuts (auto) 3.4 (2.0-8.3) x10*3/uL Absolute Nucleated RBC 0.000 (0.0-0.012) X10*3/uL Nucleated RBC % (auto) 0.0 (0.0-0.2) /100WBC Sodium 143 (135-145) mmol/L Potassium 3.7 (3.3-5.1) mmol/L Chloride 113 H (96-108) mmol/L Carbon Dioxide 27 (22-29) mmol/L Anion Gap 7 L (12-20) BUN 24 H (9-16) mg/dL Creatinine 0.76 (0.5-1.4) mg/dL Estim Creat Clear Calc 49.9 Estimated GFR > 60 Random Glucose 87 (60-115) mg/dL Calcium 8.7 (8.4-10.2) mg/dL Total Bilirubin 0.1 (0.0-1.0) mg/dL AST 28 (5-31) U/L ALT 21 (0-31) U/L Alkaline Phosphatase 95 (39-117) U/L Total Protein 6.6 (6.5-8.0) g/dL Albumin 3.7 (3.5-5.0) g/dL Discharge Plan Discharge Clinical Impression: Rash Patient Disposition: Home, Self-Care Instructions: Contact Dermatitis (ED) Additional Instructions: The etiology of your rash is unclear. Continue to take the steroid taper as it is helping to resolve the rash. Use [id number] Zyrtec daily for the next few weeks. I am sending you with a prescription for hydroxyzine to help with the itching, use it as needed. You need to see a bearing machine operator, I am providing you with a contact. You have labs pending, you will be contacted by the facility with the results if you test positive and require treatment. You can also access your results on the [facility] patient portal. [facility] [address] [place] [address] Prescriptions: New hydroxyzine HCl 25 mg tablet 25 mg PO TID PRN (Reason: itching) Qty: 15 0RF No Action ibuprofen 800 mg tablet 800 mg PO Q8H PRN (Reason: for pain) Qty: 90 0RF pantoprazole 40 mg tablet,delayed release (DR/EC) 40 mg PO DAILY 90 Days Qty: 90 3RF buprenorphine-naloxone [Suboxone] 8-2 mg film 1 film sublingual BID 30 Days Qty: 60 1RF famotidine 40 mg tablet 40 mg PO DAILY 90 Days Qty: 90 3RF Rx Instructions: Take at HS buprenorphine-naloxone [Suboxone] 8-2 mg film 2 film sublingual DAILY 30 Days Qty: 60 1RF Rx Instructions: place 1 film on inside of (each) cheek buprenorphine-naloxone [Suboxone] 8-2 mg film 1 film sublingual BID 30 Days Qty: 60 1RF buprenorphine-naloxone [Suboxone] 8-2 mg film 2 film sublingual DAILY Qty: 60 1RF buprenorphine-naloxone [Suboxone] 8-2 mg film 1 film sublingual BID 30 Days Qty: 60 1RF Print Language: Bel[place]ian
[2025-04-18 15:04] LABS: MANUAL DIFF FLAG NO
[2025-04-18 15:06] LABS: Hematocrit 34.5 % (37.0-47.0); Hemoglobin 11.3 g/dl (12.0-16.0); Imm Gran Abs Auto 0.02 X10*3/uL (0.00-0.03); Imm Gran Pct Auto 0.3 % (0.0-0.4); Lymphocytes Absolute Auto 1.2 X10*3/uL (1.2-4.9); Mean Corpuscular HGB Conc 32.8 g/dl (31.0-35.0); Mean Corpuscular Hemoglobin 31.4 pg (27.0-33.0); Mean Corpuscular Volume 95.8 fL (80.0-98.0); NRBC Abs Auto 0.000 X10*3/uL (0.0-0.012); NRBC Pct Auto 0.0 /100WBC (0.0-0.2); Platelet Count 416 X10*3/uL (160-400); Red Blood Count 3.60 X10*6/uL (4.20-5.50); White Blood Count 6.1 X10*3/uL (4.8-10.8)
[2025-04-18 16:12] LABS: Alanine Aminotransferase 21 U/L (0-31); Albumin Level 3.7 g/dL (3.5-5.0); Alkaline Phosphatase 95 U/L (39-117); Anion Gap 7 (12-20); Aspartate Amino Transferase 28 U/L (5-31); Blood Urea Nitrogen 24 mg/dL (9-16); Calcium 8.7 mg/dL (8.4-10.2); Carbon Dioxide 27 mmol/L (22-29); Chloride 113 mmol/L (96-108); Creatinine Clr Calc Pharmacy 49.9; Estimated Glomerular Filt Rate > 60; Potassium 3.7 mmol/L (3.3-5.1); Sodium 143 mmol/L (135-145); Total Protein 6.6 g/dL (6.5-8.0)
[2025-04-18 18:04] VITALS: BP 137/65; PULSE 83; RESP 16; TEMP 36.3; O2SAT 99
[2025-04-18 21:20] VITALS: BP 144/85; PULSE 93; RESP 16; TEMP 36.5; O2SAT 95
[2025-04-19 05:58] LABS: Lyme Abs Screen <0.90 index
[2025-04-19 07:35] LABS: Syphilis Screen Nonreactive (Nonreactive)
[2025-04-19 11:34] LABS: A. Phagocytphilium DNA,RT-PCR NOT DETECTED (NOT DETECTED); Babesia Microti DNA, RT-PCR NOT DETECTED (NOT DETECTED); Borrelia Miyamotoi,DNA RT-PCR NOT DETECTED (NOT DETECTED); E.Chaffeensis DNA RT-PCR NOT DETECTED (NOT DETECTED); Lyme(Borrelia ssp)DNA RT-PCR NOT DETECTED (NOT DETECTED)
== END 2025-04-18 21:21 | disposition home or self-care (01) ==
PROVIDERS: Registered Nurse Emergency; Emergency Provider Emergency Medicine; PCP Internal Medicine
DX: R21 Rash and other nonspecific skin eruption (principal); F11.20 Opioid dependence, uncomplicated
CPT/HCPCS: 36415; 80053; 85025; 86617; 86618; 86780; 87468; 87469; 87478; 87484; 87798; 99283

== ENCOUNTER 2025-04-24 15:34 | Outpatient (AMB) | payer OTHER, SELFPAY ==
--- NOTE | 2025-04-24 15:57 | A.OFFPC_ITS ---
Vital Signs 04/24/25 15:59 Height 5 ft Weight 103 lb 6 oz BMI 20.2 BP 130/70 Blood Pressure Location Lt brachial Position Sitting Pulse 86 Pulse Source Pulse Oximeter Temp 96.9 F Temp Source Temporal Artery Scan Pulse Oximetry (%) 97 Oxygen Delivery Method Room Air Intake Visit Reasons: [facility] [place] 04/18 Intake Note: Patient is here to follow-up after a visit the emergency department at [facility] [place] on 04/18/25 Director Of Gift Planning Required: No Transmitter Engineer: Not Required per policy Accompanied by: Self / Same As Patient Allergies alprazolam (From XANAX) Allergy (Intermediate, Verified 04/24/25 16:09) SEIZURE tramadol Allergy (Intermediate, Verified 04/24/25 16:09) Seizure Gabapentin Allergy (Intermediate, Uncoded 04/24/25 16:09) abdominal pains Cymbalta Allergy (Mild, Uncoded 04/24/25 16:09) headaches Medication List - Last Reconciled 04/24/25 by NANETTE Hayes buprenorphine-naloxone 8-2 mg (Suboxone) 1 film sublingual BID 30 days famotidine 40 mg PO DAILY 90 days hydroxyzine HCl 25 mg PO TID PRN ibuprofen 800 mg PO Q8H PRN pantoprazole 40 mg PO DAILY 90 days Tobacco use date assessed: 04/24/25 Fall risk assessment: No Falls in past year Last assessed Fall Risk: 04/24/25 Dental Screening Dental Screen Date: 04/24/25 Did you have a dental visit in the last 12 months?: No Did you have a dental problem in the last 6 months where you did not have access to dental care?: No Was dental information given to patient?: No HPI [facility] – [place] 04/18 HPI Details The patient is a 70-year-old female history of opioid use disorder now in remission on Suboxone, alcohol use disorder, anxiety, GERD, depression, chronic back pain Patient is presenting for post hospital follow up visit related to full body rash for over 2 months The patient reports that the areas start as erythematous lesions that open up and turn into scabs She reports that this is extremely itchy, causing her to itch the areas and making them worse The patient has been seen by multiple providers and was treated for scabies, then noted that this was not related to scabies She was placed on a steroid taper which has helped to alleviate the symptoms The patient states that she has been exposed to ticks frequently, however she denies joint pains and has no suspicion rash The patient was given an script for hydroxyzine and was told to take Zyrtec as needed in the ED She was also encouraged to contact her campaign specialist to confirm an appointment She reports that she has a tick panel pending In office today: the patient reports that she did not booked the appointment with Dermatology due to them offer in her an appointment in September Explained to the patient that she needs to take the appointment because she might not be able to getting sooner at other places Patient reports that she has been taking about 4 Benadryl at a time to calm the itchiness She reports taking 3 of the hydroxyzine that she was prescribed in the emergency room without any relief Reports that the prednisone completed and she noted a itchiness starting up again On assessment the patient has widespread rashes all over her back in his small cyst on the lower back, over her lumbar spine She denies fevers and chills, denies any body aches She will contact back [facility] to confirm an appointment. [facility] Medical History Vitamin D deficiency History of seizure Nausea Poor historian Diarrhea Nausea & vomiting Opioid use disorder, moderate, dependence History of opioid use Abdominal pain Sinusitis Allergic rhinitis History of breast cancer Osteopenia Depression Lumbar degenerative disc disease Myalgia Fatigue Paresthesia of bilateral legs Bilateral lower extremity pain Surgical History History of esophagogastroduodenoscopy (EGD) Hx of colonoscopy Hx of hysterectomy Lump of right breast Hx of tonsillectomy History of lumpectomy of both breasts Family History Father Hypertension Cardiovascular disease Stroke Mother Hypertension Stroke Cardiovascular disease Sister Breast cancer Maternal Aunt Breast cancer Other Mental health problem Substance abuse Social History Household Members Other:: mother Housing: House Are you a primary career placement services counselor to a significant other at home: No Do you presently have visiting nurse or other home services: No Alcohol intake: current Alcohol intake frequency: a few times a month Patient Tobacco Use Status: Never used Tobacco e-Cigarette/Vaping Use: Never Used Second Hand Smoke Exposure: No service: No Current occupational status: employed Cognitive needs: No Hearing needs: No Vision needs: Yes (Reading Glasses) Questionnaire PHQ-9 Over the last 2 weeks, how often have you been bothered by any of the following problems? 1. Little interest or pleasure in doing things: not at all 2. Feeling down, depressed, or hopeless: not at all 3. Trouble falling or staying asleep, or sleeping too much: not at all 4. Feeling tired or having little energy: not at all 5. Poor appetite or overeating: not at all 6. Feeling bad about yourself - or that you are a failure or have let yourself or your family down: not at all 7. Trouble concentrating on things, such as reading the newspaper or watching television: not at all 8. Moving or speaking so slowly that other people could have noticed. Or the opposite - being so fidgety or restless that you have been moving around a lot more than usual: not at all 9. Thoughts that you would be better off or of hurting yourself in some way: not at all Total score: 0 Depression Screening Interpretation: Negative Depression Screening Done: Yes Source: Developed by Drs. Tee Galaviz, Bee Shelley, Andrzej Herring and colleagues, with an educational william from [employer]. Thrive Questionnaire Date Thrive assessed: 04/24/25 I am a: Patient What is your living situation today?: I have a steady place to live Within the past 12 months, did the food you bought not last and you didn't have the money to get more?: Never true Within the past 12 months, did you worry whether your food would run out before you got money to buy more?: Never true Do you have trouble paying for medicines?: No Do you have trouble getting transportation to medical appointments?: No Do you have trouble paying your heating and electricity bill?: No Do you have trouble taking care of your child, family member or friend?: No Do you have trouble with day-to-day activities such as bathing, preparing meals, shopping, managing finances, etc.?: No Are you currently unemployed and looking for a job?: No Are you interested in more education?: No Please select the resources that you would like help with: None Currently or been in a relationship where the following occur: No concerns reported THRIVE Score: 0 AUDIT C Alcohol Use Questionnaire (AUDIT-C) 1. How often do you have a drink containing alcohol?: 2-3 times a week 2. How many drinks containing alcohol do you have on a typical day when you are drinking?: 1 or 2 3. How often do you have six or more drinks on one occasion?: Less than monthly Total Score: 4 NIA-7 AMB Questionnaire NIA-7 Date NIA - 7 assessed: 04/24/25 Feeling nervous, anxious, or on edge: 0 = Not at all Not being able to stop or control worryin = Not at all Worrying too much about different things: 0 = Not at all Trouble relaxin = Not at all Being so restless that it is hard to sit still: 0 = Not at all Becoming easily annoyed or irritable: 0 = Not at all Feeling afraid as if something awful might happen: 0 = Not at all Total NIA-7 score (0-4 normal; 5-9 mild; 10-14 moderate; 15-21 severe): 0 Source: Developed by Drs. Tee Galaviz, Bee Shelley, Andrzej Herring and colleagues, with an educational william from [employer]. Review of Systems Const Denies body aches, Denies chills, Denies fever(s), Denies headache(s) and Denies poor appetite Eyes Reports no additional complaints ENT Denies dysphagia, Denies dizziness, Denies headache(s) and Denies odynophagia Card Denies chest pain, Denies syncope, Denies edema, Denies irregular heart rhythm, Denies lightheadedness and Denies dyspnea Resp Denies cough and Denies dyspnea GI Denies abdominal pain, Denies constipation, Denies dysphagia, Denies diarrhea, Denies nausea, Denies odynophagia and Denies vomiting Reports no additional complaints Musc Reports no additional complaints and Denies abnormal gait Skin/Breast Reports pruritus, Reports erythema and Reports rash Neuro Denies abnormal gait, Denies dizziness, Denies syncope and Denies headache(s) Psych Reports no additional complaints Physical exam (Primary Care) Vital Signs: Last Vital Signs Temp 96.9 F 04/24/25 15:59 Pulse 86 04/24/25 15:59 BP 130/70 04/24/25 15:59 Pulse Ox 97 04/24/25 15:59 Oxygen Delivery Method Room Air 04/24/25 15:59 BMI result Body Mass Index 20.2 Tobacco/Smoking Status: Tobacco use Status Tobacco use date assessed 04/24/25 04/24/25 16:04 Patient Tobacco Use Status Never used Tobacco 04/24/25 16:04 e-Cigarette/Vaping Use Never Used 04/24/25 16:04 PHQ-9: PHQ-9 Score PHQ-9: Total score 0 04/26/25 07:52 Depression Screening Interpretation: Negative Thrive Assessment: Date of Thrive Assessment Date Thrive assessed 04/24/25 04/24/25 16:04 Currently or been in a relationship where the following occur: No concerns reported Const General: cooperative, healthy appearing, comfortable and no acute distress Orientation/consciousness: patient oriented x3 HENMT Head: Yes normocephalic Ears: hearing grossly normal bilaterally General nose exam: Normal external nose present Eyes General: appearance normal, both eyes and all related structures Conjunctivae: conjunctivae normal Neck Neck: Yes full ROM and Yes no lymphadenopathy Resp Effort & Inspection: normal respiratory effort Auscultation: clear to auscultation bilaterally, no crackles, no rales, no rhonchi and no wheezes Cardio Rate: regular rate Rhythm: regular rhythm Heart sounds: S1 normal heart sound present and S2 normal heart sound present Skin Rashes: rashes noted (Widespread, raised, erythematous, hyperpigemented areas, chest, arms, back) Neuro General: patient oriented x3 Gait exam (Neuro): Normal gait present Extrem General: Yes normal to inspection, Yes full ROM and No edema Psych Affect: normal affect Attitude: cooperative Insight: Good insight present (Psych) Judgement: Good judgement present (Psych) Coding Level of Care Code Est Pt Level 3 (31965) Diagnoses Pruritic dermatitis L30.8 Epidermoid cyst of skin of back L72.0 Time Spent (min) 34 Assessment & Plan Assessment & Plan (1) Pruritic dermatitis: Code(s): L30.8 - Other specified dermatitis Category: Medical Plan: The patient rashes are widespread, completely covering her back, most of chest area, arms and legs. Reports intense itchiness. She was recently on prednisone with positive effect. She was prescribed hydroxyzine 25 mg t.i.d. p.r.n. in the emergency room and was encouraged to take Zyrtec as needed. The patient can not get into Dermatology until September of 2025. Will put the patient on a prednisone tapered and refill hydroxyzine. Clotrimazole-betamethasone 1-0.05% was ordered to apply to the areas that the patient could reach. Discouraged the patient from using more than the recommended amount of benadryl. (2) Epidermoid cyst of skin of back: Code(s): L72.0 - Epidermal cyst Category: Medical Plan: The patient has a small cyst over lumbar spine. Doxycycline 100mg bid x 10 days was ordered. She is also concerned about tick bites, but no other associated symptoms, but however, explained to her that the doxycycline will cover the tick concern as well. Medications: New doxycycline monohydrate 100 mg PO BID 20 caps 0RF 10 days prednisone see taper instructions take 4 tabs x2 days, then 3 tabs x 2 days, then take 2 tabs x 2 days, then 1 tab x 2 days = 20 tabs x 8 days 10 mg PO DIRECTED 20 tabs 0RF clotrimazole-betamethasone 1-0.05 % 1 appl topical BID 45 grams 1RF 4 weeks
[2025-04-24 15:59] VITALS: BP 130/70; PULSE 86; TEMP 36.1; O2SAT 97; BMI 20.2
--- OUTSIDE RECORDS SUMMARY | 2025-04-24 18:17 | XMS_ITS | Clinical Summary ---
[facility] Address [address] [place] [address] Care Team Providers Care Sheet Heater Helper Name Role Phone Unavailable Primary Care Provider Unavailabl e Social History Tobacco Use Types Packs/Day Years Used Date Smoking Tobacco: Never Assessed Sex and Gender Information Value Date Recorded Sex Assigned at Not on file Gender Identity Not on file Sexual Orientation Not on file Plan of Treatment Not on file
== END 2025-04-24 16:36 | disposition home or self-care (01) ==
LOC: HO.HMCH 15:35
PROVIDERS: PCP Internal Medicine
DX: L30.8 Other specified dermatitis (principal); L72.0 Epidermal cyst

== ENCOUNTER 2025-05-21 14:11 | Outpatient (AMB) | payer OTHER, SELFPAY ==
[2025-05-21 14:12] VITALS: PULSE 90; O2SAT 96; BMI 20.9
--- NOTE | 2025-05-21 14:12 | MHC.OFFVIS ---
Vital Signs 05/21/25 14:12 Height 5 ft Weight 107 lb BMI 20.9 Pulse 90 Pulse Source Pulse Oximeter Pulse Oximetry (%) 96 Oxygen Delivery Method Room Air Intake Visit Reasons: [facility] Allergies alprazolam (From XANAX) Allergy (Intermediate, Verified 05/21/25 14:13) SEIZURE tramadol Allergy (Intermediate, Verified 05/21/25 14:13) Seizure Gabapentin Allergy (Intermediate, Uncoded 04/24/25 16:09) abdominal pains Cymbalta Allergy (Mild, Uncoded 04/24/25 16:09) headaches HPI Comments Details: History of Present Illness The patient is a 70-year-old female presenting with a rash. She notes that the rash was assessed by dermatology, with a determination that it appears more consistent with scratches rather than a typical dermatological condition. The patient is on Suboxone for her Opioid Use Disorder and does not believe this medication to be the cause of her rash. She denies other common symptoms associated with her condition, such as depression or constipation. The current plan is to continue with the Suboxone regimen as there have been no significant adverse effects reported. Follow-up appointments are scheduled to monitor her condition. Review of Systems - Skin: Reports rash evaluated by dermatology as scratches, not a true rash - Psychiatric: Denies depression - Gastrointestinal: Denies constipation Physical Exam - Vitals- Stable Results Plan Patient was informed and verbally consented to the use of an ambient scribe for clinic note documentation during this visit. 1. Rash Based on dermatological evaluation, the rash appears as scratches and is not associated with Suboxone use. Monitoring will continue. 2. Opioid use, unspecified, uncomplicated F11.90 The patient continues with Suboxone treatment, reporting no adverse symptoms relevant to the disorder. The treatment plan will not change, and the patient will return for the scheduled follow-up. Discussion Notes During the visit, we discussed the patient's current issues including the rash that was evaluated and considered to be more mary jane to scratches rather than a typical rash, with no concern of Suboxone involvement. The patient agreed to continue with her current medication, Suboxone, for her opioid use disorder, as it appears effective and without side-effects. I addressed the importance of abiding by the current medication regimen and attending scheduled follow-ups to ensure continued management of her conditions. Medical Decision Making In examining the patient's condition, the plan is to continue with the present course of treatment with Suboxone for opioid use disorder, in light of stable vital signs and absence of negative effects like depression or constipation. The presenting rash was evaluated and described as scratches, thus not an immediate concern warranting change in treatment strategy. Continued monitoring and evaluation of her condition will be conducted in future visits to adapt the management plan as necessary. Patient Instructions - Continue taking Suboxone as prescribed. - Monitor the rash; seek additional care if it worsens or new symptoms develop. - Follow up with scheduled appointments to assess progress. [facility] Medical History Vitamin D deficiency History of seizure Nausea Poor historian Diarrhea Nausea & vomiting Opioid use disorder, moderate, dependence History of opioid use Abdominal pain Sinusitis Allergic rhinitis History of breast cancer Osteopenia Depression Lumbar degenerative disc disease Myalgia Fatigue Paresthesia of bilateral legs Bilateral lower extremity pain Surgical History History of esophagogastroduodenoscopy (EGD) Hx of colonoscopy Hx of hysterectomy Lump of right breast Hx of tonsillectomy History of lumpectomy of both breasts Family History Father Hypertension Cardiovascular disease Stroke Mother Hypertension Stroke Cardiovascular disease Sister Breast cancer Maternal Aunt Breast cancer Other Mental health problem Substance abuse Social History Household Members Other:: mother Housing: House Are you a primary respiratory care program director to a significant other at home: No Do you presently have visiting nurse or other home services: No Alcohol intake: current Alcohol intake frequency: a few times a month Patient Tobacco Use Status: Never used Tobacco e-Cigarette/Vaping Use: Never Used Second Hand Smoke Exposure: No service: No Current occupational status: employed Cognitive needs: No Hearing needs: No Vision needs: Yes (Reading Glasses) Physical Exam Vital Signs: Last Vital Signs Pulse 90 05/21/25 14:12 Pulse Ox 96 05/21/25 14:12 Oxygen Delivery Method Room Air 05/21/25 14:12 BMI result Body Mass Index 20.9 Assessment & Plan Assessment & Plan (1) Anxiety: Comment: Expresses extreme anxiety due to living situation with her mother-she may need some type intervention helps for some change Depression, denies suicidal or homicidal ideation Her adult son lives with her as well Code(s): F41.9 - Anxiety disorder, unspecified Category: Medical Plan: as above (2) Depression: Comment: stable mood/affect. Code(s): F32.9 - Major depressive disorder, single episode, unspecified Category: Medical Qualifiers: Active/Remission status: currently active Depression Type: major depressive disorder Major depression episode severity: unspecified Major depression recurrence: recurrent Qualified Code(s): F33.9 - Major depressive disorder, recurrent, unspecified Plan: as above (3) Opioid use disorder, moderate, in sustained remission: Comment: She is doing well Code(s): F11.21 - Opioid dependence, in remission Category: Medical Plan: as above Orders: Referrals Counseling Referral F33.9 - Major depressive disorder, recurrent, unspecified, F41.9 - Anxiety disorder, unspecified Medications: New buprenorphine-naloxone 8-2 mg (Suboxone) 1 film sublingual BID 60 ea 1RF 30 days Coding Level of Care Code Est Pt Level 3 (87404) Diagnoses Anxiety F41.9 Episode of recurrent major depressive disorder, unspecified depression episode severity F33.9 Active/Remission status: currently active Depression Type: major depressive disorder Major depression episode severity: unspecified Major depression recurrence: recurrent Opioid use disorder, moderate, in sustained remission F11.21
--- OUTSIDE RECORDS SUMMARY | 2025-05-21 16:31 | XMS_ITS | Clinical Summary ---
Author Organization [facility] Address [address] [place] [address] Phone Care Team Providers Care Rug Receiving Clerk Name Role Phone Physician, No Pcp Primary Care Provider Unavaila ble Allergies Active Allergy Reactions Criticality Noted Date Comments Alprazolam Seizures High 05/03/2025 Encounters Date Type Department Care Team Description 05/03/2025 10:02 AM EDT - 05/03/2025 3:25 PM EDT Emergency [facility] Emergency [address] [place] [address] Ata Rubio MD Nonintractable headache, unspecified chronicity pattern, unspecified headache type (Primary Dx) Discharge Disposition: Home or Self Care from Last 3 Months Social History Tobacco Use Types Packs/Day Years Used Date Smoking Tobacco: Never Assessed Comments Unknown Sex and Gender Information Value Date Recorded Sex Assigned at Not on file Legal Sex Female 9:54 AM EDT Gender Identity Not on file Sexual Orientation Not on file Obstetrics History Last Filed Vital Signs Vital Sign Reading Time Taken Comments Blood Pressure 128/68 05/03/2025 2:39 PM EDT Pulse 72 05/03/2025 2:39 PM EDT Temperature 36.9 C (98.4 F) 05/03/2025 2:39 PM EDT Respiratory Rate 18 05/03/2025 2:39 PM EDT Oxygen Saturation 99% 05/03/2025 2:39 PM EDT Inhaled Oxygen Concentration - - Weight 46.7 kg (103 lb) 05/03/2025 9:59 AM EDT Height 152.4 cm (5') 05/03/2025 9:59 AM EDT Body Mass Index 20.12 05/03/2025 9:59 AM EDT Plan of Treatment Health Maintenance Due Date Last Done Comments Breast Cancer Screening 1955 Colorectal Cancer Screening: Colonoscopy 1955 DTaP,Tdap,and Td Vaccines (1 - Tdap) 1974 Pneumococcal Vaccine: 50+ Ye ars (1 of 1 - PCV) 2005 Zoster Vaccines (1 of 2) 2005 Depression Screening 07/12/2024 COVID-19 Vaccine (1 - 2023-2 5 season) 2025 Influenza Vaccine (#1) 2025 Falls Risk Assessment 05/03/2025 Hepatitis C Screening 05/03/2025 Osteoporosis Screening (Bone Density Screening) 05/03/2025 Social Influencers of Health Screening 05/03/2025 RSV Immunization Adult Patie nts (1 - 1-dose 75+ series) 2030 HIB Vaccines Aged Out No longer eligi ble based on patient's age to complete this topic HPV Vaccines Aged Out No longer eligi ble based on patient's age to complete this topic Hepatitis A Vaccines Aged Out No long er eligible based on patient's age to complete this topic Hepatitis B Vaccines Aged Out No long er eligible based on patient's age to complete this topic IPV Vaccines Aged Out No longer eligi ble based on patient's age to complete this topic MMR Vaccines Aged Out No longer eligi ble based on patient's age to complete this topic Meningococcal ACWY Vaccine Aged Out N o longer eligible based on patient's age to complete this topic Meningococcal B Vaccine Aged Out No l onger eligible based on patient's age to complete this topic RSV Immunization Patients Un michelet 20 months Aged Out No longer eligible b ased on patient's age to complete this topic Varicella Vaccines Aged Out No longer eligible based on patient's age to complete this topic Procedures Procedure Name Priority Date/Time Associated Diagnosis Comments ECG ANNOTATED 05/04/2025 CORBETT URINE CULTURE TUBE STAT 05/03/20 12:27 PM EDT URINALYSIS WITH REFLEX MICROSCOPIC AND CULTURE STAT 05/03/2025 12:27 PM EDT URINALYSIS WITH REFLEX MICROSCOPIC AND CULTURE STAT 05/03/2025 12:27 PM EDT CBC WITH AUTO DIFFERENTIAL STAT 05/03/2025 11:52 AM EDT CBC AND DIFFERENTIAL STAT 05/03/2025 11:52 AM EDT ACTIVATED PARTIAL THROMBOPLASTIN TIME STAT 05/03/2025 11:52 AM EDT PROTHROMBIN TIME WITH INR STAT 05/03/2025 11:52 AM EDT TROPONIN I HIGH SENSITIVITY STAT 05/03/2025 11:52 AM EDT THYROXINE FREE STAT 05/03/2025 11:52 AM EDT THYROID STIMULATING HORMONE STAT 05/03/2025 11:52 AM EDT PHOSPHORUS STAT 05/03/2025 11:52 AM EDT MAGNESIUM STAT 05/03/2025 11:52 AM EDT HEPATIC FUNCTION PANEL STAT 11:52 AM EDT C-REACTIVE PROTEIN STAT 05/03/2025 11 :52 AM EDT BASIC METABOLIC PANEL STAT 05/03/2025 11:52 AM EDT ECG 12-LEAD STAT 05/03/2025 10:[address] HEAD WO CONTRAST STAT 05/03/2025 1 0:27 AM EDT from Last 3 Months Results * ECG-Annotated (05/04/2025) us Provider Onbase MD ECG ORDERABLES Final Result * (ABNORMAL) Urinalysis with reflex microscopic and culture (05/03/2025 12:27 PM EDT) [facility] Signature Specific [place] Urine 1.026 1.003 - 1.030 LAB URINALYSIS - AUTOMATED METHOD [facility] pH, Urine 6.5 5.0 - 8.0 pH LAB URINALYSIS - AUTOMATED METHOD 05/03/2025 12:43 PM [facility] Leukocytes, Urine Negative Negative LAB URINALYSIS - AUTOMATED METHOD 05/03/2025 12:43 PM [facility] Nitrite, Urine Negative Negative LAB URINALYSIS - AUTOMATED METHOD 05/03/2025 12:43 PM [facility] Protein, Urine Trace <=Trace mg/dL LAB URINALYSIS - AUTOMATED METHOD 05/03/2025 12:43 PM [facility] Glucose, Urine Negative Negative mg/dL LAB URINALYSIS - AUTOMATED METHOD 05/03/2025 12:43 PM [facility] Ketones, Urine Trace(A) Negative mg/dL LAB URINALYSIS - AUTOMATED METHOD 05/03/2025 12:43 PM [facility] Urobilinogen, Urine 0.2 0.2 - 1.0 mg/dL LAB URINALYSIS - AUTOMATED METHOD 05/03/2025 12:43 PM [facility] Bilirubin, Urine Negative Negative LAB URINALYSIS - AUTOMATED METHOD 05/03/2025 12:43 PM [facility] Blood, Urine Negative Negative LAB URINALYSIS - AUTOMATED METHOD 05/03/2025 12:43 PM [facility] Urine Urine specimen obtained by clean catch procedure / Unknown Non-blood Collection / Unknown 05/03/2025 12:27 PM EDT 05/03/2025 12:30 PM EDT us Ata Rubio MD LAB URINE ORDERABLES Final Result [facility] [address] [place] [address], [place] [phone] * Corb[place] urine culture tube (05/03/2025 12:27 PM EDT) [facility] [place] Extra Tube Hold for add-ons. 05/03/2025 2:01 PM EDT [facility] Comment:Auto resulted. Urine Urine specimen obtained by clean catch procedure / Unknown Non-blood Collection / Unknown 05/03/2025 12:27 PM EDT 05/03/2025 12:30 PM EDT us Ata Rubio MD LAB URINE ORDERABLES Final Result [facility] [address] [place] [address], [place] [phone] * Troponin I High Sensitivity (05/03/2025 11:52 AM EDT) [facility] [place] High Sensitivity Troponin I 6 <=54 ng/L LAB CHEMISTRY METHOD 05/03/2025 12:47 PM EDT [facility] Blood Venous blood specimen / Unknown Venipuncture / Unknown 05/03/2025 11:52 AM EDT 05/03/2025 12:06 PM EDT Narrative [facility] - 05/03/2025 12:47 PM EDT High levels of biotin in samples may falsely decrease hsTroponin values. Use caution when interpreting hsTroponin results in patients taking biotin who exhibit renal impairment (eGFR <60) or in patients taking more than 20 mg/day of biotin. us Ata Rubio MD LAB BLOOD ORDERABLES Final Result [facility] [address] [place] [address], [place] [phone] * (ABNORMAL) CBC auto differential (05/03/2025 11:52 AM EDT) [facility] [place] WBC 4.7(L) 4.8 - 10.8 K/mcL LAB HEMETOLOGY METHOD 05/03/2025 12:21 PM [facility] RBC 3.60(L) 3.80 - 4.80 M/mcL LAB HEMETOLOGY METHOD 05/03/2025 12:21 PM [facility] Hemoglobin 11.4(L) 11.5 - 16.0 g/dL LAB HEMETOLOGY METHOD 05/03/2025 12:21 PM [facility] Hematocrit 34.3(L) 35.0 - 47.0 % LAB HEMETOLOGY METHOD 05/03/2025 12:21 PM [facility] MCV 96.3 79.0 - 98.0 FL LAB HEMETOLOGY METHOD 05/03/2025 12:21 PM [facility] MCH 32.0 27.0 - 32.0 pcg LAB HEMETOLOGY METHOD 05/03/2025 12:21 PM [facility] MCHC 33.2 32.0 - 37.0 g/dL LAB HEMETOLOGY METHOD 05/03/2025 12:21 PM [facility] RDW 12.6 11.0 - 15.0 % LAB HEMETOLOGY METHOD 05/03/2025 12:21 PM [facility] Platelets 318 130 - 400 K/mcL LAB HEMETOLOGY METHOD 05/03/2025 12:21 PM [facility] MPV 8.9 7.0 - 11.0 FL LAB HEMETOLOGY METHOD 05/03/2025 12:21 PM [facility] NRBC 0.0 <1.0 % LAB HEMETOLOGY METHOD 05/03/2025 12:21 PM [facility] NRBC Absolute 0.00 <0.10 K/mcL LAB HEMETOLOGY METHOD 05/03/2025 12:21 PM [facility] Neutrophils Relative 80.2 % LAB HEMETOLOGY METHOD 05/03/2025 12:21 PM [facility] Lymphocytes Relative 11.9 % LAB HEMETOLOGY METHOD 05/03/2025 12:21 PM [facility] Monocytes Relative 6.6 % LAB HEMETOLOGY METHOD 05/03/2025 12:21 PM [facility] Eosinophils Relative 1.1 % LAB HEMETOLOGY METHOD 05/03/2025 12:21 PM [facility] Basophils Relative 0.0 % LAB HEMETOLOGY METHOD 05/03/2025 12:21 PM [facility] Immature Granulocytes Relative 0.2 % LAB HEMETOLOGY METHOD 05/03/2025 12:21 PM [facility] Neutrophils Absolute 3.77 1.50 - 7.00 K/mcL LAB HEMETOLOGY METHOD 05/03/2025 12:21 PM [facility] Lymphocytes Absolute 0.56(L) 1.00 - 5.00 K/mcL LAB HEMETOLOGY METHOD 05/03/2025 12:21 PM [facility] Monocytes Absolute 0.31 0.20 - 1.00 K/mcL LAB HEMETOLOGY METHOD 05/03/2025 12:21 PM [facility] Eosinophils Absolute 0.05 0.00 - 0.50 K/mcL LAB HEMETOLOGY METHOD 05/03/2025 12:21 PM [facility] Basophils Absolute 0.00 0.00 - 0.20 K/mcL LAB HEMETOLOGY METHOD 05/03/2025 12:21 PM [facility] Immature Granulocytes Absolute 0.01 0.00 - 0.03 K/mcL LAB HEMETOLOGY METHOD 05/03/2025 12:21 PM [facility] Blood Venous blood specimen / Unknown Venipuncture / Unknown 05/03/2025 11:52 AM EDT 05/03/2025 12:06 PM EDT us Ata Rubio MD LAB BLOOD ORDERABLES Final Result [facility] [address] [place] [address], [place] [phone] * APTT (05/03/2025 11:52 AM EDT) aPTT 29.6 24.1 - 39.3 sec LAB COAGULATION METHOD 05/03/2025 12:21 PM EDT [facility] Blood Venous blood specimen / Unknown Venipuncture / Unknown 05/03/2025 11:52 AM EDT 05/03/2025 12:06 PM EDT us Ata Rubio MD LAB BLOOD ORDERABLES Final Result Performing Organization Address [facility]/ZIP Co de Phone Number [facility] [address] [place] [address], [place] [phone] * Protime-INR (05/03/2025 11:52 AM EDT) [facility] [place] Protime 11.3 10.6 - 13.9 sec LAB COAGULATION METHOD 05/03/2025 12:21 PM EDT [facility] INR 0.9 LAB COAGULATION METHOD 05/03/2025 12:21 PM EDT [facility] Blood Venous blood specimen / Unknown Venipuncture / Unknown 05/03/2025 11:52 AM EDT 05/03/2025 12:06 PM EDT us Ata Rubio MD LAB BLOOD ORDERABLES Final Result Performing Organization Address City/[facility]/ZIP Co de Phone Number [facility] [address] [place] [address], [place] [phone] * (ABNORMAL) C-reactive protein (05/03/2025 11:52 AM EDT) C-Reactive Protein 0.52(H) <=0.50 mg/dL LAB CHEMISTRY METHOD 05/03/2025 12:48 PM EDT [facility] Blood Venous blood specimen / Unknown Venipuncture / Unknown 05/03/2025 11:52 AM EDT 05/03/2025 12:06 PM EDT us Ata Rubio MD LAB BLOOD ORDERABLES Final Result Performing Organization Address City/[facility]/ZIP Co de Phone Number [facility] [address] [place] [address], [place] [phone] * Thyroid Stimulating Hormone (TSH) (05/03/2025 11:52 AM EDT) [facility] TSH 0.69 0.40 - 4.00 mcIU/mL LAB CHEMISTRY METHOD 05/03/2025 2:28 PM EDT [facility] Blood Venous blood specimen / Unknown Venipuncture / Unknown 05/03/2025 11:52 AM EDT 05/03/2025 12:06 PM EDT us Ata Rubio MD LAB BLOOD ORDERABLES Final Result Performing Organization Address City/[facility]/ZIP Co de Phone Number [facility] [address] [place] [address], [place] [phone] * T4, Free (05/03/2025 11:52 AM EDT) [facility] [place] Free T4 1.07 0.70 - 1.80 ng/dL LAB CHEMISTRY METHOD 05/03/2025 2:28 PM EDT [facility] Blood Venous blood specimen / Unknown Venipuncture / Unknown 05/03/2025 11:52 AM EDT 05/03/2025 12:06 PM EDT us Ata Rubio MD LAB BLOOD ORDERABLES Final Result Performing Organization Address [facility]/ZIP Co de Phone Number [facility] [address] [place] [address], * Phosphorus (05/03/2025 11:52 AM EDT) Pathologist [facility] Phosphorus 2.7 2.5 - 4.5 mg/dL LAB CHEMISTRY METHOD 05/03/2025 12:48 PM EDT [facility] Blood Venous blood specimen / Unknown Venipuncture / Unknown 05/03/2025 11:52 AM EDT 05/03/2025 12:06 PM EDT Ata Rubio MD LAB BLOOD ORDERABLES Final Result Performing Organization Address [facility] Co de Phone Number [facility] [address] [place] [address], * Magnesium (05/03/2025 11:52 AM EDT) [facility] Magnesium 2.1 1.9 - 2.6 mg/dL LAB CHEMISTRY METHOD 05/03/2025 12:48 PM EDT [facility] Blood Venous blood specimen / Unknown Venipuncture / Unknown 05/03/2025 11:52 AM EDT 05/03/2025 12:06 PM EDT Ata Rubio MD LAB BLOOD ORDERABLES Final Result Performing Organization Address [facility]/ZIP Co de Phone Number [facility] [address] [place] [address], [place] [phone] * Hepatic Function Panel (05/03/2025 11:52 AM EDT) Pathologist [facility] Total Protein 6.3 6.0 - 8.0 g/dL LAB CHEMISTRY METHOD 05/03/2025 12:48 PM EDT [facility] Albumin 3.3 3.2 - 5.0 g/dL LAB CHEMISTRY METHOD 05/03/2025 12:48 PM EDT [facility] Total Bilirubin 0.4 0.0 - 1.4 mg/dL LAB CHEMISTRY METHOD 05/03/2025 12:48 PM [facility] Bilirubin, Direct <0.1 0.0 - 0.3 mg/dL LAB CHEMISTRY METHOD 05/03/2025 12:48 PM T [facility] Bilirubin, Indirect LAB CHEMISTRY METHOD 05/03/2025 12:48 PM EDT [facility] Comment:Unable to calculate Indirect Bilirubin. ALT (SGPT) 41 10 - 60 unit/L LAB CHEMISTRY METHOD 05/03/2025 12:48 PM [facility] AST (SGOT) 32 10 - 42 unit/L LAB CHEMISTRY METHOD 05/03/2025 12:48 PM [facility] Alkaline Phosphatase 95 42 - 121 unit/L LAB CHEMISTRY METHOD 05/03/2025 12:48 PM [facility] Blood Venous blood specimen / Unknown Venipuncture / Unknown 05/03/2025 11:52 AM EDT 05/03/2025 12:06 PM EDT us Ata Rubio MD LAB BLOOD ORDERABLES Final Result [facility] [address] [place] [address], * (ABNORMAL) Basic Metabolic Panel (BMP) (05/03/2025 11:52 AM EDT) Sodium 137 133 - 145 mmol/L LAB CHEMISTRY METHOD 05/03/2025 12:48 PM T [facility] Potassium 4.3 3.5 - 5.5 mmol/L LAB CHEMISTRY METHOD 05/03/2025 12:48 PM [facility] Chloride 107 96 - 110 mmol/L LAB CHEMISTRY METHOD 05/03/2025 12:48 PM EDT [facility] CO2 26 21 - 32 mmol/L LAB CHEMISTRY METHOD 05/03/2025 12:48 PM EDT [facility] Anion Gap 4 3 - 11 LAB CHEMISTRY METHOD 05/03/2025 12:48 PM [facility] Glucose 116(H) 70 - 100 mg/dL LAB CHEMISTRY METHOD 05/03/2025 12:48 PM [facility] BUN 16 5 - 25 mg/dL LAB CHEMISTRY METHOD 05/03/2025 12:48 PM [facility] Creatinine 0.59 0.50 - 1.10 mg/dL LAB CHEMISTRY METHOD 05/03/2025 12:48 PM [facility] eGFR 97 >=60 mL/min/1. 73m2 LAB CHEMISTRY METHOD 05/03/2025 12:48 PM EDT [facility] Comment:Calculation based on the Chronic Kidney Disease Epidemiology Collaboration (CKD-EPI) equation refit without adjustment for race. BUN/Creatinine Ratio 27.1 LAB CHEMISTRY METHOD 05/03/2025 12:48 PM [facility] Calcium 8.9 8.5 - 10.5 mg/dL LAB CHEMISTRY METHOD 05/03/2025 12:48 PM [facility] Blood Venous blood specimen / Unknown Venipuncture / Unknown 05/03/2025 11:52 AM EDT 05/03/2025 12:06 PM EDT us Ata Rubio MD LAB BLOOD ORDERABLES Final Result [facility] [address] [place] [address], * ECG 12 lead (05/03/2025 10:39 AM EDT) Ventricular Rate ECG 72 BPM GEMUSE Atrial Rate 72 BPM GEMUSE P-R Interval 130 ms GEMUSE QRS Duration 86 ms GEMUSE Q-T Interval 408 ms GEMUSE QTc 446 ms GEMUSE P Wave [place] 30 degrees GEMUSE R [place] 37 degrees GEMUSE T [place] 14 degrees GEMUSE ECG Interpretation Normal sinus rhythm Normal ECG No previous ECGs available Confirmed by DELANEY JOHNSON ([id number]) on 05/03/2025 5:46:01 PM GEMUSE 05/03/2025 10:3 9 AM EDT 05/03/2025 5:46 PM EDT us Ata Rubio MD ECG ORDERABLES Final Resul t GEMUSE * CT Head wo Contrast (05/03/2025 10:27 AM EDT) Anatomical Region Laterality Modality Head and Neck Computed Tomogra phy 05/03/2025 10:3 2 AM EDT Impressions 05/03/2025 10:34 AM EDT No evidence of acute intracranial process on noncontrast head CT. Atrophy and age-related changes. -------- FINAL REPORT -------- Dictated By: Diane Jimenez Dictated Date: 05/03/2025 10:32 ET Assigned Physician: Diane Jimenez Reviewed and Electronically Signed By: Diane Jimenez Signed Date: 05/03/2025 10:34 ET Workstation ID: [id number] Transcribed By: Self Edit Transcribed Date: 05/03/2025 10:32 ET Narrative 05/03/2025 10:34 AM EDT INDICATION: Headache Technique: Axial images were obtained from the skull base to the vertex without contrast enhancement. Coronal and sagittal reformats obtained. Scanner: [employer] 64 slice VCT Dose reduction technique: ASIR (Adaptive statistical iterative reconstruction) Dose: total exam DLP 716 mGY per cm Comparison: No prior studies available for comparison. FINDINGS: Intracranial contents: No acute intracranial hemorrhage, midline shift or mass-effect. The ventricles, sulci, sylvian fissures and basilar cisterns are symmetrically enlarged most consistent with atrophy. Very mild periventricular white matter changes are most consistent with small vessel ischemic disease. There are no abnormal intra or extra-axial fluid collections. Bony structures/soft tissues: Within normal limits for the patient's age. Sinuses: paranasal sinuses are clear. Procedure Note Diane Jimenez MD - 05/03/2025 INDICATION: Headache Technique: Axial images were obtained from the skull base to the vertexwithout contrast enhancement. Coronal and sagittal reformats obtained. Scanner: [employer] 64 slice VCT Dose reduction technique: ASIR (Adaptive statistical iterativereconstruction) Dose: total exam DLP 716 mGY per cm Comparison: No prior studies available for comparison. FINDINGS: Intracranial contents: No acute intracranial hemorrhage, midline shift ormass- effect. The ventricles, sulci, sylvian fissures and basilar cisternsare symmetrically enlarged most consistent with atrophy. Very mildperiventricular white matter changes are most consistent with small vesselischemic disease. There are no abnormal intra or extra-axial fluidcollections. Bony structures/soft tissues: Within normal limits for the patient'claudia. Sinuses: paranasal sinuses are clear. IMPRESSION: No evidence of acute intracranial process on noncontrast head CT. Atrophy and age-related changes. -------- FINAL REPORT -------- Dictated By: Diane Jimenez Dictated Date: 05/03/2025 10:32 ET Assigned Physician: Diane Jimenez Reviewed and Electronically Signed By: Diane Jimenez Signed Date: 05/03/2025 10:34 ET Workstation ID: [id number] Transcribed By: Self Edit Transcribed Date: 05/03/2025 10:32 ET us Ata Rubio MD IMG CT PROCEDURES Final Res ult from Last 3 Months Insurance MEDICARE Care Teams Rug Receiving Clerk Relationship Specialty Start Date End Date Physician, No Pcp PCP - General 05/03/25
== END 2025-05-21 14:58 | disposition home or self-care (01) ==
PROVIDERS: PCP Internal Medicine; Visit Provider Internal Medicine
DX: F41.9 Anxiety disorder, unspecified (principal); F33.9 Major depressive disorder, recurrent, unspecified; F11.21 Opioid dependence, in remission
CPT/HCPCS: 99213

== ENCOUNTER 2025-05-24 11:00 | Outpatient (REF) | payer OTHER, SELFPAY ==
--- NOTE | ~2025-05-24 | MM_ITS ---
EXAMINATION: MM DIAGNOSTIC DIGITAL BREAST TOMOSYNTHESIS, BILATERAL Right breast ultrasound. CLINICAL INFORMATION: 6 month follow-up for left breast asymmetry on CC view without prior sonographic correlate. Patient reports new right breast palpable lump superior right breast. History of right breast cancer 2001 post lumpectomy. COMPARISON: Mammography: Comparison is made with relevant prior exams. TECHNIQUE: Digital breast mammography with tomosynthesis is performed in both the craniocaudal and mediolateral oblique views along with computer-aided detection (CAD). FINDINGS: The breasts are heterogeneously dense, which may obscure small masses. Left: Previously seen asymmetry in the retroareolar region of the left breast on CC view is not significantly changed from prior. No prior sonographic correlate was seen. No suspicious calcifications or other abnormal findings. Right: 2 BB markers in the upper outer breast/low axilla far posterior depth without underlying abnormal finding. No suspicious calcifications or other abnormal findings. Targeted color Doppler ultrasound in the right axillary area of patient's palpable lump 10:00 10 cm from nipple demonstrates a hypoechoic subdermal solid mass versus scar tissue versus lymph node at 10:00 10 cm from the nipple measuring 5 x 5 x 2 mm. Results are provided to the patient at time of visit by the technologist. MM/MM tomosynthesis diagnostic BI IMPRESSION: Left: Asymmetry retroareolar region of the left breast on CC view without prior sonographic correlate which is not significantly changed from prior dating back for one year. Recommend one-year follow-up when the patient will be due for bilateral mammography to demonstrate 2 years of stability. Right: Right breast palpable lumps low axilla with underlying hypoechoic oval solid mass versus scar tissue at 10:00 10 cm from the nipple. Recommend ultrasound guided core needle biopsy for confirmation. The findings and recommendations were discussed with the patient the procedure will be scheduled. ASSESSMENT: BI-RADS Category 4: Suspicious RECOMMENDATION: Biopsy recommended One year followup left breast diagnostic mammogram. This patient's information was entered into a reminder system with a target due date for their next mammogram. Electronically signed by: Yolanda Barriga DO 05/24/2025 12:52 PM [facility]
--- OUTSIDE RECORDS SUMMARY | 2025-05-24 13:43 | XMS_ITS | Clinical Summary ---
Author Organization [facility] Address [address] [place] [address] Phone Care Team Providers Care Food Service Driver Name Role Phone Physician, No Pcp Primary Care Provider Unavaila ble Allergies Active Allergy Reactions Criticality Noted Date Comments Alprazolam Seizures High 05/03/2025 Encounters Date Type Department Care Team Description 05/03/2025 10:02 AM EDT - 05/03/2025 3:25 PM EDT Emergency [facility] Emergency [address] [place] [address] Ata Rubio MD Nonintractable headache, [...] microscopic and culture (05/03/2025 12:27 PM EDT) [facility] Signature Specific [place] Urine 1.026 1.003 - 1.030 LAB URINALYSIS - AUTOMATED METHOD [facility]/03[facility]2025 [facility] pH, Urine 6.5 5.0 - 8.0 pH LAB URINALYSIS - AUTOMATED METHOD 05/03/2025 12:43 PM [facility] Leukocytes, Urine Negative Negative LAB URINALYSIS - AUTOMATED METHOD 05/03/2025 12:43 PM [facility] Nitrite, Urine Negative Negative LAB URINALYSIS - AUTOMATED METHOD 05/03/2025 12:43 PM [facility] Protein, Urine Trace <=Trace mg/dL LAB URINALYSIS - AUTOMATED METHOD 05/03/2025 12:43 PM [facility] Glucose, Urine Negative Negative mg/dL LAB URINALYSIS - AUTOMATED METHOD 05/03/2025 12:43 PM [facility] Ketones, Urine Trace(A) Negative mg/dL LAB URINALYSIS - AUTOMATED METHOD 05/03/2025 12:43 PM [facility] Urobilinogen, Urine 0.2 0.2 - 1.0 mg/dL LAB URINALYSIS - AUTOMATED METHOD 05/03/2025 12:43 PM [facility] Bilirubin, Urine Negative Negative LAB URINALYSIS - AUTOMATED METHOD 05/03/2025 12:43 PM [facility] Blood, Urine Negative Negative LAB URINALYSIS - AUTOMATED METHOD 05/03/2025 12:43 PM [facility] Urine Urine specimen obtained by clean catch procedure / Unknown Non-blood Collection / Unknown 05/03/2025 12:27 PM EDT 05/03/2025 12:30 PM EDT us Ata Rubio MD LAB URINE ORDERABLES Final Result [facility] [address] [place] [address], [place] [phone] * Corbett urine culture tube (05/03/2025 12:27 PM EDT) [facility] Extra Tube Hold for add-ons. 05/03/2025 2:01 PM EDT [facility] Comment:Auto resulted. Urine Urine specimen obtained by clean catch procedure / Unknown Non-blood Collection / Unknown 05/03/2025 12:27 PM EDT 05/03/2025 12:30 PM EDT us Ata Rubio MD LAB URINE ORDERABLES Final Result [facility] [address] [place] [address], [place] [phone] * Troponin I High Sensitivity (05/03/2025 11:52 AM EDT) [facility] High Sensitivity Troponin I 6 <=54 ng/L LAB CHEMISTRY METHOD 05/03/2025 12:47 PM EDT [facility] Blood Venous blood specimen / Unknown Venipuncture / Unknown 05/03/2025 11:52 AM EDT 05/03/2025 12:06 PM EDT Narrative [facility] - 05/03/2025 12:47 PM EDT High levels of biotin in samples may falsely decrease hsTroponin values. Use caution when interpreting hsTroponin results in patients taking biotin who exhibit renal impairment (eGFR <60) or in patients taking more than 20 mg/day of biotin. us Ata Rubio MD LAB BLOOD ORDERABLES Final Result [facility] [address] [place] [address], [place] [phone] * (ABNORMAL) CBC auto differential (05/03/2025 11:52 AM EDT) [facility] WBC 4.7(L) 4.8 - 10.8 K/mcL LAB HEMETOLOGY METHOD 05/03/2025 12:21 PM [facility] RBC 3.60(L) 3.80 - 4.80 M/mcL LAB HEMETOLOGY METHOD 05/03/2025 12:21 PM [facility] Hemoglobin 11.4(L) 11.5 - 16.0 g/dL LAB HEMETOLOGY METHOD 05/03/2025 12:21 PM [facility] Hematocrit 34.3(L) 35.0 - 47.0 % LAB HEMETOLOGY METHOD 05/03/2025 12:21 PM [facility] MCV 96.3 79.0 - 98.0 FL LAB HEMETOLOGY METHOD 05/03/2025 12:21 PM [facility] MCH 32.0 27.0 - 32.0 pcg LAB HEMETOLOGY METHOD 05/03/2025 12:21 PM [facility] MCHC 33.2 32.0 - 37.0 g/dL LAB HEMETOLOGY METHOD 05/03/2025 12:21 PM [facility] RDW 12.6 11.0 - 15.0 % LAB HEMETOLOGY METHOD 05/03/2025 12:21 PM [facility] Platelets 318 130 - 400 K/mcL LAB HEMETOLOGY METHOD 05/03/2025 12:21 PM [facility] MPV 8.9 7.0 - 11.0 FL LAB HEMETOLOGY METHOD 05/03/2025 12:21 PM [facility] NRBC 0.0 <1.0 % LAB HEMETOLOGY METHOD 05/03/2025 12:21 PM [facility] NRBC Absolute 0.00 <0.10 K/mcL LAB HEMETOLOGY METHOD 05/03/2025 12:21 PM [facility] Neutrophils Relative 80.2 % LAB HEMETOLOGY METHOD 05/03/2025 12:21 PM [facility] Lymphocytes Relative 11.9 % LAB HEMETOLOGY METHOD 05/03/2025 12:21 PM [facility] Monocytes Relative 6.6 % LAB HEMETOLOGY METHOD 05/03/2025 12:21 PM [facility] Eosinophils Relative 1.1 % LAB HEMETOLOGY METHOD 05/03/2025 12:21 PM [facility] Basophils Relative 0.0 % LAB HEMETOLOGY METHOD 05/03/2025 12:21 PM [facility] Immature Granulocytes Relative 0.2 % LAB HEMETOLOGY METHOD 05/03/2025 12:21 PM [facility] Neutrophils Absolute 3.77 1.50 - 7.00 K/mcL LAB HEMETOLOGY METHOD 05/03/2025 12:21 PM [facility] Lymphocytes Absolute 0.56(L) 1.00 - 5.00 K/mcL LAB HEMETOLOGY METHOD 05/03/2025 12:21 PM [facility] Monocytes Absolute 0.31 0.20 - 1.00 K/mcL LAB HEMETOLOGY METHOD 05/03/2025 12:21 PM [facility] Eosinophils Absolute 0.05 0.00 - 0.50 K/mcL LAB HEMETOLOGY METHOD 05/03/2025 12:21 PM [facility] Basophils Absolute 0.00 0.00 - 0.20 K/mcL LAB HEMETOLOGY METHOD 05/03/2025 12:21 PM [facility] Immature Granulocytes Absolute 0.01 0.00 - 0.03 K/mcL LAB HEMETOLOGY METHOD 05/03/2025 12:21 PM [facility] Blood Venous blood specimen / Unknown Venipuncture / Unknown 05/03/2025 11:52 AM EDT 05/03/2025 12:06 PM EDT us Ata Rubio MD LAB BLOOD ORDERABLES Final Result [facility] [address] [place] [address], [place] [phone] * APTT (05/03/2025 11:52 AM EDT) aPTT 29.6 24.1 - 39.3 sec LAB COAGULATION METHOD 05/03/2025 12:21 PM EDT [facility] Blood Venous blood specimen / Unknown Venipuncture / Unknown 05/03/2025 11:52 AM EDT 05/03/2025 12:06 PM EDT us Ata Rubio MD LAB BLOOD ORDERABLES Final Result Performing Organization Address [facility]/ZIP Co de Phone Number [facility] [address] [place] [address], [place] [phone] * Protime-INR (05/03/2025 11:52 AM EDT) [facility] Protime 11.3 10.6 - 13.9 sec LAB COAGULATION METHOD 05/03/2025 12:21 PM EDT [facility] INR 0.9 LAB COAGULATION METHOD 05/03/2025 12:21 PM EDT [facility] Blood Venous blood specimen / Unknown Venipuncture / Unknown 05/03/2025 11:52 AM EDT 05/03/2025 12:06 PM EDT us Ata Rubio MD LAB BLOOD ORDERABLES Final Result Performing Organization Address City/[facility]/ZIP Co de Phone Number [facility] [address] [place] [address], [place] [phone] * (ABNORMAL) C-reactive protein (05/03/2025 11:52 AM EDT) C-Reactive Protein 0.52(H) <=0.50 mg/dL LAB CHEMISTRY METHOD 05/03/2025 12:48 PM EDT [facility] Blood Venous blood specimen / Unknown Venipuncture / Unknown 05/03/2025 11:52 AM EDT 05/03/2025 12:06 PM EDT us Ata Rubio MD LAB BLOOD ORDERABLES Final Result Performing Organization Address City/[facility]/ZIP Co de Phone Number [facility] [address] [place] [address], [place] [phone] * Thyroid Stimulating Hormone (TSH) (05/03/2025 11:52 AM EDT) [facility] TSH 0.69 0.40 - 4.00 mcIU/mL LAB CHEMISTRY METHOD 05/03/2025 2:28 PM EDT [facility] Blood Venous blood specimen / Unknown Venipuncture / Unknown 05/03/2025 11:52 AM EDT 05/03/2025 12:06 PM EDT us Ata Rubio MD LAB BLOOD ORDERABLES Final Result Performing Organization Address City/[facility]/ZIP Co de Phone Number [facility] [address] [place] [address], [place] [phone] * T4, Free (05/03/2025 11:52 AM EDT) [facility] Free T4 1.07 0.70 - 1.80 ng/dL LAB CHEMISTRY METHOD 05/03/2025 2:28 PM EDT [facility] Blood Venous blood specimen / Unknown Venipuncture / Unknown 05/03/2025 11:52 AM EDT 05/03/2025 12:06 PM EDT us Ata Rubio MD LAB BLOOD ORDERABLES Final Result Performing Organization Address [facility]/ZIP Co de Phone Number [facility] [address] [place] [address], * Phosphorus (05/03/2025 11:52 AM EDT) Pathologist [facility] Phosphorus 2.7 2.5 - 4.5 mg/dL LAB CHEMISTRY METHOD 05/03/2025 12:48 PM EDT [facility] Blood Venous blood specimen / Unknown Venipuncture / Unknown 05/03/2025 11:52 AM EDT 05/03/2025 12:06 PM EDT Ata Rubio MD LAB BLOOD ORDERABLES Final Result Performing Organization Address [facility] Co de Phone Number [facility] [address] [place] [address], * Magnesium (05/03/2025 11:52 AM EDT) [facility] Magnesium 2.1 1.9 - 2.6 mg/dL LAB CHEMISTRY METHOD 05/03/2025 12:48 PM EDT [facility] Blood Venous blood specimen / Unknown Venipuncture / Unknown 05/03/2025 11:52 AM EDT 05/03/2025 12:06 PM EDT Ata Rubio MD LAB BLOOD ORDERABLES Final Result Performing Organization Address [facility]/ZIP Co de Phone Number [facility] [address] [place] [address], [place] [phone] * Hepatic Function Panel (05/03/2025 11:52 AM EDT) Pathologist [facility] Total Protein 6.3 6.0 - 8.0 g/dL LAB CHEMISTRY METHOD 05/03/2025 12:48 PM EDT [facility] Albumin 3.3 3.2 - 5.0 g/dL LAB CHEMISTRY METHOD 05/03/2025 12:48 PM EDT [facility] Total Bilirubin 0.4 0.0 - 1.4 mg/dL LAB CHEMISTRY METHOD 05/03/2025 12:48 PM [facility] Bilirubin, Direct <0.1 0.0 - 0.3 mg/dL LAB CHEMISTRY METHOD 05/03/2025 12:48 PM T [facility] Bilirubin, Indirect LAB CHEMISTRY METHOD 05/03/2025 12:48 PM EDT [facility] Comment:Unable to calculate Indirect Bilirubin. ALT (SGPT) 41 10 - 60 unit/L LAB CHEMISTRY METHOD 05/03/2025 12:48 [facility] AST (SGOT) 32 10 - 42 unit/L LAB CHEMISTRY METHOD 05/03/2025 12:48 PM [facility] Alkaline Phosphatase 95 42 - 121 unit/L LAB CHEMISTRY METHOD 05/03/2025 12:48 PM [facility] Blood Venous blood specimen / Unknown Venipuncture / Unknown 05/03/2025 11:52 AM EDT 05/03/2025 12:06 PM EDT us Ata Rubio MD LAB BLOOD ORDERABLES Final Result [facility] [address] [place] [address], * (ABNORMAL) Basic Metabolic Panel (BMP) (05/03/2025 11:52 AM EDT) Sodium 137 133 - 145 mmol/L LAB CHEMISTRY METHOD 05/03/2025 12:48 PM T [facility] Potassium 4.3 3.5 - 5.5 mmol/L LAB CHEMISTRY METHOD 05/03/2025 12:48 PM [facility] Chloride 107 96 - 110 mmol/L LAB CHEMISTRY METHOD 05/03/2025 12:48 PM EDT [facility] CO2 26 21 - 32 mmol/L LAB CHEMISTRY METHOD 05/03/2025 12:48 PM EDT [facility] Anion Gap 4 3 - 11 LAB CHEMISTRY METHOD 05/03/2025 12:48 PM [facility] Glucose 116(H) 70 - 100 mg/dL LAB CHEMISTRY METHOD 05/03/2025 12:48 PM [facility] BUN 16 5 - 25 mg/dL LAB CHEMISTRY METHOD 05/03/2025 12:48 PM [facility] Creatinine 0.59 0.50 - 1.10 mg/dL LAB CHEMISTRY METHOD 05/03/2025 12:48 PM [facility] eGFR 97 >=60 mL/min/1. 73m2 LAB CHEMISTRY METHOD 05/03/2025 12:48 PM EDT [facility] Comment:Calculation based on the Chronic Kidney Disease Epidemiology Collaboration (CKD-EPI) equation refit without adjustment for race. BUN/Creatinine Ratio 27.1 LAB CHEMISTRY METHOD 05/03/2025 12:48 PM [facility] Calcium 8.9 8.5 - 10.5 mg/dL LAB CHEMISTRY METHOD 05/03/2025 12:48 PM [facility] Blood Venous blood specimen / Unknown Venipuncture / Unknown 05/03/2025 11:52 AM EDT 05/03/2025 12:06 PM EDT us Ata Rubio MD LAB BLOOD ORDERABLES Final Result [facility] [address] [place] [address], * ECG 12 lead (05/03/2025 10:39 AM EDT) Ventricular Rate ECG 72 BPM GEMUSE Atrial Rate 72 BPM GEMUSE P-R Interval 130 ms GEMUSE QRS Duration 86 ms GEMUSE Q-T Interval 408 ms GEMUSE QTc 446 ms GEMUSE P Wave Hagan 30 degrees GEMUSE R Hagan 37 degrees GEMUSE T Hagan 14 degrees GEMUSE ECG Interpretation Normal sinus [...] Signed Date: 05/03/2025 10:34 ET Workstation ID: [id number] Transcribed By: Self Edit Transcribed Date: 05/03/2025 10:32 ET Narrative 05/03/2025 10:34 AM EDT INDICATION: Headache Technique: Axial images were obtained from the skull base to the vertex without contrast enhancement. Coronal and sagittal reformats obtained. Scanner: Broken [employer] 64 slice VCT Dose reduction technique: ASIR [...] enhancement. Coronal and sagittal reformats obtained. Scanner: Broken [employer] 64 slice VCT Dose reduction technique: ASIR [...] Date: 05/03/2025 10:32 ET Assigned Physician: Diane iJmenez Reviewed and Electronically Signed By: Diane Jimenez Signed Date: 05/03/2025 10:34 ET Workstation ID: [id number] Transcribed By: Self Edit Transcribed Date: 05/03/2025 10:32 ET us Ata Rubio MD IMG CT PROCEDURES Final Res ult from Last 3 Months Insurance MEDICARE Care Teams Food Service Driver Relationship Specialty Start Date End Date Physician, No Pcp PCP - General 05/03/25
--- OUTSIDE RECORDS SUMMARY | 2025-05-24 13:43 | XMS_ITS | Clinical Summary ---
Author Organization [facility] Address [address] [place] [address] Care Team Providers Care Chemical Supervisor Name Role Phone Unavailable Primary Care Provider Unavailabl e Social History Tobacco Use Types Packs/Day Years Used Date Smoking Tobacco: Never Assessed Sex and Gender Information Value Date Recorded Sex Assigned at Not on file Gender Identity Not on file Sexual Orientation Not on file Plan of Treatment Not on file
== END 2025-05-24 11:01 | disposition home or self-care (01) ==
LOC: HO.MAMMO 11:00
PROVIDERS: PCP Internal Medicine; Visit Provider Internal Medicine
DX: N64.89 Other specified disorders of breast (principal)
CPT/HCPCS: 76642; 77062; 77066

== ENCOUNTER → 2025-05-24 11:00 | Outpatient (BNV) | payer OTHER, SELFPAY | PROVIDERS: PCP Internal Medicine; Visit Provider Internal Medicine | DX: N63.11 Unspecified lump in the right breast, upper outer quadrant (principal); R92.8 Other abnormal and inconclusive findings on diagnostic imaging of breast | CPT/HCPCS: 76642; 77062; 77066 ==

== ENCOUNTER 2025-06-12 08:41 | Outpatient (AMB) | payer OTHER, SELFPAY ==
--- NOTE | 2025-06-12 08:46 | A.OFFVIS_ITS ---
Vital Signs 3 06/12/25 08:48 Height 5 ft Weight 105 lb BMI 20.5 Intake Visit Reasons: us guided bx 10 o'clock mass Intake Note: Patient is seen in office for ultrasound biopsy CONSULT right breast for 10 o'clock mass. Pt c/o:reports tenderness right breast, reports lumps. Bx @ 9am Director Of Litigation Required: No Accompanied by: Self / Same As Patient Allergies alprazolam (From XANAX) Allergy (Intermediate, Verified 06/12/25 08:51) SEIZURE tramadol Allergy (Intermediate, Verified 06/12/25 08:51) Seizure Gabapentin Allergy (Intermediate, Uncoded 06/12/25 08:51) abdominal pains Cymbalta Allergy (Mild, Uncoded 06/12/25 08:51) headaches Medication List - Last Reconciled 06/12/25 by Kevin Solares MD buprenorphine-naloxone 8-2 mg (Suboxone) 1 film sublingual BID 30 days buprenorphine-naloxone 8-2 mg (Suboxone) 1 film sublingual BID 30 days clotrimazole-betamethasone 1-0.05 % 1 appl topical BID 4 weeks hydroxyzine HCl 25 mg PO TID PRN ibuprofen 800 mg PO Q8H PRN HPI Comments Details: 70-year-old female patient with a prior history of right breast cancer treated approximately 23 years ago, status post right breast lumpectomy, axillary lymph node dissection followed by radiation therapy and chemotherapy. She also underwent a right breast biopsy in the upper outer quadrant on 05/21/2023 ([facility]) and pathology revealed benign atrophic ducts and lobules, benign fibroadipose tissue, vessels with calcified atherosclerosis and benign skeletal muscle with degenerative changes. There was no evidence of malignancy or intramammary lymph node. She returns today following a recent diagnostic mammogram and ultrasound performed on 05/24/2025. This revealed a left breast retroareolar asymmetry noted on the CC view without prior sonographic correlate which is not significantly changed from the prior studies. One year follow-up was recommended. On the right breast however a palpable lump located in the low axilla revealed the underlying hypoechoic oval solid mass versus scar tissue in the 10 o'clock position, 10 cm from the nipple. Ultrasound-guided core biopsy was recommended. (BI-RADS 4). She is scheduled for this ultrasound-guided core biopsy later today at the [facility]. She is , reports breast-feeding her children. Her 1st child was born when she was 18 years old. Last period was at the age of 47. She denies the use of hormone replacement therapy. There was no family history of ovarian cancer. Her sister and maternal aunt have a history of breast cancer. Patient previously underwent genetic testing and was negative for clinically significant mutations. [facility] Medical History Vitamin D deficiency History of seizure Nausea Poor historian Diarrhea Nausea & vomiting Opioid use disorder, moderate, dependence History of opioid use Abdominal pain Sinusitis Allergic rhinitis History of breast cancer Osteopenia Depression Lumbar degenerative disc disease Myalgia Fatigue Paresthesia of bilateral legs Bilateral lower extremity pain Surgical History History of esophagogastroduodenoscopy (EGD) Hx of colonoscopy Hx of hysterectomy Lump of right breast Hx of tonsillectomy History of lumpectomy of both breasts Family History Father Hypertension Cardiovascular disease Stroke Mother Hypertension Stroke Cardiovascular disease Sister Breast cancer Maternal Aunt Breast cancer Other Mental health problem Substance abuse Social History Household Members Other:: mother Housing: House Are you a primary hearing care professional to a significant other at home: No Do you presently have visiting nurse or other home services: No Alcohol intake: current Alcohol intake frequency: a few times a month Patient Tobacco Use Status: Never used Tobacco e-Cigarette/Vaping Use: Never Used Second Hand Smoke Exposure: No service: No Current occupational status: employed Cognitive needs: No Hearing needs: No Vision needs: Yes (Reading Glasses) Female Reproductive History Menstrual Total pregnancies: 3 Review of Systems Const All systems reviewed & are unremarkable except as noted in HPI and below Physical Exam Const General: cooperative and no acute distress Nutritional Appearance: well nourished Orientation/consciousness: patient oriented x3 Limitations: no limitations HEENT Head: Yes normocephalic and Yes atraumatic Ears: hearing grossly normal bilaterally Chest Other: Left breast: No skin change, no nipple retraction, no nipple discharge, no palpable mass, no enlarged lymph nodes. Right breast: No skin change, no nipple retraction, no nipple discharge, well- healed incision in the lower quadrants and axilla, small palpable nodule measuring approximately 5 mm in diameter at the 10 o'clock position just below the previous axillary incision, mobile within the breast tissue, nontender to palpation, no enlarged lymph nodes Chest/axillae images: 2 1. Palpable nodule upper outer quadrant right breast Resp Effort & Inspection: normal respiratory effort, no audible wheezes, no cough and no respiratory distress Cardio Jugular venous distension: no JVD GI Inspection: Yes normal to inspection Skin Other: Warm, dry, no rash Neuro General: patient oriented x3 Extrem General: Yes no clubbing, cyanosis or edema Assessment & Plan Assessment & Plan (1) Abnormal ultrasound of breast: Code(s): R92.8 - Other abnormal and inconclusive findings on diagnostic imaging of breast Category: Medical (2) Abnormal mammogram of right breast: Code(s): R92.8 - Other abnormal and inconclusive findings on diagnostic imaging of breast Category: Medical Plan 70-year-old female patient presenting with a recent diagnostic mammogram and ultrasound which confirmed a density in the right breast at the upper outer quadrant which has been palpable to the patient for several years which she feels the lesion has increased in size slightly. She denies any pain associated with the lesion. She does have a prior history of right breast cancer and previously underwent chemotherapy and radiation therapy. She is scheduled for an ultrasound-guided core biopsy of the right breast later today at the [facility]. I recommended she return to the office in approximately 1 week to review the pathology results and discuss treatment options. She expressed understanding and agrees with the plan. Orders: Orders 2 US breast ndl core biopsy RT Today R92.8 - Other abnormal and inconclusive findings on diagnostic imaging of breast Coding Level of Care Code New Pt Level 4 (91519) Diagnoses Abnormal ultrasound of breast R92.8 Abnormal mammogram of right breast R92.8
[2025-06-12 08:48] VITALS: BMI 20.5
--- OUTSIDE RECORDS SUMMARY | 2025-06-12 08:50 | XMS_ITS | Clinical Summary ---
Author Organization [facility] Address [address] [place] [address] Care Team Providers Care Wireworker Name Role Phone Unavailable Primary Care Provider Unavailabl e Social History Tobacco Use Types Packs/Day Years Used Date Smoking Tobacco: Never Assessed Sex and Gender Information Value Date Recorded Sex Assigned at Not on file Gender Identity Not on file Sexual Orientation Not on file Plan of Treatment Not on file
--- OUTSIDE RECORDS SUMMARY | 2025-06-12 08:51 | XMS_ITS | Clinical Summary ---
Author Organization [facility] Address [address] [place] [address] Phone Care Team Providers Care Card Setter Name Role Phone Physician, No Pcp Primary Care Provider Unavaila ble Allergies Active Allergy Reactions Criticality Noted Date Comments Alprazolam Seizures High 05/03/2025 Encounters Date Type Department Care Team Description 05/03/2025 10:02 AM EDT - 05/03/2025 3:25 PM EDT Emergency [facility] Emergency [address] [place] [address] Ata Rubio MD Nonintractable headache, [...] Depression Screening 07/12/2024 COVID-19 Vaccine (1 - 2024-2 6 season) 2025 Influenza Vaccine (#1) 2025 Falls [...] microscopic and culture (05/03/2025 12:27 PM EDT) [facility] Signature Specific [place] Urine 1.026 1.003 - 1.030 LAB URINALYSIS - AUTOMATED METHOD [facility] pH, Urine 6.5 5.0 - 8.0 pH LAB URINALYSIS - AUTOMATED METHOD 05/03/2025 12:43 PM [facility] Leukocytes, Urine Negative Negative LAB URINALYSIS - AUTOMATED METHOD 05/03/2025 12:43 PM [facility] Nitrite, Urine Negative Negative LAB URINALYSIS - AUTOMATED METHOD 05/03/2025 12:43 PM [facility] Protein, Urine Trace <=Trace mg/dL LAB URINALYSIS - AUTOMATED METHOD 05/03/2025 12:43 PM [facility] Glucose, Urine Negative Negative mg/dL LAB URINALYSIS - AUTOMATED METHOD 05/03/2025 12:43 PM [facility] Ketones, Urine Trace(A) Negative mg/dL LAB URINALYSIS - AUTOMATED METHOD 05/03/2025 12:43 PM [facility] Urobilinogen, Urine 0.2 0.2 - 1.0 mg/dL LAB URINALYSIS - AUTOMATED METHOD 05/03/2025 12:43 PM [facility] Bilirubin, Urine Negative Negative LAB URINALYSIS - AUTOMATED METHOD 05/03/2025 12:43 PM [facility] Blood, Urine Negative Negative LAB URINALYSIS - AUTOMATED METHOD 05/03/2025 12:43 PM [facility] Urine Urine specimen obtained by clean catch procedure / Unknown Non-blood Collection / Unknown 05/03/2025 12:27 PM EDT 05/03/2025 12:30 PM EDT us Ata Rubio MD LAB URINE ORDERABLES Final Result [facility] [address] [place] [address], [place] [phone] * Corbett urine culture tube (05/03/2025 12:27 PM EDT) [facility] Extra Tube Hold for add-ons. 05/03/2025 2:01 PM EDT [facility] Comment:Auto resulted. Urine Urine specimen obtained by clean catch procedure / Unknown Non-blood Collection / Unknown 05/03/2025 12:27 PM EDT 05/03/2025 12:30 PM EDT us Ata Rubio MD LAB URINE ORDERABLES Final Result [facility] [address] [place] [address], [place] [phone] * Troponin I High Sensitivity (05/03/2025 11:52 AM EDT) [facility] High Sensitivity Troponin I 6 <=54 ng/L [...] Final Result [facility] [address] [place] [address], [place] [phone] * (ABNORMAL) CBC auto differential (05/03/2025 11:52 AM EDT) [facility] WBC 4.7(L) 4.8 - 10.8 K/mcL LAB HEMETOLOGY METHOD 05/03/2025 12:21 PM [facility] RBC 3.60(L) 3.80 - 4.80 M/mcL LAB HEMETOLOGY METHOD 05/03/2025 12:21 PM [facility] Hemoglobin 11.4(L) 11.5 - 16.0 g/dL LAB HEMETOLOGY METHOD 05/03/2025 12:21 PM [facility] Hematocrit 34.3(L) 35.0 - 47.0 % LAB HEMETOLOGY METHOD 05/03/2025 12:21 PM [facility] MCV 96.3 79.0 - 98.0 FL LAB HEMETOLOGY METHOD 05/03/2025 12:21 PM [facility] MCH 32.0 27.0 - 32.0 pcg LAB HEMETOLOGY METHOD 05/03/2025 12:21 PM [facility] MCHC 33.2 32.0 - 37.0 g/dL LAB HEMETOLOGY METHOD 05/03/2025 12:21 PM [facility] RDW 12.6 11.0 - 15.0 % LAB HEMETOLOGY METHOD 05/03/2025 12:21 PM [facility] Platelets 318 130 - 400 K/mcL LAB HEMETOLOGY METHOD 05/03/2025 12:21 PM [facility] MPV 8.9 7.0 - 11.0 FL LAB HEMETOLOGY METHOD 05/03/2025 12:21 PM [facility] NRBC 0.0 <1.0 % LAB HEMETOLOGY METHOD 05/03/2025 12:21 PM [facility] NRBC Absolute 0.00 <0.10 K/mcL LAB HEMETOLOGY METHOD 05/03/2025 12:21 PM [facility] Neutrophils Relative 80.2 % LAB HEMETOLOGY METHOD 05/03/2025 12:21 PM [facility] Lymphocytes Relative 11.9 % LAB HEMETOLOGY METHOD 05/03/2025 12:21 PM [facility] Monocytes Relative 6.6 % LAB HEMETOLOGY METHOD 05/03/2025 12:21 PM [facility] Eosinophils Relative 1.1 % LAB HEMETOLOGY METHOD 05/03/2025 12:21 PM [facility] Basophils Relative 0.0 % LAB HEMETOLOGY METHOD 05/03/2025 12:21 PM [facility] Immature Granulocytes Relative 0.2 % LAB HEMETOLOGY METHOD 05/03/2025 12:21 PM [facility] Neutrophils Absolute 3.77 1.50 - 7.00 K/mcL LAB HEMETOLOGY METHOD 05/03/2025 12:21 PM [facility] Lymphocytes Absolute 0.56(L) 1.00 - 5.00 K/mcL LAB HEMETOLOGY METHOD 05/03/2025 12:21 PM [facility] Monocytes Absolute 0.31 0.20 - 1.00 K/mcL LAB HEMETOLOGY METHOD 05/03/2025 12:21 PM [facility] Eosinophils Absolute 0.05 0.00 - 0.50 K/mcL LAB HEMETOLOGY METHOD 05/03/2025 12:21 PM [facility] Basophils Absolute 0.00 0.00 - 0.20 K/mcL LAB HEMETOLOGY METHOD 05/03/2025 12:21 PM [facility] Immature Granulocytes Absolute 0.01 0.00 - 0.03 K/mcL LAB HEMETOLOGY METHOD 05/03/2025 12:21 PM [facility] Blood Venous blood specimen / Unknown Venipuncture / Unknown 05/03/2025 11:52 AM EDT 05/03/2025 12:06 PM EDT us Ata Rubio MD LAB BLOOD ORDERABLES Final Result [facility] [address] [place] [address], [place] [phone] * APTT (05/03/2025 11:52 AM EDT) aPTT 29.6 24.1 - 39.3 sec LAB COAGULATION METHOD 05/03/2025 12:21 PM EDT [facility] Blood Venous blood specimen / Unknown Venipuncture / Unknown 05/03/2025 11:52 AM EDT 05/03/2025 12:06 PM EDT us Ata Rubio MD LAB BLOOD ORDERABLES Final Result Performing Organization Address [facility]/ZIP Co de Phone Number [facility] [address] [place] [address], [place] [phone] * Protime-INR (05/03/2025 11:52 AM EDT) [facility] Protime 11.3 10.6 - 13.9 sec LAB COAGULATION METHOD 05/03/2025 12:21 PM EDT [facility] INR 0.9 LAB COAGULATION METHOD 05/03/2025 12:21 PM EDT [facility] Blood Venous blood specimen / Unknown Venipuncture / Unknown 05/03/2025 11:52 AM EDT 05/03/2025 12:06 PM EDT us Ata Rubio MD LAB BLOOD ORDERABLES Final Result Performing Organization Address City/[facility]/ZIP Co de Phone Number [facility] [address] [place] [address], [place] [phone] * (ABNORMAL) C-reactive protein (05/03/2025 11:52 AM EDT) C-Reactive Protein 0.52(H) <=0.50 mg/dL LAB CHEMISTRY METHOD 05/03/2025 12:48 PM EDT [facility] Blood Venous blood specimen / Unknown Venipuncture / Unknown 05/03/2025 11:52 AM EDT 05/03/2025 12:06 PM EDT us Ata Rubio MD LAB BLOOD ORDERABLES Final Result Performing Organization Address City/[facility]/ZIP Co de Phone Number [facility] [address] [place] [address], [place] [phone] * Thyroid Stimulating Hormone (TSH) (05/03/2025 11:52 AM EDT) [facility] TSH 0.69 0.40 - 4.00 mcIU/mL LAB CHEMISTRY METHOD 05/03/2025 2:28 PM EDT [facility] Blood Venous blood specimen / Unknown Venipuncture / Unknown 05/03/2025 11:52 AM EDT 05/03/2025 12:06 PM EDT us Ata Rubio MD LAB BLOOD ORDERABLES Final Result Performing Organization Address City/[facility]/ZIP Co de Phone Number [facility] [address] [place] [address], [place] [phone] * T4, Free (05/03/2025 11:52 AM EDT) [facility] Free T4 1.07 0.70 - 1.80 ng/dL LAB CHEMISTRY METHOD 05/03/2025 2:28 PM EDT [facility] Blood Venous blood specimen / Unknown Venipuncture / Unknown 05/03/2025 11:52 AM EDT 05/03/2025 12:06 PM EDT us Ata Rubio MD LAB BLOOD ORDERABLES Final Result Performing Organization Address [facility]/ZIP Co de Phone Number [facility] [address] [place] [address], * Phosphorus (05/03/2025 11:52 AM EDT) Pathologist [facility] Phosphorus 2.7 2.5 - 4.5 mg/dL LAB CHEMISTRY METHOD 05/03/2025 12:48 PM EDT [facility] Blood Venous blood specimen / Unknown Venipuncture / Unknown 05/03/2025 11:52 AM EDT 05/03/2025 12:06 PM EDT Ata Rubio MD LAB BLOOD ORDERABLES Final Result Performing Organization Address [facility] Co de Phone Number [facility] [address] [place] [address], * Magnesium (05/03/2025 11:52 AM EDT) [facility] Magnesium 2.1 1.9 - 2.6 mg/dL LAB CHEMISTRY METHOD 05/03/2025 12:48 PM EDT [facility] Blood Venous blood specimen / Unknown Venipuncture / Unknown 05/03/2025 11:52 AM EDT 05/03/2025 12:06 PM EDT Ata Rubio MD LAB BLOOD ORDERABLES Final Result Performing Organization Address [facility]/ZIP Co de Phone Number [facility] [address] [place] [address], [place] [phone] * Hepatic Function Panel (05/03/2025 11:52 AM EDT) Pathologist [facility] Total Protein 6.3 6.0 - 8.0 g/dL LAB CHEMISTRY METHOD 05/03/2025 12:48 PM EDT [facility] Albumin 3.3 3.2 - 5.0 g/dL LAB CHEMISTRY METHOD 05/03/2025 12:48 PM EDT [facility] Total Bilirubin 0.4 0.0 - 1.4 mg/dL LAB CHEMISTRY METHOD 05/03/2025 12:48 PM [facility] Bilirubin, Direct <0.1 0.0 - 0.3 mg/dL LAB CHEMISTRY METHOD 05/03/2025 12:48 PM T [facility] Bilirubin, Indirect LAB CHEMISTRY METHOD 05/03/2025 12:48 PM EDT [facility] Comment:Unable to calculate Indirect Bilirubin. ALT (SGPT) 41 10 - 60 unit/L LAB CHEMISTRY METHOD 05/03/2025 12:[facility] AST (SGOT) 32 10 - 42 unit/L LAB CHEMISTRY METHOD 05/03/2025 12:48 PM [facility] Alkaline Phosphatase 95 42 - 121 unit/L LAB CHEMISTRY METHOD 05/03/2025 12:48 PM [facility] Blood Venous blood specimen / Unknown Venipuncture / Unknown 05/03/2025 11:52 AM EDT 05/03/2025 12:06 PM EDT us Ata Rubio MD LAB BLOOD ORDERABLES Final Result [facility] [address] [place] [address], * (ABNORMAL) Basic Metabolic Panel (BMP) (05/03/2025 11:52 AM EDT) Sodium 137 133 - 145 mmol/L LAB CHEMISTRY METHOD 05/03/2025 12:48 PM T [facility] Potassium 4.3 3.5 - 5.5 mmol/L LAB CHEMISTRY METHOD 05/03/2025 12:48 PM [facility] Chloride 107 96 - 110 mmol/L LAB CHEMISTRY METHOD 05/03/2025 12:48 PM EDT [facility] CO2 26 21 - 32 mmol/L LAB CHEMISTRY METHOD 05/03/2025 12:48 PM EDT [facility] Anion Gap 4 3 - 11 LAB CHEMISTRY METHOD 05/03/2025 12:48 PM [facility] Glucose 116(H) 70 - 100 mg/dL LAB CHEMISTRY METHOD 05/03/2025 12:48 PM [facility] BUN 16 5 - 25 mg/dL LAB CHEMISTRY METHOD 05/03/2025 12:48 PM [facility] Creatinine 0.59 0.50 - 1.10 mg/dL LAB CHEMISTRY METHOD 05/03/2025 12:48 PM [facility] eGFR 97 >=60 mL/min/1. 73m2 LAB CHEMISTRY METHOD 05/03/2025 12:48 PM EDT [facility] Comment:Calculation based on the Chronic Kidney Disease Epidemiology Collaboration (CKD-EPI) equation refit without adjustment for race. BUN/Creatinine Ratio 27.1 LAB CHEMISTRY METHOD 05/03/2025 12:48 PM [facility] Calcium 8.9 8.5 - 10.5 mg/dL LAB CHEMISTRY METHOD 05/03/2025 12:48 PM [facility] Blood Venous blood specimen / Unknown Venipuncture / Unknown 05/03/2025 11:52 AM EDT 05/03/2025 12:06 PM EDT us Ata Rubio MD LAB BLOOD ORDERABLES Final Result [facility] [address] [place] [address], * ECG 12 lead (05/03/2025 10:39 AM EDT) Ventricular Rate ECG 72 BPM GEMUSE Atrial Rate 72 BPM GEMUSE P-R Interval 130 ms GEMUSE QRS Duration 86 ms GEMUSE Q-T Interval 408 ms GEMUSE QTc 446 ms GEMUSE P Wave [place] 30 degrees GEMUSE R [place] 37 degrees GEMUSE T [place] 14 degrees GEMUSE ECG Interpretation Normal sinus [...] Signed Date: 05/03/2025 10:34 ET Workstation ID: [id number] Transcribed By: Self Edit Transcribed Date: 05/03/2025 10:32 ET Narrative 05/03/2025 10:34 AM EDT INDICATION: Headache Technique: Axial images were obtained from the skull base to the vertex without contrast enhancement. Coronal and sagittal reformats obtained. Scanner: [employer]pe[employer]jo 64 slice VCT Dose reduction technique: ASIR [...] enhancement. Coronal and sagittal reformats obtained. Scanner: [employer] 64 slice VCT Dose reduction technique: ASIR [...] Signed Date: 05/03/2025 10:34 ET Workstation ID: [id number] Transcribed By: Self Edit Transcribed Date: 05/03/2025 10:32 ET us Ata Rubio MD IMG CT PROCEDURES Final Res ult from Last 3 Months Insurance MEDICARE Care Teams Card Setter Relationship Specialty Start Date End Date Physician, No Pcp PCP - General 05/03/25
== END 2025-06-12 09:08 | disposition home or self-care (01) ==
LOC: HO.HGS 08:42
PROVIDERS: PCP Internal Medicine; Visit Provider Surgery
DX: R92.8 Other abnormal and inconclusive findings on diagnostic imaging of breast (principal)
CPT/HCPCS: 99204

== ENCOUNTER → 2025-06-12 09:00 | Outpatient (BNV) | payer OTHER, SELFPAY | PROVIDERS: PCP Internal Medicine; Visit Provider Radiology Body Imaging | DX: R92.8 Other abnormal and inconclusive findings on diagnostic imaging of breast (principal) | CPT/HCPCS: 19083 ==

== ENCOUNTER 2025-06-12 09:11 | Outpatient (REF) | payer OTHER, SELFPAY ==
--- NOTE | ~2025-06-12 | US_ITS ---
Scheduled ultrasound-guided needle core biopsy of the right breast canceled. Patient has personal history of the right breast lumpectomy for breast cancer 2000. Recent diagnostic mammogram/ultrasound workup on May 24, 2025. Ultrasound describes a 0.5 x 0.5 x 0.2 cm right palpable hypoechoic subdermal solid mass or scar tissue or lymph node located at 10 o'clock position 10 cm from the nipple. If this represents a lymph node as previously cited as one of the possibilities, retrospective review of prior images suggests that the sonographic finding could possibly correlate with the known low axillary lymph node that has been seen in multiple prior mammogram/ultrasound studies, including right breast ultrasound on February 12, 2023 (described as located at 10 o'clock position 7 cm from the nipple and measuring 0.5 x 0.2 x 0.4 cm). According to the patient, the right breast/low axillary palpable concern is less palpable today compared to approximately two weeks ago at the time of the diagnostic. After discussing the alternatives options for the scheduled biopsy, patient decided for a 6-month follow-up right breast mammogram and ultrasound. Therefore, today's scheduled biopsy was canceled. US/US breast ndl core biopsy RT Impression: Canceled ultrasound-guided needle core biopsy. Alternatively, a 6-month follow-up right breast mammogram/ultrasound will be scheduled. Electronically signed by: Misha Sethi MD 06/13/2025 10:15 AM JOMAR
== END 2025-06-12 09:12 | disposition home or self-care (01) ==
LOC: HO.MAMMO 09:11
PROVIDERS: PCP Internal Medicine; Visit Provider Surgery
DX: R92.8 Other abnormal and inconclusive findings on diagnostic imaging of breast (principal)
CPT/HCPCS: 19083